=== PATIENT | female | born 1965 | race Caucasian/White ===

== ENCOUNTER 2016-02-29 18:25 | Emergency (ER) | payer BC, OTHER ==
[~2016-02-29] VITALS: Ht 165.1 cm; Wt 51.1 kg
[~2016-02-29 18:25] MED LIST: ATENOLOL PO; COENCAP9 PO; CYM60 PO; GLUCOSAMINE PO; LEVOTHYROXINE PO; PRAVASTATIN PO
[2016-02-29 18:28] VITALS: TEMP 36.4; Ht 165.1 cm; Wt 51.1 kg
[2016-02-29] MEDS ORDERED: LORAZEPAM 1 MG TAB SL STA ×2 (19:04→19:58)
[2016-02-29 19:21] LABS: URINE APPEARANCE CLEAR (CLEAR); URINE BILIRUBIN NEG (NEG); URINE COLOR YELLOW; URINE NITRITE NEG (NEG); URINE PH 6.5 (4.5-7.5); UROBILINOGEN NEG (NEG); ZZUR CULT IF INDIC CLEAN CATCH NO
[2016-02-29 19:23] LABS: PREG INTERNAL NEGATIVE QC NEG CLEAR BACKGROUND; PREG INTERNAL POSITIVE QC POS CONTROL LINE
[2016-02-29 19:31] LABS: MANUAL MICROSCOPIC REQUIRED? NO; REVIEW REQ? YES
[2016-02-29 19:32] LABS: URINE EPITHELIAL CELL AUTO 0-5 /lpf (0-5)
[2016-02-29 19:37] LABS: BASO % 0.1 %; BASO ABS # 0.01 K/uL (0-0.2); COMPLETE YES; EOS % 0.6 %; HEMATOCRIT 39.1 % (37-47); IG% 0.1 %; LYMPH % 29.4 %; LYMPH ABS # 2.27 K/uL (1.2-3.4); MEAN CELL VOLUME 90.5 fL (80-100); MEAN CORPUSCULAR HEMOGLOBIN 31.3 pg (25-34); MEAN CORPUSCULAR HGB CONC 34.5 g/dl (32-36); MEAN PLATELET VOLUME 11.4 fL (7.4-10.4); MONO % 9.5 %; NEUT % 60.3 %; PLATELET COUNT 166 K/uL (130-400); RED BLOOD COUNT 4.32 M/uL (4.2-5.4); WHITE BLOOD COUNT 7.72 K/uL (4.8-10.8)
[2016-02-29 19:44] LABS: BENZODIAZEPINE, URINE NEG (NEG); COCAINE,URINE NEG (NEG); PHENCYCLIDINE, URINE NEG (NEG)
[2016-02-29 19:52] LABS: BUN/CREATININE RATIO 21.1 (10-20); CALCIUM 8.6 mg/dl (8.5-10.1); CREATININE 0.98 mg/dl (0.60-1.20); POTASSIUM 3.8 mmol/L (3.5-5.1)
[2016-02-29 20:03] LABS: ALB/GLOB RATIO 1.1 (0.9-2); THYROID STIMULATING HORMONE 2.86 uIu/ml (0.300-4.500)
[2016-02-29 20:07] LABS: ACETAMINOPHEN < 2 ug/ml (10-30)
--- NOTE | 2016-02-29 20:20 | EMERGENCY ROOM VISIT NOTE ---
History Report prepared by Marquise: Stanislav Mccabe Under the Supervision of: Dr. Jose Hsu M.D. First contact with patient: 18:56 Chief Complaint: MENTAL HEALTH EVALUATION Stated Complaint: DEPRESSION History of Present Illness The patient is a 51 year old female who presents to the Emergency Room with complaints of persistent depression beginning over a month ago. She has a history of anxiety and depression. She takes medication for her anxiety and depression. The patient admits that she has had thoughts of harming herself. She denies any drug or alcohol use. She also states that she has been hearing voices that aren't there. The patient notes that she has been trying to quit smoking, and she tends to hear voices when she feels the urge to smoke. She denies any homicidal ideation. She notes that she hits herself sometimes, but has never tried to kill herself before. Nothing has improved the patient's symptoms. The patient's daughter states that the patient has been having a really tough last year. She states that the patient has been dealing with currently unidentified medical problem that has caused her to lose 50 pounds. She states that the patient has been going through a divorce as well. The patient's daughter notes that the patient is allergic to many psychiatric medications and has had a lot of trouble finding medications that work. She states that the patient is on Klonopin and Trazodone. Source of History: patient, family (daughter) Onset: over a month ago Quality: other (depression) Timing: other (persistent) Modifying Factors (Relieving): other (none) Note: The patient has been hearing voices. Review of Systems See HPI for pertinent positives & negatives. A total of 10 systems reviewed and were otherwise negative. Past Medical & Surgical Medical Problems: (1) Anxiety (2) Depression (3) post op Family History No pertinent family history stated. Social History Smoking Status: Current Every Day Smoker Marital Status: Current/Historical Medications Scheduled Cholecalciferol (Vitamin D3), 1 TAB PO QPM Clonazepam (Klonopin), 0.5 MG PO BID Gabapentin (Neurontin), 200 MG PO TID Levothyroxine Sodium (Levothyroxine Sodium), 1 TAB PO DAILY Pseudoephedrine (Sudafed), 30 MG PO DAILY Pyridoxine (Vitamin B6), 25 MG PO DAILY Trazodone Hcl (Trazodone), 50 MG PO QPM [Atenolol], 50 MG PO DAILY [Pravastatin], 40 MG PO HS Allergies Coded Allergies: CI Pigment Blue 63 (Unverified Allergy, Severe, facial swelling, 02/29/16) Duloxetine (Unverified Allergy, Severe, facial swelling, 02/29/16) Mirtazapine (Unverified Allergy, Severe, hives, 02/29/16) Sertraline (Unverified Allergy, Severe, hives, 02/29/16) Nitrofurantoin (Verified Allergy, Unknown, Hives, 02/29/16) Sulfa Drugs (Verified Allergy, Unknown, HIVES, 02/29/16) Physical Exam Vital Signs Date Time Temp Pulse Resp B/P Pulse Ox O2 Delivery O2 Flow Rate FiO2 02/29/16 20:54 80 20 134/77 99 Room Air 02/29/16 18:28 36.4 112 22 174/108 97 Room Air Physical Exam PSYCH: Admits suicidal ideation. Denies homicidal ideations. Admits to auditory hallucinations. GENERAL: Patient is severely anxious appearing, sobbing uncontrollably. HEENT: No acute trauma, normocephalic atraumatic, mucous membranes moist, no nasal congestion, no scleral icterus. NECK: No stridor, no adenopathy, no meningismus, trachea is midline. LUNGS: No dyspnea. Clear to auscultation and equal bilaterally. No wheeze, no rhonchi. HEART: Regular rate and rhythm. No murmurs, rubs, gallops appreciated. ABDOMEN: Soft, nontender, bowel sounds positive, no masses appreciated, no peritonitis. BACK: No midline tenderness, no CVA tenderness EXTREMITIES: Normal motion all extremities, no cyanosis, no edema. NEUROLOGIC: Alert and oriented, no acute motor or sensory deficits, no focal weakness, cranial nerves grossly intact. SKIN: No rash, no jaundice, no diaphoresis. Medical Decision & Procedures Laboratory Results 02/29/16 19:25 Red Blood Count 4.32, Mean Corpuscular Volume 90.5, Mean Corpuscular Hemoglobin 31.3, Mean Corpuscular Hemoglobin Concent 34.5, Mean Platelet Volume 11.4, Neutrophils (%) (Auto) 60.3, Lymphocytes (%) (Auto) 29.4, Monocytes (%) (Auto) 9.5, Eosinophils (%) (Auto) 0.6, Basophils (%) (Auto) 0.1, Neutrophils # (Auto) 4.65, Lymphocytes # (Auto) 2.27, Monocytes # (Auto) 0.73, Eosinophils # (Auto) 0.05, Basophils # (Auto) 0.01 02/29/16 19:25 Test 02/29/16 18:39 02/29/16 19:25 Urine Color YELLOW Urine Appearance CLEAR (CLEAR) Urine pH 6.5 (4.5-7.5) Urine Specific [place] 1.000 (1.000-1.030) Urine Protein NEG (NEG) Urine Glucose (UA) NEG (NEG) Urine Ketones NEG (NEG) Urine Occult Blood NEG (NEG) Urine Nitrite NEG (NEG) Urine Bilirubin NEG (NEG) Urine Urobilinogen NEG (NEG) Urine Leukocyte Esterase NEG (NEG) Urine WBC (Auto) 0 /hpf (0-5) Urine RBC (Auto) 0-4 /hpf (0-4) Urine Hyaline Casts (Auto) 0 /lpf (0-5) Urine Epithelial Cells (Auto) 0-5 /lpf (0-5) Urine Bacteria (Auto) NEG (NEG) Urine Test NEG (NEG) Urine Opiates Screen NEG (NEG) Urine Methadone, Qualitative NEG (NEG) Urine Barbiturates NEG (NEG) Urine Phencyclidine (PCP) Level NEG (NEG) Ur Amphetamine/Methamphetamine NEG (NEG) MDMA (Ecstasy) Screen NEG (NEG) Urine Benzodiazepines Screen NEG (NEG) Urine Cocaine Metabolite NEG (NEG) Urine Marijuana (THC) NEG (NEG) White Blood Count 7.72 K/uL (4.8-10.8) Red Blood Count 4.32 M/uL (4.2-5.4) Hemoglobin 13.5 g/dL (12.0-16.0) Hematocrit 39.1 % (37-47) Mean Corpuscular Volume 90.5 fL (80-100) Mean Corpuscular Hemoglobin 31.3 pg (25-34) Mean Corpuscular Hemoglobin Concent 34.5 g/dl (32-36) Platelet Count 166 K/uL (130-400) Mean Platelet Volume 11.4 fL (7.4-10.4) Neutrophils (%) (Auto) 60.3 % Lymphocytes (%) (Auto) 29.4 % Monocytes (%) (Auto) 9.5 % Eosinophils (%) (Auto) 0.6 % Basophils (%) (Auto) 0.1 % Neutrophils # (Auto) 4.65 K/uL (1.4-6.5) Lymphocytes # (Auto) 2.27 K/uL (1.2-3.4) Monocytes # (Auto) 0.73 K/uL (0.11-0.59) Eosinophils # (Auto) 0.05 K/uL (0-0.5) Basophils # (Auto) 0.01 K/uL (0-0.2) RDW Standard Deviation 41.1 fL (36.4-46.3) RDW Coefficient of Variation 12.5 % (11.5-14.5) Immature Granulocyte % (Auto) 0.1 % Immature Granulocyte # (Auto) 0.01 K/uL (0.00-0.02) Anion Gap 10.0 mmol/L (3-11) Est Creatinine Clear Calc Drug Dose 55.4 ml/min Estimated GFR () 78.0 Estimated GFR (Non- 67.3 BUN/Creatinine Ratio 21.1 (10-20) Calcium Level 8.6 mg/dl (8.5-10.1) Total Bilirubin 0.2 mg/dl (0.2-1) Aspartate Amino Transf (AST/SGOT) 27 U/L (15-37) Alanine Aminotransferase (ALT/SGPT) 41 U/L (12-78) Alkaline Phosphatase 73 U/L (45-117) Total Protein 6.6 gm/dl (6.4-8.2) Albumin 3.5 gm/dl (3.4-5.0) Globulin 3.1 gm/dl (2.5-4.0) Albumin/Globulin Ratio 1.1 (0.9-2) Thyroid Stimulating Hormone (TSH) 2.860 uIu/ml (0.300-4.500) Free Thyroxine 0.99 ng/dl (0.80-1.60) Salicylates Level 2.3 mg/dl (2.8-20) Acetaminophen Level < 2 ug/ml (10-30) Ethyl Alcohol mg/dL < 3.0 mg/dl (0-3) Laboratory results as reviewed by me. Medications Administered Medications (Trade) Dose Ordered Sig/Dhaval Route Start Time Stop Time Status Last Admin Dose Admin Lorazepam (Ativan Tab) 1 mg NOW STAT SL 02/29/16 19:04 02/29/16 19:05 DC 02/29/16 19:13 1 MG Lorazepam (Ativan Tab) 1 mg NOW STAT SL 02/29/16 19:58 02/29/16 19:59 DC 02/29/16 20:04 1 MG ED Course 1856: The patient was evaluated in room A5. A complete history and physical exam was performed. 1903: Ordered Ativan Tab 1 mg SL. 1954: I checked in on the patient. She was calm for a few minutes, but then began sobbing uncontrollably. 1957: Ordered Ativan Tab 1 mg SL. 1958: The patient has been medically cleared. She is awaiting her mental health evaluation. 21:45: Accepted NATALYA Mabry pending normal T4 and EKG. Medical Decision Differential: Mood Disorder, Overdose, Infectious, Electrolyte Abnormality, Cardiac, Hepatic, Endocrine, Toxicologic, Neurologic, amongst other pathologies entertained. 51 yr old female arrives severely upset and crying. She is severely depressed and is now admitting to suicidal ideation. Medication changes without improvement recently. Clearly she is in need of inpatient treatment at this time and she/family agree. She is stable, feeling better with ativan and labs look normal. NATALYA Mabry accepting but request T4 level and EKG first which were both unremarkable. BP much improved with calming down. Impression Primary Impression: Depression Additional Impressions: Suicidal ideation, Acute anxiety, Auditory hallucinations Scribe Attestation The scribe's documentation has been prepared under my direction and personally reviewed by me in its entirety. I confirm that the note above accurately reflects all work, treatment, procedures, and medical decision making performed by me. Departure Information Dispostion Still a Patient Referrals Janelle Nguyen M.D. (PCP) Patient Instructions A Signature Page, My [facility]
[2016-02-29] MEDS ORDERED: LEVO75TA5 PO (21:19)
[2016-02-29] MEDS ORDERED: CHOL1000 PO (21:21)
[2016-02-29] MEDS ORDERED: PYRI100T4 PO (21:24)
[2016-02-29] MEDS ORDERED: GABA-112 PO (21:25)
[2016-02-29] MEDS ORDERED: CLON0.5T3 PO (21:26)
[2016-02-29] MEDS ORDERED: TRAZ50TA35 PO (21:27)
[2016-02-29] MEDS ORDERED: PSEU30TA20 PO (21:30)
[2016-03-01 00:20] VITALS: BP 123/78; PULSE 90; O2SAT 98
== END 2016-03-01 00:29 ==
LOC: C.EDB 18:27 → C.EDA 03-01 00:29
DX: F32.9 Major depressive disorder, single episode, unspecified (principal); R45.851 Suicidal ideations; F41.9 Anxiety disorder, unspecified; R44.0 Auditory hallucinations; Z79.899 Other long term (current) drug therapy

== ENCOUNTER → 2016-06-09 | Outpatient (CLI) | payer BC ==
[~2016-06-09] MED LIST changes: +CHOL1000 PO; +CLON0.5T3 PO; -COENCAP9 PO; -CYM60 PO; +GABA-112 PO; -GLUCOSAMINE PO; +LEVO75TA5 PO; -LEVOTHYROXINE PO; +PSEU30TA20 PO; +PYRI100T4 PO; +TRAZ50TA35 PO
--- NOTE | 2016-06-10 15:02 | MAMMOGRAPHY REPORT ---
BILATERAL DIGITAL SCREENING MAMMOGRAM TOMOSYNTHESIS WITH CAD: 06/09/2016 CLINICAL HISTORY: Routine screening. TECHNIQUE: Breast tomosynthesis in addition to standard 2D mammography was performed. Current study was also evaluated with a Computer Aided Detection (CAD) system. COMPARISON: Comparison is made to exams dated: 06/10/2015 ultrasound, 06/10/2015 mammogram, 05/28/2015 mammogram, 10/30/2013 mammogram, 09/15/2012 mammogram - [facility], and 11/05/2008. BREAST COMPOSITION: The tissue of both breasts is extremely dense, which lowers the sensitivity of mammography. FINDINGS: The breasts are increasingly dense compared to prior available mammograms, likely due to w eight loss. No suspicious mass, architectural distortion or cluster of new, suspicious microcalcifi cations is seen. IMPRESSION: ACR BI-RADS CATEGORY 1: NEGATIVE There is no mammographic evidence of malignancy. A 1 year screening mammogram is recommended. The p atient will receive written notification of the results. Approximately 10% of breast cancers are not detected with mammography. A negative mammographic repor t should not delay biopsy if a clinically suggestive mass is present. Olinda Reis M.D. ay/:06/09/2016 16:54:14 [place] Worker: Rosalind HOWE(R)(M), [facility] letter sent: Normal 1/2 BI-RADS Code: ACR BI-RADS Category 1: Negative
== END | disposition home or self-care (01) ==
LOC: C.MAMM 16:31
PROVIDERS: ATTEND Family Medicine
DX: Z12.31 Encounter for screening mammogram for malignant neoplasm of breast (principal)

== ENCOUNTER → 2016-08-16 | Outpatient (CLI) | payer BC ==
--- NOTE | 2016-08-16 07:01 | DIAGNOSTIC IMAGING REPORT ---
CT pelvis PELVIS W/ORAL CONT ONLY (CT) CLINICAL HISTORY: RLQ PAIN pain TECHNIQUE: Transaxial acquisition of multi axial reformatted images COMPARISON STUDY: 12/04/2015 FINDINGS: Negative study. Unremarkable bowel pattern. No abnormal mass or collection. IMPRESSION: Negative study Electronically signed by: Patricio Elizalde M.D. 08/16/2016 7:00 AM Dictated Date/Time: 08/16/2016 6:58 AM
== END | disposition home or self-care (01) ==
LOC: C.CTS 05:30
PROVIDERS: ATTEND Family Medicine
DX: R10.9 Unspecified abdominal pain (principal)

== ENCOUNTER → 2017-04-12 | Outpatient (CLI) | payer OTHER ==
--- NOTE | 2017-04-12 16:13 | PULMONARY FUNCTION TEST ---
CLINICAL DATA: A 52-year-old female with a height of 65 inches and a weight of 120 pounds, referred by Dr. Underwood for shortness of breath. Spirometry pre-bronchodilator was performed. FINDINGS: Prebronchodilator spirometry demonstrates mild obstructive airways disease. FVC was 105% of predicted. FEV1 was 79% of predicted. [id number] was 32% of predicted. IMPRESSION: Mild obstructive airways disease.
== END | disposition home or self-care (01) ==
LOC: C.RC 12:38
PROVIDERS: ATTEND Family Medicine
DX: Z72.0 Tobacco use (principal); R06.02 Shortness of breath

== ENCOUNTER 2018-11-14 16:24 | Observation (INO) ==
[2018-11-14] MEDS ORDERED: SODIUM CHLORIDE 0.9% 1000ML 1,000 ML IV ONE (16:53)
[2018-11-14] MEDS ORDERED: FAMOTIDINE 20MG/5ML IV PUSH IV STA (16:53)
[2018-11-14] MEDS ORDERED: DiphenhydrAMINE HCL 50 MG/ML VIAL IV STA (16:53)
[2018-11-14] MEDS ORDERED: methylPREDNISolone 125 MG/2 ML VIAL IV STA (16:53)
[2018-11-14 17:25] LABS: Appearance Urine Cloudy (Clear); Bilirubin Urine Negative (Negative); Blood Urine Negative (Negative); Color Urine Yellow; Glucose Urine UA Negative (Negative); Ketones Urine Negative (Negative); Leukocyte Esterase Urine Negative (Negative); Nitrite Urine Negative (Negative); Protein Urine Negative (Negative); Specific Gravity Urine 1.013 (1.000-1.030); Urobilinogen Urine Negative (Negative)
[2018-11-14 17:26] LABS: Basophils # (auto) 0.01 K/uL (0-0.2); Basophils % (auto) 0.1 %; Eosinophils # (auto) 0.04 K/uL (0-0.5); Eosinophils % (auto) 0.3 %; Hematocrit (blood only) 38.1 % (37-47); Hemoglobin 13.2 g/dL (12.0-16.0); Immature Granulocytes # (auto) 0.02 K/uL (0.00-0.02); Immature Granulocytes % (auto) 0.2 %; Lymphocytes # (auto) 1.02 K/uL (1.2-3.4); Lymphocytes % (auto) 8.1 %; Mean Corpuscular Hemoglobin 31.5 pg (25-34); Mean Corpuscular Hgb Conc 34.6 g/dL (32-36); Mean Corpuscular Volume 90.9 fL (80-100); Mean Platelet Volume 10.1 fL (7.4-10.4); Monocytes # (auto) 0.36 K/uL (0.11-0.59); Monocytes % (auto) 2.9 %; Neutrophils # (auto) 11.16 K/uL (1.4-6.5); Neutrophils % (auto) 88.4 %; Platelet Count 189 K/uL (130-400); RDW Coefficient of Variation 13.2 % (11.5-14.5); RDW Standard Deviation 43.9 fL (36.4-46.3); Red Blood Count 4.19 M/uL (4.2-5.4); White Blood Count 12.61 K/uL (4.8-10.8)
[2018-11-14 17:37] LABS: Bacteria Urine Automated Negative (Negative); Cast Urine Automated 0 /lpf (0-5); Epithelial Cell Urine Auto 0-5 /lpf (0-5); RBC Urine Automated 0-4 /hpf (0-4)
[2018-11-14] MEDS ORDERED: cefTRIAXone SODIUM 2,000 MG/70 ML BAG IV STA (17:40)
[2018-11-14] MEDS ORDERED: AZITHROMYCIN 1,000 MG in DEXTROSE 5% 250 ML IV ONE (17:40)
[2018-11-14 17:52] LABS: Albumin Level 3.6 gm/dl (3.4-5.0); BUN Creatinine Ratio 10.5 (10-20); C Reactive Protein 1.68 mg/dl (0-0.29); Calcium 9.2 mg/dl (8.5-10.1); Creatinine Clr Calc Pharmacy 73.1 ml/min; Est GFR (African American) 96.8; Est GFR (Non-African American) 83.5; Potassium 3.7 mmol/L (3.5-5.1)
[2018-11-14 17:55] LABS: Albumin Globulin Ratio 1.1 (0.9-2); Bilirubin,Total 0.3 mg/dl (0.2-1); Globulin 3.3 gm/dl (2.5-4.0); Total Protein 6.9 gm/dl (6.4-8.2)
--- NOTE | 2018-11-14 18:08 | XRay Report ---
XR chest 1V portable CLINICAL HISTORY: eval for pna dyspnea COMPARISON STUDY: No previous studies for comparison. FINDINGS: The bones soft tissues and hemidiaphragms are normal. The cardiomediastinal silhouette is n ormal. The lungs are clear. The pulmonary vasculature is normal. IMPRESSION: Negative chest. The above report was generated using voice recognition software. It may contain grammatical, syntax or spelling errors. Electronically signed by: Patricio Elizalde M.D. 11/14/2018 6:06 PM
[2018-11-14 18:22] LABS: Lyme Ab IgG w/WB Rflx Negative (Negative); Lyme Ab IgM w/WB Rflx Negative (Negative)
[2018-11-14] MEDS ORDERED: MoRPHine SULFATE 4 MG/ML 1 ML CARP\\VIAL IV STA (18:40)
--- NOTE | 2018-11-14 21:08 | History & Physical Report ---
Date of Service November 14, 2018 Assessment & Plan (1) Rash: 53 yo F with PMHx HTN, Hypothyroidism, anxiety, depression admitted for diffuse rash and polyarthralgias with history of unprotected sex and exposure to Macrobid. Diffuse Urticarial Rash and Polyarticular arthritis - Differential includes allergic urticaria, polyarthritis due to STI, relapsing polychondritis. - Pt afebrile here, no longer tachycardic. - Pt has a history of allergy to Macrobid in the past with similar reaction, however much less severe. - Lyme IgG and IgM negative. - White count mildly elevated to 12.61 with a left shift. - GC/Chlamydia pending. - HIV 1/2, HSV 1+2, RPR pending. - Elevated CRP here to 1.68, ESR pending. - Benadryl 25mg IV Q6H, Methylpred 40mg IV Q8H. Hypertension - Normotensive on this admission. - Continue home amlodipine 5mg daily. Hypothyroidism - Continue home levothyroxine 88mcg daily. Anxiety and Depression - Continue home Fluoxetine 40mg daily, Trazodone 100mg PO QHS. Dispo: Med/Surg FEN: Regular Diet DVT Prophylaxis: SCDs, ambulate as tolerates Code Status: FULL CODE Present on Admission?: Yes (2) Polyarticular arthritis: Present on Admission?: Yes (3) Hypertension: Present on Admission?: Yes (4) Depression: Present on Admission?: Yes (5) Anxiety: Present on Admission?: Yes (6) Hypothyroidism: Present on Admission?: Yes History of Present Illness 53-year-old female with past medical history of essential hypertension, depression, hypothyroidism and chronic nonspecific joint disease presented to the hospital with new onset acute itchy papular rash widespread on back and upper part of the chest associated with swelling and tenderness in both hands and ears. Patient gives history of unprotected sex 2 weeks ago, so she was checked for chlamydia, gonorrhea, herpes, HIV which she gave verbal consent, syphilis, She gives history of intermittent swelling tenderness which plummeted suspicious for relapsing polychondritis, in any event itchy rash she was giving Benadryl, steroid Sedimentation rate and CRP were ordered Most likely patient will need to follow-up with insulation nozzleman an outpatient Will continue to follow-up results of sexually-transmitted diseases Chief Complaint: rash Primary Care Provider: Janelle Nguyen 53 yo F PMHx HTN, depression, anxiety, hypothyroidism presents for pruritic rash x4 days. Reports that she was recently on a 7-day course of Macrobid for a UTI started on 11/06/18 which she completed. Began noticing some itching in her groin area first on , but since then has begun spreading to other areas of her body like her neck, back, further spreading in her groin and onto her legs and arms in a more minor way. In ED today reported that her right tongue felt a bit swollen which was what scared her into coming to the ER. Complains of some associated diffuse joint pain, swelling, and redness of her hands. Also notes that her ears feel very hot. Also reports having unprotected sex ~2 weeks ago and did not notice any lesions on her partner; is unaware of his STD status. Reports no dysuria, hematuria, vaginal discharge or pruritus. In ED here was presumptively treated for gonococcal infection with azithromycin, given Benadryl and morphine for pain and itching, and one dose methylpred. Workup started for STIs and admitting team consulted. On further interview reports no new exposures of medications other than the Macrobid. No new clothing, no new products at home or at work such as cleansers. No new foods tried. No time spent in the rojas. Reports that she vaguely recollects a physician telling her "something about Lupus". No family history of rheumatologic disease. States that she had a similar reaction to the last time she was on Macrobid, but less severe. Has had some complaints of joint pains in the past but also less severe. On interview now patient denies SOB, tongue swelling, chest pain, abdominal pain, diarrhea, constipation. Allergies Allergy/AdvReac Type Severity Reaction Status Date / Time blue dye Allergy Severe Facial Verified 11/14/18 17:34 swelling duloxetine Allergy Severe Facial Verified 11/14/18 17:34 swelling mirtazapine Allergy Severe Hives Verified 11/14/18 17:34 sertraline Allergy Severe Hives Verified 11/14/18 17:34 nitrofurantoin Allergy Unknown Hives Verified 02/29/16 18:30 Sulfa (Sulfonamide Allergy Unknown Hives Verified 11/14/18 17:34 Antibiotics) Home Medications Home Medications Medication Instructions Recorded Confirmed Type acetaminophen [Tylenol Extra 500 mg PO DIRECTED PRN 11/14/18 11/14/18 History Strength] amlodipine 5 mg PO QAM 11/14/18 11/14/18 History diphenhydramine HCl [Benadryl 25 mg PO DIRECTED PRN 11/14/18 11/14/18 History Allergy] fluoxetine 40 mg PO DAILY 11/14/18 11/14/18 History gabapentin 200 mg PO TID 11/14/18 11/14/18 History levothyroxine 88 mcg PO QAM 11/14/18 11/14/18 History pravastatin 40 mg PO HS 11/14/18 11/14/18 History trazodone 100 mg PO HS 11/14/18 11/14/18 History Past Med/Surg History Medical History Hypertension Depression (Chronic) Anxiety (Chronic) Social History Preferred Language: Occitan Communication Ability: Effective 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 Beliefs That Will Affect Care: None Current Living Situation: Alone Other Information That Helps Us Care for You: No Feels Safe at Home: Yes Safety Concerns: Feels Safe At This Time Smoking Status: Current every day smoker Tobacco Type: cigarettes ; Cigarettes Per Day: 12 per day ; Do You Dip or Chew Tobacco: No ; Hx Alcohol Use: Yes Alcohol type: beer Hx Substance Use: No Review of Systems Constitutional: + fatigue and + malaise; no fever and no chills Eyes: no dry eyes and no itchy eyes Ear, Nose, Mouth, Throat: no dysphagia "hot" ears Respiratory: no cough, no dyspnea and no wheezing Cardiovascular: no chest pain, no palpitations and no edema Gastrointestinal: no abdominal pain, no nausea, no vomiting, no constipation and no diarrhea/loose stools Genitourinary: no dysuria, no urinary frequency, no urinary urgency and no hematuria Musculoskeletal: + joint pain (hands, wrists, elbows, toes, ankles) Integumentary: + rash and + urticaria Physical Exam Constitutional: WD/WN, vitals as above Eyes: PERRL, conjunctivae normal, anicteric sclerae ENMT: Ears: Cartilage of bilateral ears is erythematous and swollen Neck: trachea midline, no thyromegaly Respiratory: normal respiratory effort, lungs clear to auscultation Cardiovascular: RRR, no murmur, no edema Gastrointestinal (Abdomen): normal bowel sounds, soft, nontender, no hepatosplenomegaly Musculoskeletal: no cyanosis or clubbing, extremities motor strength 5/5 - Left 4th MCP swollen, erythematous, TTP. - TTP of DIP, MCP of bilateral hands. Tenderness with range of motion in the form of clenching fist. Skin: + rash - Multiple wheals with surrounding erythema present on neck, scalp, back, chest, hands, intertriginous and vulvar areas. No vaginal lesions. Lesions are not vesicular in character. No drainage from lesions. Lesions not TTP. - Bilateral hands appear grossly swollen. No LE swelling. Psychiatric: A+Ox3, euthymic affect Lymphatic: no cervical or axillary lymphadenopathy Results & Data Vital Signs (Past 12 Hours) Vital Signs Temp Pulse Pulse Resp BP BP Pulse Ox 11/14/18 18:32 83 19 129/80 99 11/14/18 17:51 80 20 134/70 98 11/14/18 16:28 36.6 C 108 H 18 119/56 L 98 Laboratory Results Laboratory Results - last 24 hr 11/14/18 11/14/18 11/14/18 17:03 17:03 17:03 WBC RBC Hgb Hct MCV MCH MCHC RDW Std Deviation RDW Coeff of Anette Plt Count MPV Immature Gran % (Auto) Neut % (Auto) Lymph % (Auto) Lake % (Auto) Eos % (Auto) Baso % (Auto) Immature Gran # (Auto) Neut # (Auto) Lymph # (Auto) Lake # (Auto) Eos # (Auto) Baso # (Auto) ESR 13 Sodium 139 Potassium 3.7 Chloride 106 Carbon Dioxide 25 Anion Gap 8.0 BUN 9 Creatinine 0.81 Est Cr Clr Drug Dosing 73.1 Est GFR ( Amer) 96.8 Est GFR (Non-Af Amer) 83.5 BUN/Creatinine Ratio 10.5 Glucose 98 Calcium 9.2 Total Bilirubin 0.3 AST 18 ALT 17 Alkaline Phosphatase 67 C-Reactive Protein 1.68 H Total Protein 6.9 Albumin 3.6 Globulin 3.3 Albumin/Globulin Ratio 1.1 Urine Color Urine Appearance Urine pH Ur Specific [place] Urine Protein Urine Glucose (UA) Urine Ketones Urine Blood Urine Nitrite Urine Bilirubin Urine Urobilinogen Ur Leukocyte Esterase Urine WBC (Auto) Urine RBC (Auto) U Hyaline Cast (Auto) U Epithel Cells (Auto) Urine Bacteria (Auto) POC Ur Test RPR Lyme Disease IgG Ab Negative Lyme Disease IgM Ab Negative C.trachomatis RNA Herpes Virus Source HSV I DNA PCR HSV II DNA PCR HIV 1&2 Ab/P24 Ag 4thGn N.gonorrhoeae RNA 11/14/18 11/14/18 11/14/18 17:03 17:10 17:10 WBC 12.61 H RBC 4.19 L Hgb 13.2 Hct 38.1 MCV 90.9 MCH 31.5 MCHC 34.6 RDW Std Deviation 43.9 RDW Coeff of Anette 13.2 Plt Count 189 MPV 10.1 Immature Gran % (Auto) 0.2 Neut % (Auto) 88.4 Lymph % (Auto) 8.1 Lake % (Auto) 2.9 Eos % (Auto) 0.3 Baso % (Auto) 0.1 Immature Gran # (Auto) 0.02 Neut # (Auto) 11.16 H Lymph # (Auto) 1.02 L [place] # (Auto) 0.36 Eos # (Auto) 0.04 Baso # (Auto) 0.01 ESR Sodium Potassium Chloride Carbon Dioxide Anion Gap BUN Creatinine Est Cr Clr Drug Dosing Est GFR ( Amer) Est GFR (Non-Af Amer) BUN/Creatinine Ratio Glucose Calcium Total Bilirubin AST ALT Alkaline Phosphatase C-Reactive Protein Total Protein Albumin Globulin Albumin/Globulin Ratio Urine Color Yellow Urine Appearance Cloudy A Urine pH 5.0 Ur Specific [place] 1.013 Urine Protein Negative Urine Glucose (UA) Negative Urine Ketones Negative Urine Blood Negative Urine Nitrite Negative Urine Bilirubin Negative Urine Urobilinogen Negative Ur Leukocyte Esterase Negative Urine WBC (Auto) 1-5 Urine RBC (Auto) 0-4 U Hyaline Cast (Auto) 0 U Epithel Cells (Auto) 0-5 Urine Bacteria (Auto) Negative POC Ur Test NEG RPR Lyme Disease IgG Ab Lyme Disease IgM Ab C.trachomatis RNA Herpes Virus Source HSV I DNA PCR HSV II DNA PCR HIV 1&2 Ab/P24 Ag 4thGn N.gonorrhoeae RNA 11/14/18 11/14/18 11/14/18 17:40 20:35 20:35 WBC RBC Hgb Hct MCV MCH MCHC RDW Std Deviation RDW Coeff of Anette Plt Count MPV Immature Gran % (Auto) Neut % (Auto) Lymph % (Auto) Lake % (Auto) Eos % (Auto) Baso % (Auto) Immature Gran # (Auto) Neut # (Auto) Lymph # (Auto) Lake # (Auto) Eos # (Auto) Baso # (Auto) ESR Sodium Potassium Chloride Carbon Dioxide Anion Gap BUN Creatinine Est Cr Clr Drug Dosing Est GFR ( Amer) Est GFR (Non-Af Amer) BUN/Creatinine Ratio Glucose Calcium Total Bilirubin AST ALT Alkaline Phosphatase C-Reactive Protein Total Protein Albumin Globulin Albumin/Globulin Ratio Urine Color Urine Appearance Urine pH Ur Specific [place] Urine Protein Urine Glucose (UA) Urine Ketones Urine Blood Urine Nitrite Urine Bilirubin Urine Urobilinogen Ur Leukocyte Esterase Urine WBC (Auto) Urine RBC (Auto) U Hyaline Cast (Auto) U Epithel Cells (Auto) Urine Bacteria (Auto) POC Ur Test RPR Pending Lyme Disease IgG Ab Lyme Disease IgM Ab C.trachomatis RNA Pending Herpes Virus Source Pending HSV I DNA PCR Pending HSV II DNA PCR Pending HIV 1&2 Ab/P24 Ag 4thGn Pending N.gonorrhoeae RNA Pending Code Status & VTE Plan Code Status FULL VTE Prophylaxis Plan VTE Prophylaxis will be ordered: Yes PG Care Time/CCT Total # of Minutes Spent Total Time Spent with Patient: Total time spent is greater than 50% in coordination of care (as documented) at patient's floor/unit and/or counseling patient: Resident Activity Tracking Resident Involvement: Resident Care Provided Care Provided: Adult Hospital Medicine (1) Depression Active/Remission status: in remission of unspecified degree Depression Type: major depressive disorder Major depression recurrence: unspecified whether recurrent Qualified Code(s): F32.5 - Major depressive disorder, single episode, in full remission (2) Hypothyroidism Hypothyroidism type: unspecified Qualified Code(s): E03.9 - Hypothyroidism, unspecified (3) Hypertension Hypertension type: essential hypertension Qualified Code(s): I10 - Essential (primary) hypertension
[2018-11-14] MEDS ORDERED: ACETAMINOPHEN 325 MG TAB PO PRN (21:42)
[2018-11-14] MEDS ORDERED: NON-FORMULARY MEDICATION (Diphenhydramine Hcl [Benadryl Allergy] 25 MG) PO PRN (21:42)
[2018-11-14] MEDS ORDERED: POLYETHYLENE (MIRALAX) 17 GM PACK PO PRN (21:42)
[2018-11-14] MEDS ORDERED: ACETAMINOPHEN 500 MG TAB PO PRN (21:42)
[2018-11-14] MEDS ORDERED: MAGNESIUM HYDROXIDE SUSP 30 ML UDC PO PRN (21:42)
[2018-11-14] MEDS ORDERED: TRAZODONE HCL 100 MG TAB PO SCH (21:42)
[2018-11-14] MEDS ORDERED: PRAVASTATIN SOD 40 MG TAB PO SCH (21:42)
[2018-11-14] MEDS ORDERED: ALUMINUM/MAGNESIUM SUSP 30 ML UDC PO PRN (21:42)
[2018-11-14] MEDS: GABAPENTIN 100 MG CAP PO SCH (22:05)
--- NOTE | 2018-11-14 22:20 | Emergency Department Note ---
Entered by Kelly Horowitz acting as a scribe for History of Present Illness General Chief complaint: Allergic Reaction Stated complaint: ALLERGIC REACTION, HIVES, THROAT NUMBNESS Source: patient Limitations: no limitations History of Present Illness Onset (ago): day(s) 1 Location: head Pain Consistency: + constant and + other (worsening) Maximum Pain Intensity: 7 Quality: + other (allergic reaction) Relieved By: + other (Tylenol ) Associated symptoms: + denies other symptoms (current urinary symptoms, difficulty breathing, and throat tightness) and + other (sore joints, lightheadedness, rash, hives) The patient is a 53 year old female who presents to the Emergency Room with complaints of an allergic reaction that began yesterday at 13:00, about 28 hours ago. She reports that she had a UTI and was prescribed Macrobid 10 days ago, stating that she finished her dose 2 days ago. The patient reports that she noticed pruritic hives yesterday on her neck. She notes that the hives have since worsened, stating that she noticed hives on her back today. The patient complains of right-sided tongue swelling and tingling in her lips that began at 13:00 today. She reports that she noticed a rash in her pubic area after shaving 8-9 days ago, stating that the rash has spread to areas where she didn't shave. She states this is the same rash she has on her back. The patient complains of feeling feverish. She complains of joint soreness in her wrists and ankles and lightheadedness. The patient denies any current urinary symptoms, difficulty breathing, and throat tightness. She notes that Tylenol has provided some relief. The patient notes that she took Benadryl [employer] HEL[employer]. She reports that she called her PCP and was referred here. The patient notes a history of hypertension. Home Medications Home Medications Medication Instructions Recorded Confirmed Type acetaminophen [Tylenol Extra 500 mg PO DIRECTED PRN 11/14/18 11/14/18 History Strength] amlodipine 5 mg PO QAM 11/14/18 11/14/18 History diphenhydramine HCl [Benadryl 25 mg PO DIRECTED PRN 11/14/18 11/14/18 History Allergy] fluoxetine 40 mg PO DAILY 11/14/18 11/14/18 History gabapentin 200 mg PO TID 11/14/18 11/14/18 History levothyroxine 88 mcg PO QAM 11/14/18 11/14/18 History pravastatin 40 mg PO HS 11/14/18 11/14/18 History trazodone 100 mg PO HS 11/14/18 11/14/18 History Allergies Allergy/AdvReac Type Severity Reaction Status Date / Time blue dye Allergy Severe Facial Verified 11/14/18 17:34 swelling duloxetine Allergy Severe Facial Verified 11/14/18 17:34 swelling mirtazapine Allergy Severe Hives Verified 11/14/18 17:34 sertraline Allergy Severe Hives Verified 11/14/18 17:34 nitrofurantoin Allergy Unknown Hives Verified 02/29/16 18:30 Sulfa (Sulfonamide Allergy Unknown Hives Verified 11/14/18 17:34 Antibiotics) Past Med/Surg History Medical History Hypertension Depression (Chronic) Anxiety (Chronic) Social History Preferred Language: Scottish Communication Ability: Effective Detail Sergeant Required: No Beliefs That Will Affect Care: None Current Living Situation: Alone Other Information That Helps Us Care for You: No Feels Safe at Home: Yes Safety Concerns: Feels Safe At This Time Smoking Status: Current every day smoker Tobacco Type: cigarettes ; Cigarettes Per Day: 12 per day ; Do You Dip or Chew Tobacco: No ; Hx Alcohol Use: Yes Alcohol type: beer Hx Substance Use: No Review of Systems See HPI for pertinent positives & negatives. and A total of 10 systems reviewed and were otherwise negative Physical Exam Vital Signs Vital Signs - 24 hr 11/14/18 16:28 11/14/18 17:51 11/14/18 18:32 Temperature 36.6 C Temperature Source Oral Sepsis Recent Fever Within 48 Hours No Sepsis New/Unexplained Change in Mental Status No Sepsis Action Taken by Nursing No Action Required Pulse Rate 108 H Pulse Rate [Finger] 80 83 Respiratory Rate 18 20 19 Blood Pressure 119/56 L Blood Pressure [Right Arm] 134/70 129/80 Blood Pressure Mean 77 Blood Pressure Mean [Right Arm] 91 96 Pulse Oximetry 98 98 99 Oxygen Delivery Method Room Air 11/14/18 20:00 Temperature Temperature Source Sepsis Recent Fever Within 48 Hours Sepsis New/Unexplained Change in Mental Status Sepsis Action Taken by Nursing Pulse Rate Pulse Rate [Finger] 70 Respiratory Rate 19 Blood Pressure Blood Pressure [Right Arm] 119/59 L Blood Pressure Mean Blood Pressure Mean [Right Arm] 79 Pulse Oximetry 98 Oxygen Delivery Method Constitutional: Vital signs reviewed. Eyes: Pupils are equal round reactive to light. Conjunctiva are noninjected. ENT: Pharynx is clear without erythema or exudate. Mucous membranes are moist. No swelling to the uvula or tongue. There is a small 1 cm nodule to the right lateral tongue. Neck supple without meningeal signs. Respiratory: Clear to auscultation bilaterally. Breath sounds are equal bilaterally. Cardiovascular: Regular rate and rhythm. No rubs or gallops. GI: Soft, nondistended and nontender. Bowel sounds are present. : Erythematous nodules throughout the outer external genitalia. No significant discharge or erythema. Musculoskeletal: No peripheral edema. No lower extremity tenderness. Diffuse nodular erythematous lesions over her back. Some coalescence to the right ribs. Minimal scattered lesions to the leg. Lesions surrounding the genitalia outside of the hairline. No petechiae or purpura. Some lesion have a target appearance. No vesicles or bullae. Swelling to the left fourth digit with tenderness. Slight swelling to the wrist and ankles. Integumentary: No cyanosis. Neurological: The patient is awake and alert. No focal deficits. Psychiatric: Normal affect. Course 1640: The patient was evaluated in room B11. A complete history and physical exam was performed. 1716: I checked on the patient, and she stated that she has never has herpes. 1723: The patient told the nurse that she had unprotected sex three weeks ago. She denies any pelvic pain or abdominal vaginal discharge but would like a pelvic exam and some testing. 1830: I reevaluated the patient and updated her on the results. Her blood pressure improved. She requested pain medication. 1835: I spoke with Dr. Sade Freeman, [facility] hospitalist, about the patients case. He will further evaluate the patient. Consultations Consultation #1: I spoke with Dr. Sade Freeman, [facility] hospitalist, about the patients case. He will further evaluate the patient. Time: 18:35 Administered Medications Gabapentin (Neurontin) 200 mg PO TID TEODORO Stop: 12/14/18 21:41 Last Admin: 11/14/18 22:05 Dose: 200 mg Documented by: [id number] Pravastatin Sodium (Pravachol) 40 mg PO HS TEODORO Stop: 12/14/18 21:41 Last Admin: 11/14/18 22:04 Dose: 40 mg Documented by: [id number] Trazodone HCl (Desyrel) 100 mg PO HS TEODORO Stop: 12/14/18 21:41 Last Admin: 11/14/18 22:04 Dose: 100 mg Documented by: [id number] Discontinued Medications Diphenhydramine HCl (Benadryl) 50 mg IV NOW STA Stop: 11/14/18 16:54 Last Admin: 11/14/18 17:18 Dose: 50 mg Documented by: [id number] Famotidine (Pepcid 20mg Iv Push) 20 mg IV ONE STA Stop: 11/14/18 16:54 Last Admin: 11/14/18 17:18 Dose: 20 mg Documented by: [id number] Sodium Chloride (Nss 1000ml) 1,000 mls @ 999 mls/hr IV .Q1H1M ONE Stop: 11/14/18 17:53 Last Infusion: 11/14/18 18:32 Dose: 0 mls/hr Documented by: [id number] Admin: 11/14/18 17:17 Dose: 999 mls/hr Documented by: [id number] Azithromycin 1,000 mg/ (Dextrose) 260 mls @ 125 mls/hr IV ONE ONE Stop: 11/14/18 19:44 Last Infusion: 11/14/18 21:03 Dose: 0 mls/hr Documented by: [id number] Admin: 11/14/18 18:32 Dose: 125 mls/hr Documented by: [id number] Ceftriaxone Sodium (Rocephin) 2,000 mg in 70 mls @ 140 mls/hr IV NOW STA Stop: 11/14/18 18:09 Last Infusion: 11/14/18 19:23 Dose: 0 mls/hr Documented by: [id number] Admin: 11/14/18 18:32 Dose: 140 mls/hr Documented by: [id number] Methylprednisolone (Solumedrol) 125 mg IV NOW STA Stop: 11/14/18 16:54 Last Admin: 11/14/18 17:18 Dose: 125 mg Documented by: [id number] Morphine Sulfate (Morphine Sulfate) 4 mg IV NOW STA Stop: 11/14/18 18:41 Last Admin: 11/14/18 18:45 Dose: 4 mg Documented by: [id number] Medical Decision Making Differential Diagnosis The differential diagnosis includes: Disseminated gonococcal infection, erythema multiforme, erythema nodosum, urticaria, allergic reaction, and Lyme disease Medical Records Attestation: I reviewed the patient's medical records. I did perform a limited focused review of portions of the patient's old chart on the electronic medical record. The patient has had no recent pertinent visits to this hospital. Home Medications Current Medication List: was personally reviewed by me Laboratory Data Attestation: I reviewed the patient's lab results. Result diagrams: 11/14/18 17:03 11/14/18 17:03 Lab Results 11/14/18 11/14/18 11/14/18 Range/Units 17:03 17:03 17:03 WBC (4.8-10.8) K/uL RBC (4.2-5.4) M/uL Hgb (12.0-16.0) g/dL Hct (37-47) % MCV (80-100) fL MCH (25-34) pg MCHC (32-36) g/dL RDW Std Deviation (36.4-46.3) fL RDW Coeff of Anette (11.5-14.5) % Plt Count (130-400) K/uL MPV (7.4-10.4) fL Immature Gran % (Auto) % Neut % (Auto) % Lymph % (Auto) % [place] % (Auto) % Eos % (Auto) % Baso % (Auto) % Immature Gran # (Auto) (0.00-0.02) K/uL Neut # (Auto) (1.4-6.5) K/uL Lymph # (Auto) (1.2-3.4) K/uL [place] # (Auto) (0.11-0.59) K/uL Eos # (Auto) (0-0.5) K/uL Baso # (Auto) (0-0.2) K/uL ESR 13 (0-21) mm/hr Sodium 139 (136-145) mmol/L Potassium 3.7 (3.5-5.1) mmol/L Chloride 106 (98-107) mmol/L Carbon Dioxide 25 (21-32) mmol/L Anion Gap 8.0 (3-11) BUN 9 (7-18) mg/dl Creatinine 0.81 (0.6-1.2) mg/dl Est Cr Clr Drug Dosing 73.1 ml/min Est GFR ( Amer) 96.8 Est GFR (Non-Af Amer) 83.5 BUN/Creatinine Ratio 10.5 (10-20) Glucose 98 (70-99) mg/dl Calcium 9.2 (8.5-10.1) mg/dl Total Bilirubin 0.3 (0.2-1) mg/dl AST 18 (15-37) U/L ALT 17 (12-78) U/L Alkaline Phosphatase 67 (45-117) U/L C-Reactive Protein 1.68 H (0-0.29) mg/dl Total Protein 6.9 (6.4-8.2) gm/dl Albumin 3.6 (3.4-5.0) gm/dl Globulin 3.3 (2.5-4.0) gm/dl Albumin/Globulin Ratio 1.1 (0.9-2) Urine Color Urine Appearance (Clear) Urine pH (4.5-7.5) Ur Specific [place] (1.000-1.030) Urine Protein (Negative) Urine Glucose (UA) (Negative) Urine Ketones (Negative) Urine Blood (Negative) Urine Nitrite (Negative) Urine Bilirubin (Negative) Urine Urobilinogen (Negative) Ur Leukocyte Esterase (Negative) Urine WBC (Auto) (0-5) /hpf Urine RBC (Auto) (0-4) /hpf U Hyaline Cast (Auto) (0-5) /lpf U Epithel Cells (Auto) (0-5) /lpf Urine Bacteria (Auto) (Negative) POC Ur Test (NEG) Lyme Disease IgG Ab Negative (Negative) Lyme Disease IgM Ab Negative (Negative) HIV 1&2 Ab/P24 Ag 4thGn (Neg) 11/14/18 11/14/18 11/14/18 Range/Units 17:03 17:10 17:10 WBC 12.61 H (4.8-10.8) K/uL RBC 4.19 L (4.2-5.4) M/uL Hgb 13.2 (12.0-16.0) g/dL Hct 38.1 (37-47) % MCV 90.9 (80-100) fL MCH 31.5 (25-34) pg MCHC 34.6 (32-36) g/dL RDW Std Deviation 43.9 (36.4-46.3) fL RDW Coeff of Anette 13.2 (11.5-14.5) % Plt Count 189 (130-400) K/uL MPV 10.1 (7.4-10.4) fL Immature Gran % (Auto) 0.2 % Neut % (Auto) 88.4 % Lymph % (Auto) 8.1 % [place] % (Auto) 2.9 % Eos % (Auto) 0.3 % Baso % (Auto) 0.1 % Immature Gran # (Auto) 0.02 (0.00-0.02) K/uL Neut # (Auto) 11.16 H (1.4-6.5) K/uL Lymph # (Auto) 1.02 L (1.2-3.4) K/uL [place] # (Auto) 0.36 (0.11-0.59) K/uL Eos # (Auto) 0.04 (0-0.5) K/uL Baso # (Auto) 0.01 (0-0.2) K/uL ESR (0-21) mm/hr Sodium (136-145) mmol/L Potassium (3.5-5.1) mmol/L Chloride (98-107) mmol/L Carbon Dioxide (21-32) mmol/L Anion Gap (3-11) BUN (7-18) mg/dl Creatinine (0.6-1.2) mg/dl Est Cr Clr Drug Dosing ml/min Est GFR ( Amer) Est GFR (Non-Af Amer) BUN/Creatinine Ratio (10-20) Glucose (70-99) mg/dl Calcium (8.5-10.1) mg/dl Total Bilirubin (0.2-1) mg/dl AST (15-37) U/L ALT (12-78) U/L Alkaline Phosphatase (45-117) U/L C-Reactive Protein (0-0.29) mg/dl Total Protein (6.4-8.2) gm/dl Albumin (3.4-5.0) gm/dl Globulin (2.5-4.0) gm/dl Albumin/Globulin Ratio (0.9-2) Urine Color Yellow Urine Appearance Cloudy A (Clear) Urine pH 5.0 (4.5-7.5) Ur Specific [place] 1.013 (1.000-1.030) Urine Protein Negative (Negative) Urine Glucose (UA) Negative (Negative) Urine Ketones Negative (Negative) Urine Blood Negative (Negative) Urine Nitrite Negative (Negative) Urine Bilirubin Negative (Negative) Urine Urobilinogen Negative (Negative) Ur Leukocyte Esterase Negative (Negative) Urine WBC (Auto) 1-5 (0-5) /hpf Urine RBC (Auto) 0-4 (0-4) /hpf U Hyaline Cast (Auto) 0 (0-5) /lpf U Epithel Cells (Auto) 0-5 (0-5) /lpf Urine Bacteria (Auto) Negative (Negative) POC Ur Test NEG (NEG) Lyme Disease IgG Ab (Negative) Lyme Disease IgM Ab (Negative) HIV 1&2 Ab/P24 Ag 4thGn (Neg) 11/14/18 Range/Units 20:35 WBC (4.8-10.8) K/uL RBC (4.2-5.4) M/uL Hgb (12.0-16.0) g/dL Hct (37-47) % MCV (80-100) fL MCH (25-34) pg MCHC (32-36) g/dL RDW Std Deviation (36.4-46.3) fL RDW Coeff of Anette (11.5-14.5) % Plt Count (130-400) K/uL MPV (7.4-10.4) fL Immature Gran % (Auto) % Neut % (Auto) % Lymph % (Auto) % [place] % (Auto) % Eos % (Auto) % Baso % (Auto) % Immature Gran # (Auto) (0.00-0.02) K/uL Neut # (Auto) (1.4-6.5) K/uL Lymph # (Auto) (1.2-3.4) K/uL [place] # (Auto) (0.11-0.59) K/uL Eos # (Auto) (0-0.5) K/uL Baso # (Auto) (0-0.2) K/uL ESR (0-21) mm/hr Sodium (136-145) mmol/L Potassium (3.5-5.1) mmol/L Chloride (98-107) mmol/L Carbon Dioxide (21-32) mmol/L Anion Gap (3-11) BUN (7-18) mg/dl Creatinine (0.6-1.2) mg/dl Est Cr Clr Drug Dosing ml/min Est GFR ( Amer) Est GFR (Non-Af Amer) BUN/Creatinine Ratio (10-20) Glucose (70-99) mg/dl Calcium (8.5-10.1) mg/dl Total Bilirubin (0.2-1) mg/dl AST (15-37) U/L ALT (12-78) U/L Alkaline Phosphatase (45-117) U/L C-Reactive Protein (0-0.29) mg/dl Total Protein (6.4-8.2) gm/dl Albumin (3.4-5.0) gm/dl Globulin (2.5-4.0) gm/dl Albumin/Globulin Ratio (0.9-2) Urine Color Urine Appearance (Clear) Urine pH (4.5-7.5) Ur Specific [place] (1.000-1.030) Urine Protein (Negative) Urine Glucose (UA) (Negative) Urine Ketones (Negative) Urine Blood (Negative) Urine Nitrite (Negative) Urine Bilirubin (Negative) Urine Urobilinogen (Negative) Ur Leukocyte Esterase (Negative) Urine WBC (Auto) (0-5) /hpf Urine RBC (Auto) (0-4) /hpf U Hyaline Cast (Auto) (0-5) /lpf U Epithel Cells (Auto) (0-5) /lpf Urine Bacteria (Auto) (Negative) POC Ur Test (NEG) Lyme Disease IgG Ab (Negative) Lyme Disease IgM Ab (Negative) HIV 1&2 Ab/P24 Ag 4thGn Neg (Neg) Imaging Data Radiologist's Impression: Radiology results as stated below per my review and the radiologist's interpretation: XR chest 1V portable CLINICAL HISTORY: eval for pna dyspnea COMPARISON STUDY: No previous studies for comparison. FINDINGS: The bones soft tissues and hemidiaphragms are normal. The cardiomediastinal silhouette is normal. The lungs are clear. The pulmonary vasculature is normal. IMPRESSION: Negative chest. The above report was generated using voice recognition software. It may contain grammatical, syntax or spelling errors. Electronically signed by: Patricio Elizalde M.D. 11/14/2018 6:06 PM Blood Pressure Blood Pressure Findings: Low blood pressure Blood Pressure Disposition: further management by hospitalist MATT Narrative I did evaluate the patient as noted above. The patient is presenting with a rash which is itchy and painful as well as polyarthralgia. She has been treated for possible allergic reaction with Benadryl and was sent here by her PCP. She states that she has swelling to her right tongue but she does appear to have a nodule there is not generalized swelling. IV access was established. I did initially treat her with IV Benadryl and Solu-Medrol. 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 There is no evidence of acute infiltrate. I did order a urine analysis. This is unremarkable. I did order and review the patient's blood work as noted in the electronic medical record. Her white blood cell count and CRP are slightly elevated. ESR is within normal limits. Her rash seems to be most consistent with erythema multiforme. I did obtain further history from the patient and she stated that she had unprotected sex with somebody 3 weeks ago. She has no idea if the person had any history of STIs. I did perform a pelvic examination and sent GC and chlamydia cultures as well as a genital swab and testing for herpes and trichomonas. I was concerned about the possibility of disseminated gonococcus although erythema multiforme s eems more likely. She does state that years ago she was told that she had lupus but had no follow-up for this. I did treat her with ceftriaxone 2 g IV. She is also given azithromycin 1 g orally. She was also given IV morphine and Zofran for pain. Blood cultures were obtained prior to the antibiotics. I did recommend hospitalization for further care and evaluation. I did discuss the case with the hospitalist and case finisher. Impression & Plan Polyarticular arthritis, Rash, Erythema multiforme Discharge Plan Visit Data *Final* Discharge Date/Time: 11/14/18 21:35 Chief Complaint: Allergic Reaction Stated Complaint: ALLERGIC REACTION, HIVES, THROAT NUMBNESS ED Provider: Shawn Weinsetin Discharge Problem: Polyarticular arthritis, Rash, Erythema multiforme Patient Disposition: Being Evaluated by Hospitalist Discharge Instructions Interventions: ED Discharge Assessment Last Done: 11/14/18 21:35 The scribe's documentation has been prepared under my direction and personally reviewed by me in its entirety. I confirm that the note above accurately reflects all work, treatment, procedures, and medical decision making performed by me.
[2018-11-14] MEDS: DiphenhydrAMINE HCL 50 MG/ML VIAL IV SCH (23:38)
[2018-11-15] MEDS: methylPREDNISolone 40 MG in SYRINGE 0 ML IV SCH ×2 (01:35→10:06)
[2018-11-15] MEDS: DiphenhydrAMINE HCL 50 MG/ML VIAL IV SCH ×2 (05:28→10:43)
[2018-11-15] MEDS ORDERED: LEVOTHYROXINE SODIUM 88 MCG TABLET PO SCH (06:30)
[2018-11-15 07:21] LABS: Basophils # (auto) 0.01 K/uL (0-0.2); Basophils % (auto) 0.1 %; Eosinophils # (auto) 0.01 K/uL (0-0.5); Eosinophils % (auto) 0.1 %; Hematocrit (blood only) 36.8 % (37-47); Hemoglobin 12.4 g/dL (12.0-16.0); Immature Granulocytes # (auto) 0.04 K/uL (0.00-0.02); Immature Granulocytes % (auto) 0.2 %; Lymphocytes # (auto) 0.51 K/uL (1.2-3.4); Lymphocytes % (auto) 2.8 %; Mean Corpuscular Hemoglobin 30.7 pg (25-34); Mean Corpuscular Hgb Conc 33.7 g/dL (32-36); Mean Corpuscular Volume 91.1 fL (80-100); Mean Platelet Volume 10.4 fL (7.4-10.4); Monocytes # (auto) 0.41 K/uL (0.11-0.59); Monocytes % (auto) 2.3 %; Neutrophils # (auto) 17.16 K/uL (1.4-6.5); Neutrophils % (auto) 94.5 %; Platelet Count 177 K/uL (130-400); RDW Coefficient of Variation 13.2 % (11.5-14.5); RDW Standard Deviation 44.3 fL (36.4-46.3); Red Blood Count 4.04 M/uL (4.2-5.4); White Blood Count 18.14 K/uL (4.8-10.8)
[2018-11-15] MEDS: GABAPENTIN 100 MG CAP PO SCH ×2 (08:53→14:11)
[2018-11-15] MEDS ORDERED: AMLODIPINE BESYLATE 5 MG TAB PO SCH (09:00)
[2018-11-15] MEDS ORDERED: FLUOXETINE HCL 20 MG CAP PO SCH (09:00)
[2018-11-15] MEDS ORDERED: LORATADINE 10 MG TAB PO ONE (10:54)
--- NOTE | 2018-11-15 11:31 | Discharge Summary ---
Date of Service November 15, 2018 Admission HPI Per Admitting Provider 53 yo F PMHx HTN, depression, anxiety, hypothyroidism presents for pruritic rash x4 days. Reports that she was recently on a 7-day course of Macrobid for a UTI started on 11/06/18 which she completed. Began noticing some itching in her groin area first on , but since then has begun spreading to other areas of her body like her neck, back, further spreading in her groin and onto her legs and arms in a more minor way. In ED today reported that her right tongue felt a bit swollen which was what scared her into coming to the ER. Complains of some associated diffuse joint pain, swelling, and redness of her hands. Also notes that her ears feel very hot. Also reports having unprotected sex ~2 weeks ago and did not notice any lesions on her partner; is unaware of his STD status. Reports no dysuria, hematuria, vaginal discharge or pruritus. In ED here was presumptively treated for gonococcal infection with azithromycin, given Benadryl and morphine for pain and itching, and one dose methylpred. Workup started for STIs and admitting team consulted. On further interview reports no new exposures of medications other than the Macrobid. No new clothing, no new products at home or at work such as cleansers. No new foods tried. No time spent in the rojas. Reports that she vaguely recollects a physician telling her "something about Lupus". No family history of rheumatologic disease. States that she had a similar reaction to the last time she was on Macrobid, but less severe. Has had some complaints of joint pains in the past but also less severe. On interview now patient denies SOB, tongue swelling, chest pain, abdominal pain, diarrhea, constipation. Principal Diagnosis hives Discharge Exam Vitals noted and reviewed, as above GENERAL: no acute distress HEAD: normocephalic atraumatic ENT: sclerae normal, trachea midline RESP: normal work of breathing CV: regular rate and rhythm ABDOMEN: nondistended SKIN: diffuse raised wheals on trunk and neck and upper extremities. PSYCH: appropriate mood and affect Discharge Data Allergies Allergy/AdvReac Type Severity Reaction Status Date / Time blue dye Allergy Severe Facial Verified 11/14/18 17:34 swelling duloxetine Allergy Severe Facial Verified 11/14/18 17:34 swelling mirtazapine Allergy Severe Hives Verified 11/14/18 17:34 sertraline Allergy Severe Hives Verified 11/14/18 17:34 nitrofurantoin Allergy Unknown Hives Verified 02/29/16 18:30 Sulfa (Sulfonamide Allergy Unknown Hives Verified 11/14/18 17:34 Antibiotics) Consultations 11/14/18 18:40 ED Decision to Admit Stat Hospital Course (1) Hives: 53 yo F here with diffuse rash. Pt was administered IV steroids, antihistamines and monitored overnight. Remained afebrile, normotensive. Diffuse hives improved with steroids and antihistamines. Labs were unremarkable - CBC, BMP, Lyme, RPR and HIV. CRP mildly elev. STI panel pending but did recieve empiric tx for STI with Azithromycin and Ceftriaxone IV. Discussed possible etiology as medication allergy, as pt does have documented previous h/o hives on nitrofurantoin and did receive this prior to presentation. Would recommend abstaining from this medicine in the future. UA here is normal, UTI needs no further treatment at this time. Sent home with medrol dose pack and return precautions. Allergic reaction never with oropharyngeal symptoms thankfully. Chronic medical problems (arthritis, thyroid disease, HTN, depression) recommend continue home medications. Studies pending include: chlamydia, gonorrhea, HSV. Ada Shelton MD Total Time Total Time Spent Total Time Spent (In Minutes): Greater than 30 Discharge Plan Discharge Items Patient Disposition: Home - Self-Care Reason For Visit: URTICARIA Discharge Diagnosis: urticaria, adverse reaction to medication (nitrofurantoin) Condition on Discharge: Good Activity: Resume your previous activity Bathing: No limitations Non-emergency contact: Primary Care Provider Call non-emergency contact if: you have any medication questions and your symptoms worsen Follow-up/Referrals: Janelle Nguyen [Primary Care Provider] - 11/20/18 10:50 am (Please, follow up at Dr. Nguyen's office on TuesdayNovember 20 at 10:50 am. *If you need to change this appointment, call the office at [phone].) Diet: Regular Addtl Attending Provider Instructions: You were admitted due to diffuse rash - we monitored you overnight and stopped your Macrobid. You were given medicine to help decrease the swelling and itching -- you can continue to take benadryl as needed for ongoing itchiness and rash. This is most likely due to taking a medicine that you are allergic to, specifically "Macrobid - Nitrofurantoin". DO NOT take this medicine, your reaction will get worse each time as your body becomes more sensitized to it. It may take a few days for the rash to calm down. We are sending you home with a medrol dose pack (scipt to your pharmacy) to help decrease that itching, please take as prescribed. You have some blood work still pending, and these will be followed up by your primary care provider. Your UTI is cleared, so we will not be giving you any further medication at this point. If your symptoms return though, please see your PCP. Be well A [facility] Pending Studies at Discharge: Yes Studies:: STI panel Stand-Alone Forms: [facility], Work/School Release (Inpt) Medications and DC Order Prescriptions: New methylprednisolone [Medrol (Ramy)] 4 mg tablets,dose pack 4 mg PO DAILY Qty: 21 RF: 0 Continued pravastatin 40 mg tablet 40 mg PO HS RF: 0 amlodipine 5 mg tablet 5 mg PO QAM RF: 0 levothyroxine 88 mcg tablet 88 mcg PO QAM RF: 0 trazodone 100 mg tablet 100 mg PO HS RF: 0 gabapentin 100 mg capsule 200 mg PO TID RF: 0 fluoxetine 20 mg capsule 40 mg PO DAILY RF: 0 acetaminophen [Tylenol Extra Strength] 500 mg Tablet 500 mg PO DIRECTED PRN (Reason: Fever Or Pain) RF: 0 diphenhydramine HCl [Benadryl Allergy] 25 mg Tablet 25 mg PO DIRECTED PRN (Reason: Allergy Symptoms) RF: 0 Discharge Orders: Discharge Order (Routine); Ordered 11/15/18 Ordered By: Jodie Shelton Admission Data Admit Date/Time: 11/14/18 21:09 Attending Provider: Tru Hassan Admit Provider: Sade Beltran Primary Care Provider: Janelle Nguyen Other Providers: Sade Beltran ; Jessica Meade Other Interventions: Discharge Summary Assessment (RN) Last Done: 11/15/18 13:21 DC Date/Time DO NOT enter until pt leaves facility: 11/15/18 14:55 Supervising Physician Co-Signing Physician Notes I personally examined the patient and verified all ceballos points of history and exam, discussed case, and agree with decision making with Dr Meade. Ongoing itching. She pulls up her phone with a Google search for Jackson- Stevan's syndrome and asks if this is what she has. She also loosely expresses concern as to whether or not it could be related to her unprotected sex. At the same time, she does endorse a prior allergy to Macrobid. Vitals noted, in general she is itchy but no other physical distress. HEENT normal cephalic atraumatic mucous membranes moist. Breathing unlabored no acces reema muscle use good effort. No stridor. Her voice is normal. Skin shows diffuse wheals consistent with hives, and she notes there are new and different ones from even whenever Dr. Meade saw her in the morning. Hives/urticariaseems most likely to be an allergic reaction to the Macrobid. We discussed that allergic reactions often do amplify whenever the offending substances repeated. Discussed that hopefully it will start to go away over the next day but sometimes can take up to a week. Discussed if going on past that is more likely to truly be pure urticaria which can be difficult to determine root cause of. Discussed that things would be extremely unlikely to be related to unprotected sex. She is already had Zithromax and Rocephin in the ER. HIV is negative. Other labs are pending. She will follow-up with her PCP in this regard otherwise. In regards to her joint pain, she notes that she has a prior diagnosis of lupus, I discussed that this most likely is the culprit for her joint pain, follow-up with PCP. Resident Activity Tracking Resident Involvement: Resident Care Provided Care Provided: Adult Hospital Medicine
[2018-11-17 14:11] LABS: Chlamydia Trach RNA NOT DETECTED (NOT DETECTED); GC (Neis gonorrhoeae) RNA NOT DETECTED (NOT DETECTED); HSV Type 1 DNA Not Detected (Not Detected); HSV Type 1&2 DNA Source Swab; HSV Type 2 DNA Not Detected (Not Detected)
== END 2018-11-15 14:55 | disposition home or self-care (01) ==
LOC: 2W 16:24 → ED 16:24 → SUATTDRO 21:09 → 2W 21:35
DX: Z88.8 Allergy status to other drugs, medicaments and biological substances; F32.9 Major depressive disorder, single episode, unspecified; Z88.2 Allergy status to sulfonamides; Z79.899 Other long term (current) drug therapy; L50.9 Urticaria, unspecified; F41.9 Anxiety disorder, unspecified; T37.8X5A Adverse effect of other specified systemic anti-infectives and antiparasitics, initial encounter; E03.9 Hypothyroidism, unspecified; F17.210 Nicotine dependence, cigarettes, uncomplicated; I10 Essential (primary) hypertension

== ENCOUNTER 2021-08-02 20:40 | Inpatient (IN) ==
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
[2021-08-02 21:47] LABS: Basophils # (auto) 0.02 K/uL (0-0.2); Basophils % (auto) 0.3 %; Eosinophils # (auto) 0.06 K/uL (0-0.5); Eosinophils % (auto) 0.8 %; Hematocrit (blood only) 39.7 % (37-47); Hemoglobin 13.6 g/dL (12.0-16.0); Immature Granulocytes # (auto) 0.01 K/uL (0.00-0.02); Immature Granulocytes % (auto) 0.1 %; Lymphocytes # (auto) 2.35 K/uL (1.2-3.4); Lymphocytes % (auto) 32.9 %; Mean Corpuscular Hemoglobin 30.4 pg (25-34); Mean Corpuscular Hgb Conc 34.3 g/dL (32-36); Mean Corpuscular Volume 88.8 fL (80-100); Mean Platelet Volume 9.9 fL (7.4-10.4); Monocytes # (auto) 0.42 K/uL (0.11-0.59); Monocytes % (auto) 5.9 %; Neutrophils # (auto) 4.28 K/uL (1.4-6.5); Platelet Count 286 K/uL (130-400); RDW Coefficient of Variation 12.8 % (11.5-14.5); RDW Standard Deviation 41.1 fL (36.4-46.3); Red Blood Count 4.47 M/uL (4.2-5.4); White Blood Count 7.14 K/uL (4.8-10.8)
[2021-08-02 21:59] LABS: Appearance Urine Clear (Clear); Bilirubin Urine Negative (Negative); Blood Urine Negative (Negative); Color Urine Yellow; Glucose Urine UA Negative (Negative); Ketones Urine Negative (Negative); Leukocyte Esterase Urine Negative (Negative); Nitrite Urine Negative (Negative); Protein Urine Negative (Negative); Urobilinogen Urine Negative (Negative)
[2021-08-02 22:13] LABS: Alanine Aminotransferase 11 U/L (7-52); Albumin Globulin Ratio 1.6 (0.9-2); Albumin Level 4.2 gm/dl (3.4-5.0); Alkaline Phosphatase 53 U/L (34-104); Anion Gap 7 (3-11); Aspartate Aminotransferase 18 U/L (13-39); BUN Creatinine Ratio 17.1 (10-20); Bilirubin,Total 0.3 mg/dl (0.2-1.0); Blood Urea Nitrogen 14 mg/dl (6-23); Calcium 9.6 mg/dl (8.5-10.1); Carbon Dioxide 25 mmol/L (21-32); Chloride 105 mmol/L (98-107); Est GFR (African American) 93.4 ml/min; Est GFR (Non-African American) 80.6 ml/min; Globulin 2.6 gm/dl (2.5-4.0); Glucose 115 mg/dl (70-99(Fasting)); Sodium 137 mmol/L (136-145); Total Protein 6.8 gm/dl (6.0-8.3)
[2021-08-02 22:43] LABS: Acetaminophen < 3 ug/ml (10-30); Salicylate < 3.0 mg/dl (3.0-30)
[2021-08-02 22:44] LABS: Amphetamines+Metham, Urine Neg (Neg); Barbiturates, Urine Neg (Neg); Benzodiazepine, Urine Neg (Neg); Cocaine, Urine Neg (Neg); MDMA (Ecstacy), Urine Neg (Neg); Methadone, Urine Neg (Neg); Opiate, Urine Neg (Neg); Phencyclidine, Urine Neg (Neg)
[2021-08-02 22:54] LABS: Thyroid Stimulating Hormone 35.909 uIu/ml (0.300-4.500)
[2021-08-02 22:57] LABS: T4 Free Thyroxine 0.5 ng/dl (0.61-1.60)
[2021-08-03] MEDS ORDERED: LORazepam 1 MG TAB PO STA (01:04)
[2021-08-03] MEDS ORDERED: SODIUM CHLORIDE 0.65% NA SOLN 45 ML (OCEAN) PRN (02:46)
[2021-08-03] MEDS ORDERED: MAGNESIUM HYDROXIDE SUSP 30 ML UDC PO PRN (02:46)
[2021-08-03] MEDS ORDERED: BISMUTH SUBSALICYLATE LIQD 236 ML PO PRN (02:46)
[2021-08-03] MEDS ORDERED: ALUMINUM/MAGNESIUM SUSP 30 ML UDC PO PRN (02:46)
[2021-08-03] MEDS: ACETAMINOPHEN 325 MG TAB PO PRN (04:12)
--- NOTE | 2021-08-03 06:06 | Emergency Department Note ---
Impression & Plan Agitation, Hypothyroidism, Depression with suicidal ideation, Medical non- compliance ED Provider Note I received this patient in signout of the change of shift from Dr. Hsu pending 3 S. evaluation. The patient has been accepted for valuation and treatment. Patient expressed an understanding of the plan and agreed. Please refer to his note for further details of history, physical and visit. Past Med/Surg History Medical History (Updated 08/05/21 @ 16:44 by Heather Freeman MD) Anxiety Depression HLD (hyperlipidemia) Hypertension Methamphetamine use Family History Other No pertinent family history in first degree relatives Social History Smoking Status: Current every day smoker Tobacco Type: Cigarettes Cigarettes Per Day: 12 per day; Hx Alcohol Use: Yes Alcohol type: beer Hx Substance Use: No Preferred Language: [place]ralt[place] Communication Ability: Effective Pattern Scratcher Required: No Beliefs That Will Affect Care: None Current Living Situation: Alone Feels Safe at Home: Yes Assistive Devices: None and Glasses Allergies Allergies Allergy/AdvReac Type Severity Reaction Status Date / Time blue dye Allergy Severe Facial Verified 08/02/21 21:07 swelling duloxetine Allergy Severe Facial Verified 08/02/21 21:07 swelling mirtazapine Allergy Severe Hives Verified 08/02/21 21:07 sertraline Allergy Severe Hives Verified 08/02/21 21:07 nitrofurantoin Allergy Unknown Hives Verified 08/02/21 21:07 Sulfa (Sulfonamide Allergy Unknown Hives Verified 08/02/21 21:07 Antibiotics) Home Meds Home Medications Medication Instructions Recorded Confirmed acetaminophen 500 mg tablet 500 mg PO DIRECTED PRN 11/14/18 08/02/21 (Tylenol Extra Strength) pravastatin 40 mg tablet 40 mg PO HS 11/14/18 08/02/21 trazodone 100 mg tablet 150 mg PO HS 11/14/18 08/02/21 Previous Rx's Medication Instructions Recorded levothyroxine 112 mcg tablet 112 mcg PO DAILY #90 tab 04/08/21 nicotine 7 mg/24 hr daily 7 mg TRANSDERMAL QAM 7 Days ea 08/08/21 transdermal patch polyethylene glycol 3350 17 gram 17 g PO DAILY PRN 30 Days #30 ea 08/08/21 oral powder packet (Miralax) risperidone 1 mg tablet 1 mg PO HS 30 Days #60 tab 08/08/21 Results & Data (ED) Vital Signs Vital Signs - 24 hr 08/02/21 20:45 08/02/21 22:40 08/03/21 00:50 Temperature 36.7 C Temperature Source Temporal Artery Scan Pulse Rate 107 H Pulse Rate [Finger] 79 74 Respiratory Rate 20 18 17 Respiratory Effort / Characteristics Non-Labored Spontaneous Non-Labored Spontaneous Respiratory Depth Normal Normal Respiratory Pattern Regular Blood Pressure 152/107 H Blood Pressure [Right Arm] 149/99 H 137/101 H Blood Pressure Mean 122 Blood Pressure Mean [Right Arm] 115 113 Blood Pressure Position Sitting Blood Pressure Position [Right Arm] Semi-fowlers Lying Pulse Oximetry 98 97 97 Oxygen Delivery Method Room Air Room Air Room Air Sepsis New/Unexplained Change in Mental Status Yes Sepsis Action Taken by Nursing No Action Required Laboratory Data Result diagrams: 08/02/21 21:24 08/02/21 21:24 Lab Results 08/02/21 08/02/21 08/02/21 Range/Units 21:24 21:24 21:24 WBC 7.14 (4.8-10.8) K/uL RBC 4.47 (4.2-5.4) M/uL Hgb 13.6 (12.0-16.0) g/dL Hct 39.7 (37-47) % MCV 88.8 (80-100) fL MCH 30.4 (25-34) pg MCHC 34.3 (32-36) g/dL RDW Std Deviation 41.1 (36.4-46.3) fL RDW Coeff of Anette 12.8 (11.5-14.5) % Plt Count 286 (130-400) K/uL MPV 9.9 (7.4-10.4) fL Immature Gran % (Auto) 0.1 % Neut % (Auto) 60.0 % Lymph % (Auto) 32.9 % Dixon % (Auto) 5.9 % Eos % (Auto) 0.8 % Baso % (Auto) 0.3 % Neut # (Auto) 4.28 (1.4-6.5) K/uL Lymph # (Auto) 2.35 (1.2-3.4) K/uL Dixon # (Auto) 0.42 (0.11-0.59) K/uL Eos # (Auto) 0.06 (0-0.5) K/uL Baso # (Auto) 0.02 (0-0.2) K/uL Immature Gran # (Auto) 0.01 (0.00-0.02) K/uL Sodium 137 (136-145) mmol/L Potassium 4.0 (3.5-5.1) mmol/L Chloride 105 (98-107) mmol/L Carbon Dioxide 25 (21-32) mmol/L Anion Gap 7 (3-11) BUN 14 (6-23) mg/dl Creatinine 0.82 (0.6-1.2) mg/dl Est Cr Clr Drug Dosing Not Reportable Est GFR ( Amer) 93.4 ml/min Est GFR (Non-Af Amer) 80.6 ml/min BUN/Creatinine Ratio 17.1 (10-20) Glucose 115 H (70-99(Fasting)) mg/dl Calcium 9.6 (8.5-10.1) mg/dl Total Bilirubin 0.3 (0.2-1.0) mg/dl AST 18 (13-39) U/L ALT 11 (7-52) U/L Alkaline Phosphatase 53 (34-104) U/L Total Protein 6.8 (6.0-8.3) gm/dl Albumin 4.2 (3.4-5.0) gm/dl Globulin 2.6 (2.5-4.0) gm/dl Albumin/Globulin Ratio 1.6 (0.9-2) TSH 35.909 H (0.300-4.500) uIu/ml Free T4 0.50 L (0.61-1.60) ng/dl Urine Color Urine Appearance (Clear) Urine pH (4.5-7.5) Ur Specific Ringold (1.000-1.030) Urine Protein (Negative) Urine Glucose (UA) (Negative) Urine Ketones (Negative) Urine Blood (Negative) Urine Nitrite (Negative) Urine Bilirubin (Negative) Urine Urobilinogen (Negative) Ur Leukocyte Esterase (Negative) Salicylates (3.0-30) mg/dl Urine Opiates Screen (Neg) Ur Methadone, Qual (Neg) Acetaminophen (10-30) ug/ml Urine Barbiturates (Neg) Ur Phencyclidine (PCP) (Neg) U Amphetamin/Meth Scrn (Neg) MDMA (Ecstasy) Screen (Neg) U Benzodiazepines Scrn (Neg) Ur Cocaine Metabolite (Neg) U Marijuana (THC) Screen (Neg) Ethyl Alcohol mg/dL (<10.0) mg/dl SARS-CoV-2, RNA, NAAT (NEGATIVE) 08/02/21 08/02/21 08/02/21 Range/Units 21:24 21:24 21:24 WBC (4.8-10.8) K/uL RBC (4.2-5.4) M/uL Hgb (12.0-16.0) g/dL Hct (37-47) % MCV (80-100) fL MCH (25-34) pg MCHC (32-36) g/dL RDW Std Deviation (36.4-46.3) fL RDW Coeff of Anette (11.5-14.5) % Plt Count (130-400) K/uL MPV (7.4-10.4) fL Immature Gran % (Auto) % Neut % (Auto) % Lymph % (Auto) % Dixon % (Auto) % Eos % (Auto) % Baso % (Auto) % Neut # (Auto) (1.4-6.5) K/uL Lymph # (Auto) (1.2-3.4) K/uL Dixon # (Auto) (0.11-0.59) K/uL Eos # (Auto) (0-0.5) K/uL Baso # (Auto) (0-0.2) K/uL Immature Gran # (Auto) (0.00-0.02) K/uL Sodium (136-145) mmol/L Potassium (3.5-5.1) mmol/L Chloride (98-107) mmol/L Carbon Dioxide (21-32) mmol/L Anion Gap (3-11) BUN (6-23) mg/dl Creatinine (0.6-1.2) mg/dl Est Cr Clr Drug Dosing Est GFR ( Amer) ml/min Est GFR (Non-Af Amer) ml/min BUN/Creatinine Ratio (10-20) Glucose (70-99(Fasting)) mg/dl Calcium (8.5-10.1) mg/dl Total Bilirubin (0.2-1.0) mg/dl AST (13-39) U/L ALT (7-52) U/L Alkaline Phosphatase (34-104) U/L Total Protein (6.0-8.3) gm/dl Albumin (3.4-5.0) gm/dl Globulin (2.5-4.0) gm/dl Albumin/Globulin Ratio (0.9-2) TSH (0.300-4.500) uIu/ml Free T4 (0.61-1.60) ng/dl Urine Color Yellow Urine Appearance Clear (Clear) Urine pH 7.0 (4.5-7.5) Ur Specific Ringold 1.010 (1.000-1.030) Urine Protein Negative (Negative) Urine Glucose (UA) Negative (Negative) Urine Ketones Negative (Negative) Urine Blood Negative (Negative) Urine Nitrite Negative (Negative) Urine Bilirubin Negative (Negative) Urine Urobilinogen Negative (Negative) Ur Leukocyte Esterase Negative (Negative) Salicylates < 3.0 L (3.0-30) mg/dl Urine Opiates Screen (Neg) Ur Methadone, Qual (Neg) Acetaminophen < 3 L (10-30) ug/ml Urine Barbiturates (Neg) Ur Phencyclidine (PCP) (Neg) U Amphetamin/Meth Scrn (Neg) MDMA (Ecstasy) Screen (Neg) U Benzodiazepines Scrn (Neg) Ur Cocaine Metabolite (Neg) U Marijuana (THC) Screen (Neg) Ethyl Alcohol mg/dL < 10.0 (<10.0) mg/dl SARS-CoV-2, RNA, NAAT (NEGATIVE) 08/02/21 08/02/21 Range/Units 21:24 23:30 WBC (4.8-10.8) K/uL RBC (4.2-5.4) M/uL Hgb (12.0-16.0) g/dL Hct (37-47) % MCV (80-100) fL MCH (25-34) pg MCHC (32-36) g/dL RDW Std Deviation (36.4-46.3) fL RDW Coeff of Anette (11.5-14.5) % Plt Count (130-400) K/uL MPV (7.4-10.4) fL Immature Gran % (Auto) % Neut % (Auto) % Lymph % (Auto) % Dixon % (Auto) % Eos % (Auto) % Baso % (Auto) % Neut # (Auto) (1.4-6.5) K/uL Lymph # (Auto) (1.2-3.4) K/uL Dixon # (Auto) (0.11-0.59) K/uL Eos # (Auto) (0-0.5) K/uL Baso # (Auto) (0-0.2) K/uL Immature Gran # (Auto) (0.00-0.02) K/uL Sodium (136-145) mmol/L Potassium (3.5-5.1) mmol/L Chloride (98-107) mmol/L Carbon Dioxide (21-32) mmol/L Anion Gap (3-11) BUN (6-23) mg/dl Creatinine (0.6-1.2) mg/dl Est Cr Clr Drug Dosing Est GFR ( Amer) ml/min Est GFR (Non-Af Amer) ml/min BUN/Creatinine Ratio (10-20) Glucose (70-99(Fasting)) mg/dl Calcium (8.5-10.1) mg/dl Total Bilirubin (0.2-1.0) mg/dl AST (13-39) U/L ALT (7-52) U/L Alkaline Phosphatase (34-104) U/L Total Protein (6.0-8.3) gm/dl Albumin (3.4-5.0) gm/dl Globulin (2.5-4.0) gm/dl Albumin/Globulin Ratio (0.9-2) TSH (0.300-4.500) uIu/ml Free T4 (0.61-1.60) ng/dl Urine Color Urine Appearance (Clear) Urine pH (4.5-7.5) Ur Specific Ringold (1.000-1.030) Urine Protein (Negative) Urine Glucose (UA) (Negative) Urine Ketones (Negative) Urine Blood (Negative) Urine Nitrite (Negative) Urine Bilirubin (Negative) Urine Urobilinogen (Negative) Ur Leukocyte Esterase (Negative) Salicylates (3.0-30) mg/dl Urine Opiates Screen Neg (Neg) Ur Methadone, Qual Neg (Neg) Acetaminophen (10-30) ug/ml Urine Barbiturates Neg (Neg) Ur Phencyclidine (PCP) Neg (Neg) U Amphetamin/Meth Scrn Neg (Neg) MDMA (Ecstasy) Screen Neg (Neg) U Benzodiazepines Scrn Neg (Neg) Ur Cocaine Metabolite Neg (Neg) U Marijuana (THC) Screen Neg (Neg) Ethyl Alcohol mg/dL (<10.0) mg/dl SARS-CoV-2, RNA, NAAT NEGATIVE (NEGATIVE) Administered Medications Discontinued Medications Acetaminophen (Acetaminophen 325 Mg Tab) 650 mg PO Q4H PRN PRN Reason: Headache or Minor Fever Stop: 09/02/21 02:45 Last Admin: 08/08/21 09:06 Dose: 650 mg Documented by: [id number] Admin: 08/03/21 04:12 Dose: 650 mg Documented by: [id number] Fluoxetine HCl (Fluox[facility] Hcl 20 Mg Cap) [facility] [place] Stop: 09/05/21 08:59 Last Admin: 08/08/21 08:33 Dose: 20 mg Documented by: [id number] Admin: 08/07/21 08:37 Dose: 20 mg Documented by: [id number] Admin: 08/06/21 08:42 Dose: 20 mg Documented by: [id number] Levothyroxine Sodium (Levothyroxine Sodium 112 Mcg Tablet) [facility] Stop: 09/03/21 07:59 Last Admin: 08/08/21 08:33 Dose: 112 mcg Documented by: [id number] Admin: 08/07/21 08:37 Dose: 112 mcg Documented by: [id number] Admin: 08/06/21 08:34 Dose: 112 mcg Documented by: [id number] Admin: 08/05/21 08:56 Dose: 112 mcg Documented by: [id number] Admin: 08/04/21 09:44 Dose: 112 mcg Documented by: [id number] Lorazepam (Lorazepam 1 Mg Tab) 1 mg PO NOW STA Stop: 08/03/21 01:05 Last Admin: 08/03/21 01:10 Dose: 1 mg Documented by: [id number] Magnesium Hydroxide (Magnesium Hydroxide Susp 30 Ml Udc) 30 ml PO DAILY PRN PRN Reason: Constipation Stop: 09/02/21 02:45 Last Admin: 08/06/21 08:50 Dose: 30 ml Documented by: [id number] Miscellaneous (Remove Nicoderm Patch) 1 ea N/A DAILY@[id number] [facility] Stop: 09/03/21 08:58 Last Admin: 08/08/21 08:36 Dose: Not Given Documented by: [id number] Admin: 08/07/21 08:37 Dose: 1 ea Documented by: [id number] Admin: 08/06/21 08:47 Dose: Not Given Documented by: [id number] Admin: 08/05/21 08:56 Dose: 1 ea Documented by: [id number] Admin: 08/04/21 09:45 Dose: 1 ea Documented by: [id number] Nicotine (Nicotine 14 Mg/24 Hr Patch) 14 mg TD QAM [facility] Stop: 09/02/21 12:59 Last Admin: 08/08/21 08:35 Dose: 14 mg Documented by: [id number] Admin: 08/07/21 08:37 Dose: 14 mg Documented by: [id number] Admin: 08/06/21 08:45 Dose: 14 mg Documented by: [id number] Admin: 08/05/21 08:56 Dose: 14 mg Documented by: [id number] Admin: 08/04/21 09:43 Dose: 14 mg Documented by: [id number] Admin: 08/03/21 13:20 Dose: 14 mg Documented by: [id number] Olanzapine (Olanzapine 5 Mg Tablet) 5 mg PO BID PRN PRN Reason: Agitation Stop: 09/02/21 09:14 Last Admin: 08/04/21 13:43 Dose: 5 mg Documented by: [id number] Admin: 08/03/21 16:47 Dose: 5 mg Documented by: [id number] Polyethylene Glycol (Polyethylene (Miralax) 17 Gm Pack) 17 gm PO DAILY PRN PRN Reason: Constipation Stop: 09/05/21 13:34 Last Admin: 08/06/21 13:57 Dose: 17 gm Documented by: [id number] Polyethylene Glycol (Polyethylene (Miralax) 17 Gm Pack) 17 gm PO DAILY [facility] Stop: 09/06/21 16:59 Last Admin: 08/08/21 08:32 Dose: 17 gm Documented by: [id number] Admin: 08/07/21 18:04 Dose: 17 gm Documented by: [id number] Pravastatin Sodium (Pravastatin Sod 40 Mg Tab) 40 mg PO HS [facility] Stop: 09/03/21 21:59 Last Admin: 08/07/21 20:54 Dose: 40 mg Documented by: [id number] Admin: 08/06/21 20:37 Dose: 40 mg Documented by: [id number] Admin: 08/05/21 20:35 Dose: 40 mg Documented by: [id number] Admin: 08/04/21 20:46 Dose: 40 mg Documented by: [id number] Risperidone (Risperidone 0.5 Mg Tablet) 0.5 mg PO BID [facility] Stop: 09/02/21 20:59 Last Admin: 08/04/21 09:45 Dose: 0.5 mg Documented by: [id number] Admin: 08/03/21 20:57 Dose: 0.5 mg Documented by: [id number] Risperidone (Risperidone 0.5 Mg Tablet) 0.5 mg PO BID PRN PRN Reason: Anxiety/Agitation Stop: 09/02/21 20:59 Last Admin: 08/07/21 22:34 Dose: 0.5 mg Documented by: [id number] Admin: 08/07/21 10:15 Dose: 0.5 mg Documented by: [id number] Admin: 08/06/21 13:14 Dose: 0.5 mg Documented by: [id number] Admin: 08/05/21 14:58 Dose: 0.5 mg Documented by: [id number] Risperidone (Risperidone 0.5 Mg Tablet) 0.5 mg PO QAM [facility] Stop: 09/04/21 08:59 Last Admin: 08/08/21 08:34 Dose: 0.5 mg Documented by: [id number] Admin: 08/07/21 08:37 Dose: 0.5 mg Documented by: [id number] Admin: 08/06/21 08:48 Dose: 0.5 mg Documented by: [id number] Admin: 08/05/21 08:56 Dose: 0.5 mg Documented by: [id number] Risperidone (Risperidone 1 Mg Tablet) 1 mg PO HS [facility] Stop: 09/03/21 21:59 Last Admin: 08/07/21 20:54 Dose: 1 mg Documented by: [id number] Admin: 08/06/21 20:37 Dose: 1 mg Documented by: [id number] Admin: 08/05/21 20:35 Dose: 1 mg Documented by: [id number] Admin: 08/04/21 20:46 Dose: 1 mg Documented by: [id number] Risperidone (Risperidone 0.5 Mg Tablet) 0.5 mg PO DAILYBL [facility] Stop: 09/06/21 11:59 Last Admin: 08/08/21 11:59 Dose: 0.5 mg Documented by: [id number] Admin: 08/07/21 12:33 Dose: 0.5 mg Documented by: [id number] Sennosides (Senna 8.6 Mg Tab) 8.6 mg PO BID [facility] Stop: 09/05/21 20:59 Last Admin: 08/07/21 08:37 Dose: 8.6 mg Documented by: [id number] Admin: 08/06/21 20:37 Dose: 8.6 mg Documented by: [id number] Sennosides (Senna 8.6 Mg Tab) 17.2 mg PO BID [facility] Stop: 09/06/21 20:59 Last Admin: 08/08/21 08:33 Dose: 17.2 mg Documented by: [id number] Admin: 08/07/21 20:54 Dose: 17.2 mg Documented by: [id number] Zinc Acetate/Diphenhydramine (Diphenhydramine 2%/Zinc 0.1% Cream 28gm Tube) 1 appln EXT DAILY [facility] Stop: 09/03/21 17:59 Last Admin: 08/08/21 08:36 Dose: 1 appln Documented by: [id number] Admin: 08/07/21 08:37 Dose: 1 appln Documented by: [id number] Admin: 08/06/21 08:42 Dose: 1 appln Documented by: [id number] Admin: 08/05/21 08:56 Dose: 1 appln Documented by: [id number] Admin: 08/04/21 18:13 Dose: 1 appln Documented by: [id number] Discharge Plan Visit Data Chief Complaint: Mental Health Evaluation Stated Complaint: IRRITABLE, HASNT BEEN TAKING MEDS ED Provider: Rosina Butler Discharge Problem: Agitation, Hypothyroidism, Depression with suicidal ideation, Medical non- compliance Patient Disposition: Admitted As Inpatient Discharge Instructions Interventions: ED Discharge Assessment Last Done: 08/03/21 03:25 Discharge Problem: Hypothyroidism Qualifiers: Hypothyroidism type: unspecified Qualified Code(s): E03.9 - Hypothyroidism, unspecified
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
[2021-08-03] MEDS: NICOTINE 14 MG/24 HR PATCH TD SCH (13:20)
[2021-08-03] MEDS: OLANZapine 5 MG TABLET PO PRN (16:47)
[2021-08-03] MEDS: risperiDONE 0.5 MG TABLET PO SCH (20:57)
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
[2021-08-04] MEDS: NICOTINE 14 MG/24 HR PATCH TD SCH (09:43)
[2021-08-04] MEDS: LEVOTHYROXINE SODIUM 112 MCG TABLET PO SCH (09:44)
[2021-08-04] MEDS: risperiDONE 0.5 MG TABLET PO SCH (09:45)
[2021-08-04] MEDS: OLANZapine 5 MG TABLET PO PRN (13:43)
[2021-08-04] MEDS: risperiDONE 1 MG TABLET PO SCH (20:46)
[2021-08-04] MEDS: PRAVASTATIN SOD 40 MG TAB PO SCH (20:46)
[2021-08-05] MEDS: NICOTINE 14 MG/24 HR PATCH TD SCH (08:56)
[2021-08-05] MEDS: risperiDONE 0.5 MG TABLET PO SCH (08:56)
[2021-08-05] MEDS: LEVOTHYROXINE SODIUM 112 MCG TABLET PO SCH (08:56)
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
[2021-08-05] MEDS: risperiDONE 0.5 MG TABLET PO PRN (14:58)
[2021-08-05] MEDS: PRAVASTATIN SOD 40 MG TAB PO SCH (20:35)
[2021-08-05] MEDS: risperiDONE 1 MG TABLET PO SCH (20:35)
[2021-08-06] MEDS: LEVOTHYROXINE SODIUM 112 MCG TABLET PO SCH (08:34)
[2021-08-06] MEDS: FLUoxetine HCL 20 MG CAP PO SCH (08:42)
[2021-08-06] MEDS: NICOTINE 14 MG/24 HR PATCH TD SCH (08:45)
[2021-08-06] MEDS: risperiDONE 0.5 MG TABLET PO SCH (08:48)
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
[2021-08-06] MEDS: risperiDONE 0.5 MG TABLET PO PRN (13:14)
[2021-08-06] MEDS ORDERED: POLYETHYLENE (MIRALAX) 17 GM PACK PO PRN (13:35)
[2021-08-06] MEDS: PRAVASTATIN SOD 40 MG TAB PO SCH (20:37)
[2021-08-06] MEDS: SENNA 8.6 MG TAB PO SCH (20:37)
[2021-08-06] MEDS: risperiDONE 1 MG TABLET PO SCH (20:37)
[2021-08-07] MEDS: LEVOTHYROXINE SODIUM 112 MCG TABLET PO SCH (08:37)
[2021-08-07] MEDS: risperiDONE 0.5 MG TABLET PO SCH ×2 (08:37→12:33)
[2021-08-07] MEDS: SENNA 8.6 MG TAB PO SCH ×2 (08:37→20:54)
[2021-08-07] MEDS: NICOTINE 14 MG/24 HR PATCH TD SCH (08:37)
[2021-08-07] MEDS: FLUoxetine HCL 20 MG CAP PO SCH (08:37)
[2021-08-07] MEDS: risperiDONE 0.5 MG TABLET PO PRN ×2 (10:15→22:34)
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
[2021-08-07] MEDS: POLYETHYLENE (MIRALAX) 17 GM PACK PO SCH (18:04)
[2021-08-07] MEDS: risperiDONE 1 MG TABLET PO SCH (20:54)
[2021-08-07] MEDS: PRAVASTATIN SOD 40 MG TAB PO SCH (20:54)
[2021-08-08] MEDS: POLYETHYLENE (MIRALAX) 17 GM PACK PO SCH (08:32)
[2021-08-08] MEDS: LEVOTHYROXINE SODIUM 112 MCG TABLET PO SCH (08:33)
[2021-08-08] MEDS: SENNA 8.6 MG TAB PO SCH (08:33)
[2021-08-08] MEDS: FLUoxetine HCL 20 MG CAP PO SCH (08:33)
[2021-08-08] MEDS: risperiDONE 0.5 MG TABLET PO SCH ×2 (08:34→11:59)
[2021-08-08] MEDS: NICOTINE 14 MG/24 HR PATCH TD SCH (08:35)
[2021-08-08] MEDS: ACETAMINOPHEN 325 MG TAB PO PRN (09:06)
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
== END 2021-08-08 14:00 | disposition home or self-care (01) | DRG 897 ==
LOC: ED 20:40 → SUATTDRO 08-03 02:49 → 3S 08-03 02:49

== ENCOUNTER 2021-09-30 12:31 | Inpatient (IN) ==
--- NOTE | 2021-09-30 12:54 | Emergency Department Note ---
Impression & Plan Anxiety, Depression with suicidal ideation, Tobacco use ED Provider Note NAME: CEDRIC MYERS AGE: 56 SEX: F : 1965 ARRIVES VIA: Walk-In INFORMANT: Patient, ED PROVIDER(S): Parth Thomas MD Chief Complaint: Anxiety, SI HPI: Patient presents due to concern for increasing anxiety. The patient was seen by Dr. Milner earlier today and referred here for further evaluation treatment. The patient does not feel like she is getting better. They have been trying to wean her Klonopin and she did take half dose of this earlier today which mildly improved her symptoms. The patient does complain of SI with generalized thoughts of self-harm but does not have specific plan. The patient does have a prior history of self-harm back in June where she tried to cut into her arm with a razor blade. Patient states that she has felt so unwell that she is resorted to taking meth 1 time. Patient denies any tobacco alcohol or drug use. The patient states that she has no HI but has had auditory hallucinations does not recognize the voices but states that the voices will tell her to go to sleep and not wake up. Patient has had inpatient treatment in the past and thinks that she may benefit from inpatient treatment again. The patient is not employed and denies any access to guns or weapons. ROS: See HPI for pertinent positives and negatives. A total of 10 systems were reviewed and otherwise negative. Past medical history: See below Surgical history: See below Social history: See below Physical Exam: GENERAL: Non-toxic. Glasses, anxious in appearance EYE EXAM: Normal conjunctiva. PERRL, no anisocoria and EOM's grossly intact w/o pain. NECK: Supple, no nuchal rigidity, no adenopathy, non-tender. No signs of meningismus. FROM of the neck with good chin to chest and neck extension. No stridor. LUNGS: Clear to auscultation. Normal chest wall mechanics. HEART: NSR, no MRG. ABDOMEN: Abdomen soft, non-tender, normo-active bowel sounds, no masses, no rebound or guarding. BACK: No CVA TTP. SKIN: No rashes and no bruising. UPPER EXTREMITIES: Upper extremities are grossly normal. LOWER EXTREMITIES: Grossly normal, no edema. NEURO EXAM: A&O x3, cranial nerves II-XII grossly intact, normal speech, moves all 4 extremities. Psych: Positive SI, negative HI, anxious, positive auditory hallucinations, negative visual hallucinations Differential diagnoses: Mood disorder, infection, hypoglycemia, electrolyte abnormalities, cardiac sources, intracerebral event, toxicologic, trauma, neurologic, as well as other pathologies. Course: Patient was seen and evaluated the bedside. Full history physical exam was performed. MDM: Patient was seen due to concern for mental wellness issues as the patient is anxious with thoughts of self-harm and does have associated auditory hallucinations. Blood work was obtained was the medically cleared seen and evaluated by the casework specialist and inpatient referral was made. Patient was signed out to Dr. Eldridge pending reevaluation and disposition. 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: No Beliefs That Will Affect Care: None Current Living Situation: Alone Feels Safe at Home: Yes Assistive Devices: None and Glasses Allergies Allergies Allergy/AdvReac Type Severity Reaction Status Date / Time blue dye Allergy Severe Facial Verified 08/02/21 21:07 swelling duloxetine Allergy Severe Facial Verified 08/02/21 21:07 swelling mirtazapine Allergy Severe Hives Verified 08/02/21 21:07 sertraline Allergy Severe Hives Verified 08/02/21 21:07 nitrofurantoin Allergy Unknown Hives Verified 08/02/21 21:07 Sulfa (Sulfonamide Allergy Unknown Hives Verified 08/02/21 21:07 Antibiotics) Home Meds Home Medications Medication Instructions Recorded Confirmed pravastatin 40 mg tablet 40 mg PO DAILY 11/14/18 09/30/21 clonazepam 0.5 mg tablet 0.5 mg PO BID 09/30/21 10/01/21 fluoxetine 20 mg capsule 40 mg PO DAILY 09/30/21 09/30/21 risperidone 0.5 mg tablet 0.5 mg PO BID PRN Anxiety 10/01/21 10/01/21 risperidone 0.5 mg tablet 0.5 mg PO QAM 10/01/21 10/01/21 risperidone 1 mg tablet 1 mg PO HS 10/01/21 10/01/21 trazodone 150 mg tablet 75 mg PO HS 10/01/21 10/01/21 Previous Rx's Medication Instructions Recorded levothyroxine 112 mcg tablet 112 mcg PO DAILY #90 tabs 04/08/21 Results & Data (ED) Vital Signs Vital Signs - 24 hr 09/30/21 12:39 09/30/21 15:35 Temperature 37 C Temperature Source Temporal Artery Scan Pulse Rate 113 H Pulse Rate [Right Finger] 88 Pulse Rhythm [Right Finger] Regular Pulse Strength [Right Finger] Normal Respiratory Rate 16 18 Respiratory Effort / Characteristics Non-Labored Non-Labored Respiratory Depth Normal Normal Respiratory Pattern Regular Blood Pressure 126/76 Blood Pressure [Right Arm] 145/92 H Blood Pressure Mean 92 Blood Pressure Mean [Right Arm] 109 Blood Pressure Position [Right Arm] Sitting Pulse Oximetry 98 99 Oxygen Delivery Method Room Air Room Air Sepsis Recent Fever Within 48 Hours No Sepsis New/Unexplained Change in Mental Status No Sepsis Action Taken by Nursing No Action Required Home Medications Current Medication List: was personally reviewed by me Laboratory Data Attestation: I reviewed the patient's lab results. Result diagrams: 09/30/21 12:55 09/30/21 12:55 Lab Results 09/30/21 09/30/21 09/30/21 Range/Units 12:55 12:55 12:55 WBC 8.14 (4.8-10.8) K/ul RBC 4.41 (3.93-5.22) M/uL Hgb 13.4 (12.0-16.0) g/dl Hct 40.5 (34.1-44.9) % MCV 91.8 (80.0-100.0) fL MCH 30.4 (25.0-34.0) pg MCHC 33.1 (32.0-36.0) g/dL RDW Std Deviation 43.1 (36.4-46.3) fL RDW Coeff of Anette 12.7 (11.5-14.5) % Plt Count 208 (130-400) K/uL MPV 10.0 (9.4-12.3) fL Immature Gran % (Auto) 0.4 % Neut % (Auto) 65.3 % Lymph % (Auto) 25.8 % [place] % (Auto) 7.9 % Eos % (Auto) 0.2 % Baso % (Auto) 0.4 % Neut # (Auto) 5.32 (1.4-6.5) K/uL Lymph # (Auto) 2.10 (1.2-3.4) K/uL [place] # (Auto) 0.64 (0.24-0.82) K/uL Eos # (Auto) 0.02 (0-0.50) K/uL Baso # (Auto) 0.03 (0-0.2) K/uL Immature Gran # (Auto) 0.03 H (0.00-0.02) K/uL Sodium 135 L (136-145) mmol/L Potassium 4.3 (3.5-5.1) mmol/L Chloride 101 (98-107) mmol/L Carbon Dioxide 26 (21-32) mmol/L Anion Gap 8 (3-11) BUN 7 (6-23) mg/dl Creatinine 0.73 (0.6-1.2) mg/dl Est Cr Clr Drug Dosing 73.7 ml/min Est GFR ( Amer) 107.5 ml/min Est GFR (Non-Af Amer) 92.7 ml/min BUN/Creatinine Ratio 9.6 L (10-20) Glucose 101 H (70-99(Fasting)) mg/dl Calcium 10.0 (8.5-10.1) mg/dl Total Bilirubin 0.4 (0.2-1.0) mg/dl AST 15 (13-39) U/L ALT 8 (7-52) U/L Alkaline Phosphatase 54 (34-104) U/L Total Protein 7.2 (6.0-8.3) gm/dl Albumin 4.6 (3.4-5.0) gm/dl Globulin 2.6 (2.5-4.0) gm/dl Albumin/Globulin Ratio 1.8 (0.9-2) TSH 2.491 (0.300-4.500) uIu/ml Urine Color Urine Appearance (Clear) Urine pH (4.5-7.5) Ur Specific Bode (1.000-1.030) Urine Protein (Negative) Urine Glucose (UA) (Negative) Urine Ketones (Negative) Urine Blood (Negative) Urine Nitrite (Negative) Urine Bilirubin (Negative) Urine Urobilinogen (Negative) Ur Leukocyte Esterase (Negative) Salicylates (3.0-30) mg/dl Urine Opiates Screen (Neg) Ur Methadone, Qual (Neg) Acetaminophen (10-30) ug/ml Urine Barbiturates (Neg) Ur Phencyclidine (PCP) (Neg) U Amphetamin/Meth Scrn (Neg) MDMA (Ecstasy) Screen (Neg) U Benzodiazepines Scrn (Neg) Ur Cocaine Metabolite (Neg) U Marijuana (THC) Screen (Neg) Ethyl Alcohol mg/dL (<10.0) mg/dl SARS-CoV-2, RNA, NAAT (NEGATIVE) 09/30/21 09/30/21 09/30/21 Range/Units 12:55 12:55 12:55 WBC (4.8-10.8) K/ul RBC (3.93-5.22) M/uL Hgb (12.0-16.0) g/dl Hct (34.1-44.9) % MCV (80.0-100.0) fL MCH (25.0-34.0) pg MCHC (32.0-36.0) g/dL RDW Std Deviation (36.4-46.3) fL RDW Coeff of Anette (11.5-14.5) % Plt Count (130-400) K/uL MPV (9.4-12.3) fL Immature Gran % (Auto) % Neut % (Auto) % Lymph % (Auto) % [place] % (Auto) % Eos % (Auto) % Baso % (Auto) % Neut # (Auto) (1.4-6.5) K/uL Lymph # (Auto) (1.2-3.4) K/uL [place] # (Auto) (0.24-0.82) K/uL Eos # (Auto) (0-0.50) K/uL Baso # (Auto) (0-0.2) K/uL Immature Gran # (Auto) (0.00-0.02) K/uL Sodium (136-145) mmol/L Potassium (3.5-5.1) mmol/L Chloride (98-107) mmol/L Carbon Dioxide (21-32) mmol/L Anion Gap (3-11) BUN (6-23) mg/dl Creatinine (0.6-1.2) mg/dl Est Cr Clr Drug Dosing ml/min Est GFR ( Amer) ml/min Est GFR (Non-Af Amer) ml/min BUN/Creatinine Ratio (10-20) Glucose (70-99(Fasting)) mg/dl Calcium (8.5-10.1) mg/dl Total Bilirubin (0.2-1.0) mg/dl AST (13-39) U/L ALT (7-52) U/L Alkaline Phosphatase (34-104) U/L Total Protein (6.0-8.3) gm/dl Albumin (3.4-5.0) gm/dl Globulin (2.5-4.0) gm/dl Albumin/Globulin Ratio (0.9-2) TSH (0.300-4.500) uIu/ml Urine Color Yellow Urine Appearance Clear (Clear) Urine pH 6.5 (4.5-7.5) Ur Specific Bode 1.005 (1.000-1.030) Urine Protein Negative (Negative) Urine Glucose (UA) Negative (Negative) Urine Ketones Negative (Negative) Urine Blood Negative (Negative) Urine Nitrite Negative (Negative) Urine Bilirubin Negative (Negative) Urine Urobilinogen Negative (Negative) Ur Leukocyte Esterase Negative (Negative) Salicylates < 3.0 L (3.0-30) mg/dl Urine Opiates Screen (Neg) Ur Methadone, Qual (Neg) Acetaminophen < 3 L (10-30) ug/ml Urine Barbiturates (Neg) Ur Phencyclidine (PCP) (Neg) U Amphetamin/Meth Scrn (Neg) MDMA (Ecstasy) Screen (Neg) U Benzodiazepines Scrn (Neg) Ur Cocaine Metabolite (Neg) U Marijuana (THC) Screen (Neg) Ethyl Alcohol mg/dL < 10.0 (<10.0) mg/dl SARS-CoV-2, RNA, NAAT (NEGATIVE) 09/30/21 09/30/21 Range/Units 12:55 13:29 WBC (4.8-10.8) K/ul RBC (3.93-5.22) M/uL Hgb (12.0-16.0) g/dl Hct (34.1-44.9) % MCV (80.0-100.0) fL MCH (25.0-34.0) pg MCHC (32.0-36.0) g/dL RDW Std Deviation (36.4-46.3) fL RDW Coeff of Anette (11.5-14.5) % Plt Count (130-400) K/uL MPV (9.4-12.3) fL Immature Gran % (Auto) % Neut % (Auto) % Lymph % (Auto) % [place] % (Auto) % Eos % (Auto) % Baso % (Auto) % Neut # (Auto) (1.4-6.5) K/uL Lymph # (Auto) (1.2-3.4) K/uL [place] # (Auto) (0.24-0.82) K/uL Eos # (Auto) (0-0.50) K/uL Baso # (Auto) (0-0.2) K/uL Immature Gran # (Auto) (0.00-0.02) K/uL Sodium (136-145) mmol/L Potassium (3.5-5.1) mmol/L Chloride (98-107) mmol/L Carbon Dioxide (21-32) mmol/L Anion Gap (3-11) BUN (6-23) mg/dl Creatinine (0.6-1.2) mg/dl Est Cr Clr Drug Dosing ml/min Est GFR ( Amer) ml/min Est GFR (Non-Af Amer) ml/min BUN/Creatinine Ratio (10-20) Glucose (70-99(Fasting)) mg/dl Calcium (8.5-10.1) mg/dl Total Bilirubin (0.2-1.0) mg/dl AST (13-39) U/L ALT (7-52) U/L Alkaline Phosphatase (34-104) U/L Total Protein (6.0-8.3) gm/dl Albumin (3.4-5.0) gm/dl Globulin (2.5-4.0) gm/dl Albumin/Globulin Ratio (0.9-2) TSH (0.300-4.500) uIu/ml Urine Color Urine Appearance (Clear) Urine pH (4.5-7.5) Ur Specific Bode (1.000-1.030) Urine Protein (Negative) Urine Glucose (UA) (Negative) Urine Ketones (Negative) Urine Blood (Negative) Urine Nitrite (Negative) Urine Bilirubin (Negative) Urine Urobilinogen (Negative) Ur Leukocyte Esterase (Negative) Salicylates (3.0-30) mg/dl Urine Opiates Screen Neg (Neg) Ur Methadone, Qual Neg (Neg) Acetaminophen (10-30) ug/ml Urine Barbiturates Neg (Neg) Ur Phencyclidine (PCP) Neg (Neg) U Amphetamin/Meth Scrn Neg (Neg) MDMA (Ecstasy) Screen Neg (Neg) U Benzodiazepines Scrn Neg (Neg) Ur Cocaine Metabolite Neg (Neg) U Marijuana (THC) Screen Neg (Neg) Ethyl Alcohol mg/dL (<10.0) mg/dl SARS-CoV-2, RNA, NAAT NEGATIVE (NEGATIVE) Administered Medications Benztropine Mesylate (Benztropine Mesylate 1 Mg Tab) 1 mg PO Q6 PRN PRN Reason: dystonia/thick tongue Stop: 10/30/21 21:01 Last Admin: 09/30/21 21:33 Dose: 1 mg Documented By: ACOSTA Clonazepam (Clonazepam 0.25 Mg Tab) 0.25 mg PO BID PRN PRN Reason: Anxiety Stop: 10/30/21 21:01 Last Admin: 10/01/21 09:26 Dose: 0.25 mg Documented By: SHAUN Fluoxetine HCl (Fluoxetine Hcl 20 Mg Cap) 40 mg PO QAM [facility] Stop: 10/31/21 08:59 Last Admin: 10/01/21 08:43 Dose: 40 mg Documented By: SHAUN Levothyroxine Sodium (Levothyroxine Sodium 112 Mcg Tablet) 112 mcg PO DAILYBB [facility] Stop: 10/31/21 06:29 Last Admin: 10/01/21 08:43 Dose: 112 mcg Documented By: SHAUN Miscellaneous (Remove Nicoderm Patch) 1 each N/A DAILY@0859 [facility] Stop: 10/31/21 08:58 Last Admin: 10/01/21 08:46 Dose: 1 each Documented By: SHAUN Nicotine (Nicotine 14 Mg/24 Hr Patch) 14 mg TD QAM [facility] Stop: 10/31/21 08:59 Last Admin: 10/01/21 08:42 Dose: 14 mg Documented By: VLN Discontinued Medications Lorazepam (Lorazepam 1 Mg Tab) 1 mg PO NOW STA Stop: 09/30/21 13:20 Last Admin: 09/30/21 13:27 Dose: 1 mg Documented By: CELIA Nicotine (Nicotine 14 Mg/24 Hr Patch) 14 mg TD QAM [facility] Stop: 10/30/21 14:59 Last Admin: 09/30/21 15:25 Dose: 14 mg Documented By: ML Risperidone (Risperidone 1 Mg Tablet) 1 mg PO ONCE PRN PRN Reason: Anxiety Stop: 10/30/21 17:29 Last Admin: 09/30/21 18:14 Dose: 1 mg Documented By: ML Trazodone HCl (Trazodone Hcl 100 Mg Tab) 150 mg PO HS [facility] Stop: 10/30/21 20:59 Last Admin: 09/30/21 22:50 Dose: 150 mg Documented By: BNT Discharge Plan Visit Data Chief Complaint: Mental Health Evaluation Stated Complaint: REF BY , ANXIETY ED Provider: Parth Thomas Discharge Problem: Anxiety, Depression with suicidal ideation, Tobacco use Patient Disposition: Admitted As Inpatient Condition: Good Discharge Instructions Interventions: ED Discharge Assessment Last Done: 09/30/21 22:49
[2021-09-30] MEDS ORDERED: LORazepam 1 MG TAB PO STA (13:19)
[2021-09-30 13:30] LABS: Appearance Urine Clear (Clear); Bilirubin Urine Negative (Negative); Blood Urine Negative (Negative); Color Urine Yellow; Glucose Urine UA Negative (Negative); Ketones Urine Negative (Negative); Leukocyte Esterase Urine Negative (Negative); Nitrite Urine Negative (Negative); Protein Urine Negative (Negative); Specific Gravity Urine 1.005 (1.000-1.030); Urobilinogen Urine Negative (Negative); pH Urine 6.5 (4.5-7.5)
[2021-09-30 13:38] LABS: Basophils # (auto) 0.03 K/uL (0-0.2); Basophils % (auto) 0.4 %; Eosinophils # (auto) 0.02 K/uL (0-0.50); Eosinophils % (auto) 0.2 %; Hematocrit (blood only) 40.5 % (34.1-44.9); Hemoglobin 13.4 g/dl (12.0-16.0); Immature Granulocytes # (auto) 0.03 K/uL (0.00-0.02); Immature Granulocytes % (auto) 0.4 %; Lymphocytes % (auto) 25.8 %; Mean Corpuscular Hemoglobin 30.4 pg (25.0-34.0); Mean Corpuscular Hgb Conc 33.1 g/dL (32.0-36.0); Mean Corpuscular Volume 91.8 fL (80.0-100.0); Monocytes # (auto) 0.64 K/uL (0.24-0.82); Monocytes % (auto) 7.9 %; Neutrophils # (auto) 5.32 K/uL (1.4-6.5); Neutrophils % (auto) 65.3 %; Platelet Count 208 K/uL (130-400); RDW Coefficient of Variation 12.7 % (11.5-14.5); RDW Standard Deviation 43.1 fL (36.4-46.3); Red Blood Count 4.41 M/uL (3.93-5.22); White Blood Count 8.14 K/ul (4.8-10.8)
[2021-09-30 13:53] LABS: Acetaminophen < 3 ug/ml (10-30); Salicylate < 3.0 mg/dl (3.0-30)
[2021-09-30 13:54] LABS: Albumin Globulin Ratio 1.8 (0.9-2); Albumin Level 4.6 gm/dl (3.4-5.0); BUN Creatinine Ratio 9.6 (10-20); Bilirubin,Total 0.4 mg/dl (0.2-1.0); Creatinine Clr Calc Pharmacy 73.7 ml/min; Est GFR (African American) 107.5 ml/min; Est GFR (Non-African American) 92.7 ml/min; Globulin 2.6 gm/dl (2.5-4.0); Potassium 4.3 mmol/L (3.5-5.1); Total Protein 7.2 gm/dl (6.0-8.3)
[2021-09-30 14:05] LABS: Amphetamines+Metham, Urine Neg (Neg); Barbiturates, Urine Neg (Neg); Benzodiazepine, Urine Neg (Neg); Cocaine, Urine Neg (Neg); MDMA (Ecstacy), Urine Neg (Neg); Methadone, Urine Neg (Neg); Opiate, Urine Neg (Neg); Phencyclidine, Urine Neg (Neg)
[2021-09-30] MEDS ORDERED: NICOTINE 14 MG/24 HR PATCH TD SCH (15:00)
[2021-09-30] MEDS ORDERED: clonazePAM 0.25 MG TAB PO PRN (17:30)
[2021-09-30] MEDS ORDERED: risperiDONE 1 MG TABLET PO PRN ×2 (17:30→21:02)
[2021-09-30] MEDS ORDERED: MAGNESIUM HYDROXIDE SUSP 30 ML UDC PO PRN (20:59)
[2021-09-30] MEDS ORDERED: SODIUM CHLORIDE 0.65% NA SOLN 45 ML (OCEAN) PRN (20:59)
[2021-09-30] MEDS ORDERED: hydrOXYzine HCl 25 MG TAB PO PRN (20:59)
[2021-09-30] MEDS ORDERED: NICOTINE POLACRILEX 2 MG GUM MT PRN (20:59)
[2021-09-30] MEDS ORDERED: ACETAMINOPHEN 325 MG TAB PO PRN (20:59)
[2021-09-30] MEDS ORDERED: BISMUTH SUBSALICYLATE LIQD 236 ML PO PRN (20:59)
[2021-09-30] MEDS ORDERED: ALUMINUM/MAGNESIUM SUSP 30 ML UDC PO PRN (20:59)
[2021-09-30] MEDS ORDERED: traZODone HCL 100 MG TAB PO SCH (21:00)
[2021-09-30] MEDS ORDERED: risperiDONE 1 MG TABLET PO SCH (21:00)
[2021-09-30] MEDS: BENZTROPINE MESYLATE 1 MG TAB PO PRN (21:33)
--- NOTE | 2021-10-01 01:31 | Emergency Department Note ---
ED Visit Note This patient was signed out to me at shift change by Dr. Thomas at which point she was being evaluated by 3 S. they did evaluate her and are going to admit her for further inpatient treatment and evaluation voluntarily. .
[2021-10-01] MEDS: NICOTINE 14 MG/24 HR PATCH TD SCH (08:42)
[2021-10-01] MEDS: LEVOTHYROXINE SODIUM 112 MCG TABLET PO SCH (08:43)
[2021-10-01] MEDS: FLUoxetine HCL 20 MG CAP PO SCH (08:43)
[2021-10-01] MEDS ORDERED: PRAVASTATIN SOD 40 MG TAB PO SCH (09:00)
[2021-10-01] MEDS ORDERED: risperiDONE 1 MG TABLET PO SCH ×2 (09:00)
[2021-10-01] MEDS ORDERED: FLUoxetine HCL 20 MG CAP PO SCH (09:00)
[2021-10-01] MEDS ORDERED: LEVOTHYROXINE SODIUM 112 MCG TABLET PO SCH (09:00)
[2021-10-01] MEDS: clonazePAM 0.25 MG TAB PO PRN ×2 (09:26→15:10)
[2021-10-01] MEDS ORDERED: traZODone HCL 100 MG TAB PO PRN (11:53)
[2021-10-01] MEDS: BENZTROPINE MESYLATE 1 MG TAB PO PRN (12:04)
[2021-10-01] MEDS: NEOMYCIN/POLYMYX/BACITR OINT 15 GM TUBE EXT PRN (12:47)
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
[2021-10-01] MEDS: PRAVASTATIN SOD 40 MG TAB PO SCH (17:32)
[2021-10-01] MEDS ORDERED: traZODone HCL 50 MG TAB PO SCH (21:00)
[2021-10-01] MEDS ORDERED: risperiDONE 2 MG TABLET PO SCH (21:00)
[2021-10-01] MEDS ORDERED: QUEtiapine FUMARATE 100 MG TABLET PO SCH (22:00)
[2021-10-02] MEDS: LEVOTHYROXINE SODIUM 112 MCG TABLET PO SCH (08:12)
[2021-10-02] MEDS: FLUoxetine HCL 20 MG CAP PO SCH (08:12)
[2021-10-02] MEDS: NICOTINE 14 MG/24 HR PATCH TD SCH (08:12)
[2021-10-02] MEDS: NEOMYCIN/POLYMYX/BACITR OINT 15 GM TUBE EXT PRN (08:16)
[2021-10-02] MEDS: clonazePAM 0.25 MG TAB PO SCH ×2 (10:47→17:20)
--- NOTE | 2021-10-02 13:35 | Psychiatric Progress Note ---
Date of Service October 02, 2021 Impression / Recommendations Impression 56 yo female with hx of anxiety and depression, recent hospitalization for what was felt to be meth related psychosis more likely part of a manic episode presents with ongoing mixed symptoms and side effects to not taking her medicaitons as prescribed with dystonia and possible activation from extra Prozac. Patient was counseled re: this. 10/02/21: less EPS, very depressed/tearful/SI (1) Bipolar disorder: Plan 10/02/21: Titrate hx Seroquel 150 mg. Change Klonopin from prn to standing. Rash appears stress induced rather than generalized drug rash but will follow. Hydrocortisone cream. 10/01/21: The patient was admitted to the [facility] ([facility] mental health unit) on q15 min checks (behavioral with suicide precautions) for safety. The patient will participate in group, recreational, and milieu therapies and will be offered additional individual and family sessions as clinically appropriate. Risks/benefits/alternatives were reviewed re: antipsychotics for mood and/or psychosis. Discussion included but was not limited to metabolic side effects, risks of TD and suicidal thoughts. There were no abnormal motor movements at baseline. Fasting glucose and lipid panel on file. The patient agrees to a trial of Seroquel 100 mg this hs in place of Risperdal and 25 mg q 6 prn. Patient is having side effects to Risperdal so will not cross taper, dyskinesia unlikely as replacing with Seroquel. Inventory Assets Strengths: family support, future focus re: employment Needs: improve structure of day, outpatient therapy Suicide Risk Level Suicide Risk Level: High-Moderate (q15 min suicide checks) Risk Factors Assessment Do You Have Access To A Gun?: No Mental Health Diagnoses: Yes Previous Attempt: Yes Previous Psychiatric Hospitalization: Yes Protective Factors Assessment Employed: Yes ([employer], Start 10/12/21) Supportive Family: Yes Interval History Identifying Information CEDRIC MYERS is a 56-year-old F who currently lives in [facility] with her mother and step-father, has a history of inpatient [facility] July 2021, and was admitted on 09/30/21 20:59 on a 201 voluntary commitment for inability to function. Chief Complaint "last night I wished there wasn't glass in that window". Review of Systems Sleep Information Total Hours of Sleep: 8 Meal Information Percent Meal Consumed - Breakfast: 100 Percent Meal Consumed - Lunch: 75 Percent Meal Consumed - Dinner: 50 Subjective Subjective Patient was seen & assessed and interval progress reviewed with treatment team. Patient reports feeling like she shouldn't have come to the hospital in the context of wanting to smoke. Told staff she looked out the window and fantasized about jumping. She's convinced herself she wasn't hired for the job she is to start when she is. States she is able to speak better and appears less restless, sleep was OK just focussed on "what am I going to take to get through the day?" reviewed meds and duration of action. Klonopin helpful last pm and will administer following our session as she is humming to calm herself and is extremely tearful. Appears to have papules forming on sternum and back of neck from scratching. Physical Exam Psychiatric Orientation: alert and oriented x 3 Apperance: appropriately dressed and appropriately groomed Eye Contact: good eye contact Motor Behavior: no abnormal motor movements Speech: normal rate/rhythm/volume of speech Affect: + depressed affect Mood: + depressed mood Thought Process: goal directed thought process Thought Content: reality based without delusions Suicidal Thoughts: denies suicidal plan (on unit) and denies suicidal intent; + reports suicidal thoughts (jump from window (can't act here)) Homicidal Thoughts: denies homicidal thoughts Hallucinations: no auditory hallucinations and no visual hallucinations Cognition: attention grossly intact and language grossly intact Estimated Intelligence: consistent with education level Insight: + limited insight Judgement: + limited judgement Vital Signs (Past 24 Hours) Last Vital Signs Temp 37.0 C 10/02/21 06:00 Pulse 86 10/02/21 06:54 Resp 18 10/02/21 06:00 BP 122/83 10/02/21 06:54 Pulse Ox 96 10/02/21 06:00 O2 Del Method 10/02/21 06:00 Results & Data ([facility]) Current Inpatient Medications Current Inpatient Medications: Current Inpatient Medications Acetaminophen (Acetaminophen 325 Mg Tab) 650 mg PO Q4H PRN PRN Reason: Headache or Minor Fever Stop: 10/30/21 20:58 Al Hydrox/Mg Hydrox/Simethicone (Aluminum/Magnesium Susp 30 Ml Udc) 30 ml PO Q4H PRN PRN Reason: GI Upset Stop: 10/30/21 20:58 Benztropine Mesylate (Benztropine Mesylate 1 Mg Tab) 1 mg PO Q6 PRN PRN Reason: dystonia/thick tongue Stop: 10/30/21 21:01 Last Admin: 10/01/21 12:04 Dose: 1 mg Bismuth Subsalicylate (Bismuth Subsalicylate Liqd 236 Ml) 15 ml PO PRN PRN PRN Reason: Loose Stool Stop: 10/30/21 20:58 Clonazepam (Clonazepam 0.25 Mg Tab) 0.25 mg PO BIDM [facility] Stop: 11/01/21 10:24 Last Admin: 10/02/21 10:47 Dose: 0.25 mg Fluoxetine HCl (Fluoxetine Hcl 20 Mg Cap) 40 mg PO QAM [facility] Stop: 10/31/21 08:59 Last Admin: 10/02/21 08:12 Dose: 40 mg Hydroxyzine HCl (Hydroxyzine Hcl 25 Mg Tab) 50 mg PO HSZ PRN PRN Reason: Insomnia Stop: 10/30/21 20:58 Hydroxyzine HCl (Hydroxyzine Hcl 25 Mg Tab) 25 mg PO Q4H PRN PRN Reason: Anxiety Stop: 10/30/21 20:58 Levothyroxine Sodium (Levothyroxine Sodium 112 Mcg Tablet) 112 mcg PO DAILYBB [facility] Stop: 10/31/21 06:29 Last Admin: 10/02/21 08:12 Dose: 112 mcg Magnesium Hydroxide (Magnesium Hydroxide Susp 30 Ml Udc) 30 ml PO DAILY PRN PRN Reason: Constipation Stop: 10/30/21 20:58 Miscellaneous (Remove Nicoderm Patch) 1 each N/A DAILY@0859 [facility] Stop: 10/31/21 08:58 Last Admin: 10/02/21 08:13 Dose: 1 each Neomycin/Polymyxin/Bacitracin (Neomycin/Polymyx/Bacitr Oint 15 Gm Tube) 1 appln EXT BID PRN PRN Reason: Skin Irritation Stop: 10/31/21 08:31 Last Admin: 10/02/21 08:16 Dose: 1 appln Nicotine (Nicotine 14 Mg/24 Hr Patch) 14 mg TD QAM [facility] Stop: 10/31/21 08:59 Last Admin: 10/02/21 08:12 Dose: 14 mg Nicotine Polacrilex (Nicotine Polacrilex 2 Mg Gum) 1 piece MT PRN PRN PRN Reason: Nicotine Withdrawal Stop: 10/30/21 20:58 Pravastatin Sodium (Pravastatin Sod 40 Mg Tab) 40 mg PO DAILY@1700 [facility] Stop: 10/31/21 16:59 Last Admin: 10/01/21 17:32 Dose: 40 mg Quetiapine Fumarate (Quetiapine Fumarate 25 Mg Tablet) 25 mg PO Q6 PRN PRN Reason: Anxiety/Agitation Stop: 10/31/21 11:51 Quetiapine Fumarate (Quetiapine Fumarate 25 Mg Tablet) 150 mg PO HS [facility] Stop: 11/01/21 21:59 Risperidone (Risperidone 1 Mg Tablet) 1 mg PO QAM [facility] Stop: 10/31/21 08:59 Sodium Chloride (Sodium Chloride 0.65% Na Soln 45 Ml ([place])) 1 - 2 sprays NA PRN PRN PRN Reason: Nasal Dryness/Congestion Stop: 10/30/21 20:58 Trazodone HCl (Trazodone Hcl 100 Mg Tab) 100 mg PO HS PRN PRN Reason: Insomnia Stop: 10/31/21 21:59
[2021-10-02] MEDS: PRAVASTATIN SOD 40 MG TAB PO SCH (17:20)
[2021-10-02] MEDS ORDERED: QUEtiapine FUMARATE 25 MG TABLET PO SCH (22:00)
--- NOTE | 2021-10-03 05:14 | Psychiatric Progress Note ---
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 Patient was counseled re: this. 10/03/21: minimal change (1) Bipolar disorder: Plan 10/03/21: Titrate Seroquel 200 mg. Increase Klonopin to 0.5 mg BIDM. 10/02/21: Titrate hx Seroquel 150 mg. Change Klonopin from prn to standing. Rash appears stress induced rather than generalized drug rash but will follow. Hydrocortisone cream. 10/01/21: [facility] on q15 min checks (behavioral with suicide precautions) for safety. The patient will participate in group, recreational, and milieu therapies and will be offered additional individual and family sessions as clinically appropriate. Risks/benefits/alternatives were reviewed re: antipsychotics for mood and/or psychosis. Discussion included but was not limited to metabolic side effects, risks of TD and suicidal thoughts. There were no abnormal motor movements at baseline. Fasting glucose and lipid panel on file. The patient agrees to a trial of Seroquel 100 mg this hs in place of Risperdal and 25 mg q 6 prn. Patient is having side effects to Risperdal so will not cross taper, dyskinesia unlikely as replacing with Seroquel. Inventory Assets Strengths: family support, future focus re: employment Needs: improve structure of day, outpatient therapy Suicide Risk Level Suicide Risk Level: High-Moderate (q15 min suicide checks) Risk Factors Assessment Do You Have Access To A Gun?: No Mental Health Diagnoses: Yes Previous Attempt: Yes Previous Psychiatric Hospitalization: Yes Protective Factors Assessment Employed: Yes ([employer], Start 10/12/21) Supportive Family: Yes Interval History Identifying Information CEDRIC MYERS is a 56-year-old F who currently lives in [facility] with her mother and step-father, has a history of inpatient [facility] July 2021, and was admitted on 09/30/21 20:59 on a 201 voluntary commitment for inability to function. Chief Complaint "I still don't now how i can deal with it all". Review of Systems Sleep Information Total Hours of Sleep: 8 Meal Information Percent Meal Consumed - Breakfast: 100 Percent Meal Consumed - Lunch: 100 Percent Meal Consumed - Dinner: 100 Subjective Subjective Patient was seen & assessed and interval progress reviewed with nursing and social work. Remains overwhelmed but sleep is improving, rated mood as 3 and irr itable/stressed. Slept with nicotine patch on though staff directed to remove. makes a humming noise when nervous, says she does it at home so very unlikely it's a withdrawal issue from Risperdal. Rash still present but unchanged. Physical Exam Psychiatric Orientation: alert and oriented x 3 Apperance: appropriately dressed and appropriately groomed Eye Contact: good eye contact Motor Behavior: no abnormal motor movements Speech: normal rate/rhythm/volume of speech Affect: + depressed affect Mood: + depressed mood Thought Process: goal directed thought process Thought Content: reality based without delusions Suicidal Thoughts: denies suicidal plan (on unit) and denies suicidal intent; + reports suicidal thoughts Homicidal Thoughts: denies homicidal thoughts Hallucinations: no auditory hallucinations and no visual hallucinations Cognition: attention grossly intact and language grossly intact Estimated Intelligence: consistent with education level Insight: + limited insight Judgement: + limited judgement Vital Signs (Past 24 Hours) Last Vital Signs Temp 36.1 C L 10/02/21 20:00 Pulse 86 10/02/21 06:54 Resp 18 10/02/21 06:00 BP 122/83 10/02/21 06:54 Pulse Ox 96 10/02/21 06:00 O2 Del Method 10/02/21 06:00 Results & Data ([facility]) Current Inpatient Medications Current Inpatient Medications: Current Inpatient Medications Acetaminophen (Acetaminophen 325 Mg Tab) 650 mg PO Q4H PRN PRN Reason: Headache or Minor Fever Stop: 10/30/21 20:58 Al Hydrox/Mg Hydrox/Simethicone (Aluminum/Magnesium Susp 30 Ml Udc) 30 ml PO Q 4H PRN PRN Reason: GI Upset Stop: 10/30/21 20:58 Benztropine Mesylate (Benztropine Mesylate 1 Mg Tab) 1 mg PO Q6 PRN PRN Reason: dystonia/thick tongue Stop: 10/30/21 21:01 Last Admin: 10/01/21 12:04 Dose: 1 mg Bismuth Subsalicylate (Bismuth Subsalicylate Liqd 236 Ml) 15 ml PO PRN PRN PRN Reason: Loose Stool Stop: 10/30/21 20:58 Clonazepam (Clonazepam 0.25 Mg Tab) 0.25 mg PO BIDM [facility] Stop: 11/01/21 10:24 Last Admin: 10/02/21 17:20 Dose: 0.25 mg Fluoxetine HCl (Fluoxetine Hcl 20 Mg Cap) 40 mg PO QAM [facility] Stop: 10/31/21 08:59 Last Admin: 10/02/21 08:12 Dose: 40 mg Hydrocortisone (Hydrocortisone 1% Crm 30 Gm Tube) 1 appln EXT BID PRN PRN Reason: affected areas Stop: 11/01/21 13:40 Hydroxyzine HCl (Hydroxyzine Hcl 25 Mg Tab) 50 mg PO HSZ PRN PRN Reason: Insomnia Stop: 10/30/21 20:58 Hydroxyzine HCl (Hydroxyzine Hcl 25 Mg Tab) 25 mg PO Q4H PRN PRN Reason: Anxiety Stop: 10/30/21 20:58 Levothyroxine Sodium (Levothyroxine Sodium 112 Mcg Tablet) 112 mcg PO DAILYBB [facility] Stop: 10/31/21 06:29 Last Admin: 10/02/21 08:12 Dose: 112 mcg Magnesium Hydroxide (Magnesium Hydroxide Susp 30 Ml Udc) 30 ml PO DAILY PRN PRN Reason: Constipation Stop: 10/30/21 20:58 Miscellaneous (Remove Nicoderm Patch) 1 each N/A DAILY@0859 [facility] Stop: 10/31/21 08:58 Last Admin: 10/02/21 08:13 Dose: 1 each Neomycin/Polymyxin/Bacitracin (Neomycin/Polymyx/Bacitr Oint 15 Gm Tube) 1 appln EXT BID PRN PRN Reason: Skin Irritation Stop: 10/31/21 08:31 Last Admin: 10/02/21 08:16 Dose: 1 appln Nicotine (Nicotine 14 Mg/24 Hr Patch) [facility] Stop: 10/31/21 08:59 Last Admin: 10/02/21 08:12 Dose: 14 mg Nicotine Polacrilex (Nicotine Polacrilex 2 Mg Gum) 1 piece MT PRN PRN PRN Reason: Nicotine Withdrawal Stop: 10/30/21 20:58 Pravastatin Sodium (Pravastatin Sod 40 Mg Tab) 40 mg PO DAILY@1700 [facility] Stop: 10/31/21 16:59 Last Admin: 10/02/21 17:20 Dose: 40 mg Quetiapine Fumarate (Quetiapine Fumarate 25 Mg Tablet) 25 mg PO Q6 PRN PRN Reason: Anxiety/Agitation Stop: 10/31/21 11:51 Quetiapine Fumarate (Quetiapine Fumarate 25 Mg Tablet) 150 mg PO HS [facility] Stop: 11/01/21 21:59 Last Admin: 10/02/21 20:43 Dose: 150 mg Risperidone (Risperidone 1 Mg Tablet) 1 mg PO QAM [facility] Stop: 10/31/21 08:59 Sodium Chloride (Sodium Chloride 0.65% Na Soln 45 Ml ([place])) 1 - 2 sprays NA PRN PRN PRN Reason: Nasal Dryness/Congestion Stop: 10/30/21 20:58 Trazodone HCl (Trazodone Hcl 100 Mg Tab) 100 mg PO HS PRN PRN Reason: Insomnia Stop: 10/31/21 21:59 Mental Health & Subst Abuse Tx Psychiatrist Name of Psychiatrist: John [facility] Psychiatrist's Date of Appointment with Psychiatrist: 10/09/21 Time of Appointment with Psychiatrist: 8am Psychiatric Appointment Comment: [address] [place], [place] Post Discharge Appointments Primary Care Physician Name Of Family Doctor: [facility] Date of Appointment with PCP: 10/12/21 Time of Appointment with PCP: 10:50am Provider Appointment Comment: [address] [facility], [place] [address]
[2021-10-03] MEDS: FLUoxetine HCL 20 MG CAP PO SCH (08:20)
[2021-10-03] MEDS: LEVOTHYROXINE SODIUM 112 MCG TABLET PO SCH (08:20)
[2021-10-03] MEDS: NICOTINE 14 MG/24 HR PATCH TD SCH (08:21)
[2021-10-03] MEDS: clonazePAM 0.25 MG TAB PO SCH (08:23)
[2021-10-03] MEDS ORDERED: clonazePAM 0.25 MG TAB PO STA (09:44)
[2021-10-03] MEDS: QUEtiapine FUMARATE 25 MG TABLET PO PRN (10:52)
[2021-10-03] MEDS: hydrOXYzine HCl 25 MG TAB PO PRN (16:25)
[2021-10-03] MEDS: PRAVASTATIN SOD 40 MG TAB PO SCH (17:42)
[2021-10-03] MEDS: clonazePAM 0.5 MG TAB PO SCH (17:42)
[2021-10-03] MEDS: QUEtiapine FUMARATE 200 MG TAB PO SCH (20:27)
[2021-10-04] MEDS: FLUoxetine HCL 20 MG CAP PO SCH (08:34)
[2021-10-04] MEDS: clonazePAM 0.5 MG TAB PO SCH ×2 (08:34→17:30)
[2021-10-04] MEDS: NICOTINE 14 MG/24 HR PATCH TD SCH (08:34)
[2021-10-04] MEDS: LEVOTHYROXINE SODIUM 112 MCG TABLET PO SCH (08:34)
--- NOTE | 2021-10-04 09:10 | Psychiatric Progress Note ---
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 MNPR due to extreme anxiety and inability to tolerate a roommate due to constant tearfulness with any conversations. 10/04/21: Reviewed interim progress per Dr. Guzman's notes. Diagnostically differential remains broad agree that this could be late onset BPAD given menopausal age versus MDD with severe anxious distress versus medication side effect of extreme akathisia. Tolerating increased dose of Seroquel though some concern this could be contributing to increased akathisia, though quite unlikely. Reviewed starting propranolol which she is agreeable to to see if this helps with anxiety and possible akathisia reviewed side effects including but not limited to low BP and syncope. Given odd humming/chest noise had nursing re-check O2 saturation which was normal. If noise persists may consider chest X- ray given history of tobacco use. (1) Bipolar disorder: Plan 10/04/21: Added propranolol 10mg BID for akathisia. Continue with fluoxetine, Klonopin, seroquel. Additional ativan dose ordered given her level of acute distress. 10/03/21: Titrate Seroquel 200 mg. Increase Klonopin to 0.5 mg BIDM. 10/02/21: Titrate hx Seroquel 150 mg. Change Klonopin from prn to standing. Rash appears stress induced rather than generalized drug rash but will follow. Hydrocortisone cream. 10/01/21: The patient was admitted to the [facility] ([facility] mental health unit) on q15 min checks (behavioral with suicide precautions) for safety. The patient will participate in group, recreational, and milieu therapies and will be offered additional individual and family sessions as clinically appropriate. Risks/benefits/alternatives were reviewed re: antipsychotics for mood and/or psychosis. Discussion included but was not limited to metabolic side effects, risks of TD and suicidal thoughts. There were no abnormal motor movements at b aseline. Fasting glucose and lipid panel on file. The patient agrees to a trial of Seroquel 100 mg this hs in place of Risperdal and 25 mg q 6 prn. Patient is having side effects to Risperdal so will not cross taper, dyskinesia unlikely as replacing with Seroquel. Inventory Assets Strengths: family support, future focus re: employment Needs: improve structure of day, outpatient therapy Suicide Risk Level Suicide Risk Level: High-Moderate (q15 min suicide checks) Risk Factors Assessment Do You Have Access To A Gun?: No Mental Health Diagnoses: Yes Previous Attempt: Yes Previous Psychiatric Hospitalization: Yes Protective Factors Assessment Employed: Yes ([employer], Start 10/12/21) Supportive Family: Yes Interval History Identifying Information CEDRIC MYERS is a 56-year-old F who currently lives in [facility] with her mother and step-father, has a history of inpatient [facility] July 2021, and was admitted on 09/30/21 20:59 on a 201 voluntary commitment for inability to function. Chief Complaint "I just do not know what to do". Review of Systems Sleep Information Total Hours of Sleep: 7.25 Meal Information Percent Meal Consumed - Breakfast: 100 Percent Meal Consumed - Lunch: 50 Percent Meal Consumed - Dinner: 80 Subjective Subjective Patient was seen & assessed and interval progress reviewed with treatment team nursing and social work. Very anxious and overwhelmed including inability to tolerate group therapy yesterday and today struggling to even fill out her menu. She remains unable to tolerate even brief conversations without becoming tearful and unable to converse. She did tolerate the seroquel yesterday and found it h elpful for sleep. She is pacing in her room while I meet with her pulling at her hair appears extremely uncomfortable stating that she feels like she needs to "crawl out of her skin". She becomes tearful as we discuss rocking on the floor unable to tolerate any type of extended conversation. He at times makes an odd humming versus wheezing noise. She denies any shortness of breath or chest pain or any other new physical symptoms. States that she makes the noise "when I am stressed". Discussed the possibility of akathisia and starting propranolol to see if this helps which she would like to do. She is otherwise unable to tolerate further discussion. Physical Exam Psychiatric Orientation: alert and oriented x 3 Apperance: appropriately dressed and appropriately groomed Eye Contact: + poor eye contact Motor Behavior: + psychomotor agitation (Pacing, restless, pulling at her hair) and + akathisia Speech: normal rate/rhythm/volume of speech Affect: + depressed affect, + anxious affect, + tearful affect, + labile affect and + irritable affect Mood: + depressed mood, + anxious mood and + irritable mood Thought Process: + perseveration Thought Content: reality based without delusions and + hopelessness Suicidal Thoughts: denies suicidal plan (on unit) and denies suicidal intent; + reports suicidal thoughts Homicidal Thoughts: denies homicidal thoughts Hallucinations: no auditory hallucinations and no visual hallucinations Cognition: attention grossly intact and language grossly intact Estimated Intelligence: consistent with education level Insight: + limited insight Judgement: + limited judgement Vital Signs (Past 24 Hours) Last Vital Signs Temp 36.9 C 10/04/21 06:56 Pulse 80 10/04/21 06:57 Resp 14 10/04/21 06:56 BP 118/78 10/04/21 06:57 Pulse Ox 98 10/03/21 06:00 O2 Del Method 10/03/21 06:00 Results & Data ([facility]) Current Inpatient Medications Current Inpatient Medications: Current Inpatient Medications Acetaminophen (Acetaminophen 325 Mg Tab) 650 mg PO Q4H PRN PRN Reason: Headache or Minor Fever Stop: 10/30/21 20:58 Al Hydrox/Mg Hydrox/Simethicone (Aluminum/Magnesium Susp 30 Ml Udc) 30 ml PO Q4H PRN PRN Reason: GI Upset Stop: 10/30/21 20:58 Benztropine Mesylate (Benztropine Mesylate 1 Mg Tab) 1 mg PO Q6 PRN PRN Reason: dystonia/thick tongue Stop: 10/30/21 21:01 Last Admin: 10/01/21 12:04 Dose: 1 mg Bismuth Subsalicylate (Bismuth Subsalicylate Liqd 236 Ml) 15 ml PO PRN PRN PRN Reason: Loose Stool Stop: 10/30/21 20:58 Clonazepam (Clonazepam 0.5 Mg Tab) 0.5 mg PO BIDM [facility] Stop: 11/02/21 17:44 Last Admin: 10/04/21 08:34 Dose: 0.5 mg Fluoxetine HCl (Fluoxetine Hcl 20 Mg Cap) 40 mg PO QAM [facility] Stop: 10/31/21 08:59 Last Admin: 10/04/21 08:34 Dose: 40 mg Hydrocortisone (Hydrocortisone 1% Crm 30 Gm Tube) 1 appln EXT BID PRN PRN Reason: affected areas Stop: 11/01/21 13:40 Hydroxyzine HCl (Hydroxyzine Hcl 25 Mg Tab) 50 mg PO HSZ PRN PRN Reason: Insomnia Stop: 10/30/21 20:58 Hydroxyzine HCl (Hydroxyzine Hcl 25 Mg Tab) 25 mg PO Q4H PRN PRN Reason: Anxiety Stop: 10/30/21 20:58 Last Admin: 10/03/21 16:25 Dose: 25 mg Levothyroxine Sodium (Levothyroxine Sodium 112 Mcg Tablet) 112 mcg PO DAILYBB [facility] Stop: 10/31/21 06:29 Last Admin: 10/04/21 08:34 Dose: 112 mcg Magnesium Hydroxide (Magnesium Hydroxide Susp 30 Ml Udc) 30 ml PO DAILY PRN PRN Reason: Constipation Stop: 10/30/21 20:58 Miscellaneous (Remove Nicoderm Patch) 1 each N/A DAILY@0859 [facility] Stop: 10/31/21 08:58 Last Admin: 10/04/21 08:34 Dose: 1 each Neomycin/Polymyxin/Bacitracin (Neomycin/Polymyx/Bacitr Oint 15 Gm Tube) 1 appln EXT BID PRN PRN Reason: Skin Irritation Stop: 10/31/21 08:31 Last Admin: 10/02/21 08:16 Dose: 1 appln Nicotine (Nicotine 14 Mg/24 Hr Patch) 14 mg TD [facility] Stop: 10/31/21 08:59 Last Admin: 10/04/21 08:34 Dose: 14 mg Nicotine Polacrilex (Nicotine Polacrilex 2 Mg Gum) 1 piece MT PRN PRN PRN Reason: Nicotine Withdrawal Stop: 10/30/21 20:58 Last Admin: 10/03/21 15:35 Dose: 1 piece Pravastatin Sodium (Pravastatin Sod 40 Mg Tab) 40 mg PO DAILY@1700 [facility] Stop: 10/31/21 16:59 Last Admin: 10/03/21 17:42 Dose: 40 mg Quetiapine Fumarate (Quetiapine Fumarate 25 Mg Tablet) 25 mg PO Q6 PRN PRN Reason: Anxiety/Agitation Stop: 10/31/21 11:51 Last Admin: 10/03/21 10:52 Dose: 25 mg Quetiapine Fumarate (Quetiapine Fumarate 200 Mg Tab) 200 mg PO HS [facility] Stop: 11/02/21 21:59 Last Admin: 10/03/21 20:27 Dose: 200 mg Risperidone (Risperidone 1 Mg Tablet) 1 mg PO QAM [facility] Stop: 10/31/21 08:59 Sodium Chloride (Sodium Chloride 0.65% Na Soln 45 Ml ([place])) 1 - 2 sprays NA PRN PRN PRN Reason: Nasal Dryness/Congestion Stop: 10/30/21 20:58 Trazodone HCl (Trazodone Hcl 100 Mg Tab) 100 mg PO HS PRN PRN Reason: Insomnia Stop: 10/31/21 21:59 Mental Health & Subst Abuse Tx Psychiatrist Name of Psychiatrist: [facility] Psychiatrist's Date of Appointment with Psychiatrist: 10/09/21 Time of Appointment with Psychiatrist: 8am Psychiatric Appointment Comment: [address] [place], [place] Post Discharge Appointments Primary Care Physician Name Of Family Doctor: [facility] Date of Appointment with PCP: 10/12/21 Time of Appointment with PCP: 10:50am Provider Appointment Comment: [address] [facility], [place] [address]
[2021-10-04] MEDS: NICOTINE 21 MG/24 HR TDSY TD SCH (10:00)
[2021-10-04] MEDS: QUEtiapine FUMARATE 25 MG TABLET PO PRN (14:25)
[2021-10-04] MEDS ORDERED: LORazepam 0.5 MG TAB PO PRN (14:59)
[2021-10-04] MEDS: PROPRANOLOL HCL 10 MG TAB PO SCH ×2 (15:15→20:48)
[2021-10-04] MEDS: PRAVASTATIN SOD 40 MG TAB PO SCH (17:30)
[2021-10-04] MEDS: QUEtiapine FUMARATE 200 MG TAB PO SCH (20:48)
[2021-10-04] MEDS ORDERED: PROPRANOLOL HCL 10 MG TAB PO SCH (21:00)
[2021-10-05] MEDS: FLUoxetine HCL 20 MG CAP PO SCH (08:40)
[2021-10-05] MEDS: LEVOTHYROXINE SODIUM 112 MCG TABLET PO SCH (08:40)
[2021-10-05] MEDS: NICOTINE 21 MG/24 HR TDSY TD SCH (08:40)
[2021-10-05] MEDS: clonazePAM 0.5 MG TAB PO SCH ×2 (08:40→17:15)
[2021-10-05] MEDS: PROPRANOLOL HCL 10 MG TAB PO SCH ×2 (08:41→15:41)
[2021-10-05] MEDS: HYDROCORTISONE 1% CRM 30 GM TUBE EXT PRN (10:19)
[2021-10-05] MEDS: NEOMYCIN/POLYMYX/BACITR OINT 15 GM TUBE EXT PRN (10:20)
[2021-10-05] MEDS: hydrOXYzine HCl 25 MG TAB PO PRN (13:00)
--- NOTE | 2021-10-05 16:41 | Psychiatric Progress Note ---
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 MNPR due to extreme anxiety and inability to tolerate a roommate due to constant tearfulness with any conversations. 10/05/21: Remains very anxious with recurrent panic attacks, SI and severe depression, significant psychomotor agitation seems most consistent with akathisia but acute kristian vs BPAD mixed state remains on the differential as well. Given that the Seroquel seems to be making things worse we will start to taper this and will increase propranolol as she tolerated this well and found it very helpful. May consider reintroduction of gabapentin versus alternative mood stabilizer depending on how she looks with lower dose of Seroquel. Continuing to encourage alternative strategies to cope with anxiety including exercise and mindfulness/relaxation as well as distraction but she struggles to engage with any of these coping skills given the very severe level of anxiety/restlessness. I think she experience yesterday improved when her anxiety did and was noted by nursing to come back as her anxiety increases which rules out a structural or breathing issue so she has not felt to need a chest x-ray at this time particularly as she continues to deny any other respiratory or throat issues. Reviewed scheduling trazodone for sleep and due to case study showing benefit in akathisia which she consents to. Reviewed side effects including but not limited to sedation, increased appetite. (1) Bipolar disorder: Plan 10/05/21: Increase propranolol to 20mg BID, taper fluoxetine to 20mg qd due to concern for activation. Discontinue seroquel as seems to be worsening akathisia and schedule trazodone for sleep. 10/04/21: Added propranolol 10mg BID for akathisia. Continue with fluoxetine, Klonopin, seroquel. Additional ativan dose ordered given her level of acute distress. 10/03/21: Titrate Seroquel 200 mg. Increase Klonopin to 0.5 mg BIDM. 10/02/21: Titrate hx Seroquel 150 mg. Change Klonopin from prn to standing. Rash appears stress induced rather than generalized drug rash but will follow. Hydrocortisone cream. 10/01/21: The patient was admitted to the [facility] ([facility] inpatient mental health unit) on q15 min checks (behavioral with suicide precautions) for safety. The patient will participate in group, recreational, and milieu therapies and will be offered additional individual and family sessions as clinically appropriate. Risks/benefits/alternatives were reviewed re: antipsychotics for mood and/or psychosis. Discussion included but was not limited to metabolic side effects, risks of TD and suicidal thoughts. There were no abnormal motor movements at baseline. Fasting glucose and lipid panel on file. The patient agrees to a trial of Seroquel 100 mg this hs in place of Risperdal and 25 mg q 6 prn. Patient is having side effects to Risperdal so will not cross taper, dyskinesia unlikely as replacing with Seroquel. Inventory Assets Strengths: family support, future focus re: employment Needs: improve structure of day, outpatient therapy Suicide Risk Level Suicide Risk Level: High-Moderate (q15 min suicide checks) Suicide Risk Level Comments: continues to have depression with SI and severe anxiety with panic attacks but able to safety contract and agrees to go to staff if feeling unsafe or if SI intensifies. Risk Factors Assessment Do You Have Access To A Gun?: No Mental Health Diagnoses: Yes Previous Attempt: Yes Previous Psychiatric Hospitalization: Yes Protective Factors Assessment Employed: Yes ([employer], Start 10/12/21) Supportive Family: Yes Interval History Identifying Information CEDRIC MYERS is a 56-year-old F who currently lives in [facility] with her mother and step-father, has a history of inpatient [facility] July 2021, and was admitted on 09/30/21 20:59 on a 201 voluntary commitment for inability to function. Chief Complaint "I can't live like this". Review of Systems Sleep Information Total Hours of Sleep: 7 Meal Information Percent Meal Consumed - Breakfast: 50 Percent Meal Consumed - Lunch: 100 Percent Meal Consumed - Dinner: 50 Subjective Subjective Patient was seen & assessed and interval progress reviewed with treatment team nursing and social work. She showed slight improvement yesterday evening after as needed propranolol dose including being able to tolerate sitting at the edge of a group. Unfortunately today she is again extremely anxious with frequent panic attacks, tearfulness and unable to tolerate any type of extended conversation. When meeting with her she repeatedly requests more options for as needed medication as "I just cannot take this". States that today is "not good". She endorses ongoing suicidal ideation which she attributes to her severe anxiety stating "I just want to ". She is agreeable to medication adjustments to further target her symptoms. We continue to try to assess if she feels like the Seroquel is helping versus contributing to any type of akathisia. She notes that she feels like she did best when she was on a combination of gabapentin Klonopin and fluoxetine in the past. Currently she feels that after the morning dose of Seroquel she feels worse and would rather transition to an alternative medication. Physical Exam Psychiatric Orientation: alert and oriented x 3 Apperance: appropriately dressed and appropriately groomed Eye Contact: + fair eye contact Motor Behavior: + psychomotor agitation (Pacing, restless, pulling at her hair) and + akathisia Speech: normal rate/rhythm/volume of speech Affect: + depressed affect, + anxious affect, + tearful affect, + labile affect and + irritable affect Mood: + depressed mood, + anxious mood and + irritable mood Thought Process: + perseveration Thought Content: reality based without delusions and + hopelessness Suicidal Thoughts: denies suicidal plan (on unit) and denies suicidal intent; + reports suicidal thoughts Homicidal Thoughts: denies homicidal thoughts Hallucinations: no auditory hallucinations and no visual hallucinations Cognition: attention grossly intact and language grossly intact Estimated Intelligence: consistent with education level Insight: + limited insight Judgement: + limited judgement Vital Signs (Past 24 Hours) Last Vital Signs Temp 36.9 C 10/05/21 06:45 Pulse 101 H 10/05/21 15:42 Resp 20 10/05/21 06:45 BP 144/93 H 10/05/21 15:42 Pulse Ox 97 10/05/21 06:45 O2 Del Method 10/05/21 06:45 Results & Data ([facility]) Current Inpatient Medications Current Inpatient Medications: Current Inpatient Medications Acetaminophen (Acetaminophen 325 Mg Tab) 650 mg PO Q4H PRN PRN Reason: Headache or Minor Fever Stop: 10/30/21 20:58 Al Hydrox/Mg Hydrox/Simethicone (Aluminum/Magnesium Susp 30 Ml Udc) 30 ml PO Q4H PRN PRN Reason: GI Upset Stop: 10/30/21 20:58 Benztropine Mesylate (Benztropine Mesylate 1 Mg Tab) 1 mg PO Q6 PRN PRN Reason: dystonia/thick tongue Stop: 10/30/21 21:01 Last Admin: 10/01/21 12:04 Dose: 1 mg Bismuth Subsalicylate (Bismuth Subsalicylate Liqd 236 Ml) 15 ml PO PRN PRN PRN Reason: Loose Stool Stop: 10/30/21 20:58 Clonazepam (Clonazepam 0.5 Mg Tab) 0.5 mg PO BIDM [facility] Stop: 11/02/21 17:44 Last Admin: 10/05/21 08:40 Dose: 0.5 mg Fluoxetine HCl (Fluoxetine Hcl 20 Mg Cap) 40 mg PO QAM [facility] Stop: 10/31/21 08:59 Last Admin: 10/05/21 08:40 Dose: 40 mg Hydrocortisone (Hydrocortisone 1% Crm 30 Gm Tube) 1 appln EXT BID PRN PRN Reason: affected areas Stop: 11/01/21 13:40 Last Admin: 10/05/21 10:19 Dose: 1 appln Hydroxyzine HCl (Hydroxyzine Hcl 25 Mg Tab) 50 mg PO HSZ PRN PRN Reason: Insomnia Stop: 10/30/21 20:58 Hydroxyzine HCl (Hydroxyzine Hcl 25 Mg Tab) 25 mg PO Q4H PRN PRN Reason: Anxiety Stop: 10/30/21 20:58 Last Admin: 10/05/21 13:00 Dose: 25 mg Levothyroxine Sodium (Levothyroxine Sodium 112 Mcg Tablet) [facility] Stop: 10/31/21 06:29 Last Admin: 10/05/21 08:40 Dose: 112 mcg Lorazepam (Lorazepam 0.5 Mg Tab) 0.5 mg PO DAILY PRN PRN Reason: Anxiety Stop: 11/03/21 14:58 Last Admin: 10/05/21 11:00 Dose: 0.5 mg Magnesium Hydroxide (Magnesium Hydroxide Susp 30 Ml Udc) 30 ml PO DAILY PRN PRN Reason: Constipation Stop: 10/30/21 20:58 Miscellaneous (Remove Nicoderm Patch) 1 each N/A DAILY@0859 [facility] Stop: 10/31/21 08:58 Last Admin: 10/05/21 08:46 Dose: 1 each Miscellaneous (Remove Nicoderm Patch) 1 each N/A DAILY@0859 [facility] Stop: 11/04/21 08:58 Last Admin: 10/05/21 08:46 Dose: 1 each Neomycin/Polymyxin/Bacitracin (Neomycin/Polymyx/Bacitr Oint 15 Gm Tube) 1 appln EXT BID PRN PRN Reason: Skin Irritation Stop: 10/31/21 08:31 Last Admin: 10/05/21 10:20 Dose: 1 appln Nicotine (Nicotine 21 Mg/24 Hr Tdsy) 21 mg TD QAM [facility] Stop: 11/03/21 09:14 Last Admin: 10/05/21 08:40 Dose: 21 mg Nicotine Polacrilex (Nicotine Polacrilex 2 Mg Gum) 1 piece MT PRN PRN PRN Reason: Nicotine Withdrawal Stop: 10/30/21 20:58 Last Admin: 10/03/21 15:35 Dose: 1 piece Pravastatin Sodium (Pravastatin Sod 40 Mg Tab) 40 mg PO DAILY@1700 [facility] Stop: 10/31/21 16:59 Last Admin: 10/04/21 17:30 Dose: 40 mg Propranolol HCl (Propranolol Hcl 10 Mg Tab) 10 mg PO BID [facility] Stop: 11/03/21 14:59 Last Admin: 10/05/21 15:41 Dose: 10 mg Quetiapine Fumarate (Quetiapine Fumarate 25 Mg Tablet) 25 mg PO Q6 PRN PRN Reason: Anxiety/Agitation Stop: 10/31/21 11:51 Last Admin: 10/04/21 14:25 Dose: 25 mg Quetiapine Fumarate (Quetiapine Fumarate 200 Mg Tab) 200 mg PO HS [facility] Stop: 11/02/21 21:59 Last Admin: 10/04/21 20:48 Dose: 200 mg Risperidone (Risperidone 1 Mg Tablet) 1 mg PO QAM [facility] Stop: 10/31/21 08:59 Sodium Chloride (Sodium Chloride 0.65% Na Soln 45 Ml ([place])) 1 - 2 sprays NA PRN PRN PRN Reason: Nasal Dryness/Congestion Stop: 10/30/21 20:58 Trazodone HCl (Trazodone Hcl 100 Mg Tab) 100 mg PO HS PRN PRN Reason: Insomnia Stop: 10/31/21 21:59 Mental Health & Subst Abuse Tx Psychiatrist Name of Psychiatrist: [facility] Psychiatrist's Date of Appointment with Psychiatrist: 10/09/21 Time of Appointment with Psychiatrist: 8am Psychiatric Appointment Comment: [address] [place], [place] Post Discharge Appointments Primary Care Physician Name Of Family Doctor: [facility] Date of Appointment with PCP: 10/12/21 Time of Appointment with PCP: 10:50am Provider Appointment Comment: [address], [place] [address]
[2021-10-05] MEDS: PRAVASTATIN SOD 40 MG TAB PO SCH (17:14)
[2021-10-05] MEDS: traZODone HCL 100 MG TAB PO SCH (20:16)
[2021-10-05] MEDS: PROPRANOLOL HCL 20 MG TAB PO SCH (20:16)
[2021-10-06] MEDS: hydrOXYzine HCl 25 MG TAB PO PRN ×2 (04:17→13:21)
[2021-10-06] MEDS: LEVOTHYROXINE SODIUM 112 MCG TABLET PO SCH (08:42)
[2021-10-06] MEDS: NICOTINE 21 MG/24 HR TDSY TD SCH (08:42)
[2021-10-06] MEDS: clonazePAM 0.5 MG TAB PO SCH ×2 (08:43→15:50)
[2021-10-06] MEDS: PROPRANOLOL HCL 20 MG TAB PO SCH ×2 (08:43→21:17)
[2021-10-06] MEDS: FLUoxetine HCL 20 MG CAP PO SCH (08:43)
[2021-10-06] MEDS: NEOMYCIN/POLYMYX/BACITR OINT 15 GM TUBE EXT PRN (09:57)
[2021-10-06] MEDS: LORazepam 0.5 MG TAB PO PRN (09:57)
[2021-10-06] MEDS: HYDROCORTISONE 1% CRM 30 GM TUBE EXT PRN (09:58)
[2021-10-06] MEDS: PRAVASTATIN SOD 40 MG TAB PO SCH (16:35)
--- NOTE | 2021-10-06 17:31 | Psychiatric Progress Note ---
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 MNPR due to extreme anxiety and inability to tolerate a roommate due to constant tearfulness with any conversations. 10/06/21: Remains very anxious with recurrent panic attacks, SI and severe depression, significant psychomotor agitation seems most consistent with akathisia versus acute kristian with prominent irritability and mood lability vs BPAD mixed state. We had an extensive discussion about potential differential including possibility of late onset bipolar disorder particularly given her abrupt and impulsive decisions prior to previous hospitalization in July and ongoing symptoms after discharge. We also discussed possibility of akathisia though this would be less likely with Seroquel and she has not noticed any difference today since stopping that medication. We reviewed other options including continue to wait to see if akathisia type symptoms improve with being off the Seroquel versus other options for mood stabilization for bipolar disorder including lithium which she would like to start and consented to.Discussed risks, benefits and alternatives. Patient would like to start and consented to lithium for late onset bipolar disorder. Reviewed side effects including but not limited to risks of dehydration, renal, thyroid, cardiac side effects, drug interactions (NSAIDs, ACEIs, angiotensin receptor antagonists, risks). Baseline labs including TSH, Cr, electrolytes, LFTs, CBC with platelets and UA were preformed on admission on 09/30/2021 and these were reviewed and WNL. (1) Bipolar disorder: Plan 10/06/21: Start [place] carbonate 300mg qhs 10/05/21: Increase propranolol to 20mg BID, taper fluoxetine to 20mg qd due to concern for activation. Discontinue seroquel as seems to be worsening akathisia and schedule trazodone for sleep. 10/04/21: Added propranolol 10mg BID for akathisia. Continue with fluoxetine, Klonopin, seroquel. Additional ativan dose ordered given her level of acute distress. 10/03/21: Titrate Seroquel 200 mg. Increase Klonopin to 0.5 mg BIDM. 10/02/21: Titrate hx Seroquel 150 mg. Change Klonopin from prn to standing. Rash appears stress induced rather than generalized drug rash but will follow. Hydrocortisone cream. 10/01/21: The patient was admitted to the [facility] ([facility]) on q15 min checks (behavioral with suicide precautions) for safety. The patient will participate in group, recreational, and milieu therapies and will be offered additional individual and family sessions as clinically appropriate. Risks/benefits/alternatives were reviewed re: antipsychotics for mood and/or psychosis. Discussion included but was not limited to metabolic side effects, risks of TD and suicidal thoughts. There were no abnormal motor movements at baseline. Fasting glucose and lipid panel on file. The patient agrees to a trial of Seroquel 100 mg this hs in place of Risperdal and 25 mg q 6 prn. Patient is having side effects to Risperdal so will not cross taper, dyskinesia unlikely as replacing with Seroquel. Inventory Assets Strengths: family support, future focus re: employment Needs: improve structure of day, outpatient therapy Suicide Risk Level Suicide Risk Level: High-Moderate (q15 min suicide checks) Suicide Risk Level Comments: continues to have depression with SI and severe anxiety with panic attacks but able to safety contract and agrees to go to staff if feeling unsafe or if SI intensifies. Risk Factors Assessment Do You Have Access To A Gun?: No Mental Health Diagnoses: Yes Previous Attempt: Yes Previous Psychiatric Hospitalization: Yes Protective Factors Assessment Employed: Yes ([employer], Start 10/12/21) Supportive Family: Yes Interval History Identifying Information CEDRIC MYERS is a 56-year-old F who currently lives in [facility] with her mother and step-father, has a history of inpatient [facility] July 2021, and was admitted on 09/30/21 20:59 on a 201 voluntary commitment for inability to function. Chief Complaint "I am not good". Review of Systems Sleep Information Total Hours of Sleep: 5.75 Sleep Comments: became anxious around 0400. Received 25mg Vistaril which was somewhat effective Meal Information Percent Meal Consumed - Breakfast: 50 Percent Meal Consumed - Lunch: 40 Percent Meal Consumed - Dinner: 50 Subjective Subjective Patient was seen & assessed and interval progress reviewed with treatment team nursing and social work. She continues to struggle with significant anxiety and restlessness including rocking in bed last evening crying overnight unconsolable throughout much of the day. She was able to shower this morning but then broke down in tears and was unable to tolerate even signing a release of information for social work to look into getting her a therapist. She reports her mood is "not good". And gets easily overwhelmed by any discussion of her differential diagnosis and potential treatments. However she is able to tolerate a longer discussion today regarding this. She is unsure if she feels any different since we stopped the Seroquel yesterday reporting that she feels things are not the same as yesterday. She still has a sense of "crawling out of my skin". She remains very overwhelmed about being in the hospital as her new job is supposed to start on October 12 but also agrees that she is unable to function at all and would not be able to function at home. She continues to have suicidal ideation due to feeling so overwhelmed. She does find propranolol helpful as well as Klonopin but feels the effects of medications wear off very quickly and becomes extremely tearful during our discussion requesting "anything else". Physical Exam Psychiatric Orientation: alert and oriented x 3 Apperance: appropriately dressed and appropriately groomed Eye Contact: + poor eye contact Motor Behavior: + psychomotor agitation (Pacing, restless, pulling at her hair) and + akathisia Speech: normal rate/rhythm/volume of speech Affect: + depressed affect, + anxious affect, + tearful affect, + labile affect and + irritable affect Mood: + depressed mood, + anxious mood and + irritable mood Thought Process: goal directed thought process and + perseveration Thought Content: reality based without delusions and + hopelessness Suicidal Thoughts: denies suicidal plan (on unit) and denies suicidal intent; + reports suicidal thoughts Homicidal Thoughts: denies homicidal thoughts Hallucinations: no auditory hallucinations and no visual hallucinations Cognition: attention grossly intact and language grossly intact Estimated Intelligence: consistent with education level Insight: + limited insight Judgement: + limited judgement Vital Signs (Past 24 Hours) Last Vital Signs Temp 36.9 C 10/06/21 06:00 Pulse 76 10/06/21 07:03 Resp 18 10/06/21 06:00 BP 116/78 10/06/21 07:03 Pulse Ox 97 10/06/21 06:00 O2 Del Method 10/06/21 06:00 Results & Data ([facility]) Current Inpatient Medications Current Inpatient Medications: Current Inpatient Medications Acetaminophen (Acetaminophen 325 Mg Tab) 650 mg PO Q4H PRN PRN Reason: Headache or Minor Fever Stop: 10/30/21 20:58 Al Hydrox/Mg Hydrox/Simethicone (Aluminum/Magnesium Susp 30 Ml Udc) 30 ml PO Q4H PRN PRN Reason: GI Upset Stop: 10/30/21 20:58 Benztropine Mesylate (Benztropine Mesylate 1 Mg Tab) 1 mg PO Q6 PRN PRN Reason: dystonia/thick tongue Stop: 10/30/21 21:01 Last Admin: 10/01/21 12:04 Dose: 1 mg Bismuth Subsalicylate (Bismuth Subsalicylate Liqd 236 Ml) 15 ml PO PRN PRN PRN Reason: Loose Stool Stop: 10/30/21 20:58 Clonazepam (Clonazepam 0.5 Mg Tab) 0.5 mg PO BIDM [facility] Stop: 11/02/21 17:44 Last Admin: 10/06/21 15:50 Dose: 0.5 mg Fluoxetine HCl (Fluoxetine Hcl 20 Mg Cap) 20 mg PO QAM [facility] Stop: 11/05/21 08:59 Last Admin: 10/06/21 08:43 Dose: 20 mg Hydrocortisone (Hydrocortisone 1% Crm 30 Gm Tube) 1 appln EXT BID PRN PRN Reason: affected areas Stop: 11/01/21 13:40 Last Admin: 10/06/21 09:58 Dose: 1 appln Hydroxyzine HCl (Hydroxyzine Hcl 25 Mg Tab) 50 mg PO HSZ PRN PRN Reason: Insomnia Stop: 10/30/21 20:58 Hydroxyzine HCl (Hydroxyzine Hcl 25 Mg Tab) 25 mg PO Q4H PRN PRN Reason: Anxiety Stop: 10/30/21 20:58 Last Admin: 10/06/21 13:21 Dose: 25 mg Levothyroxine Sodium (Levothyroxine Sodium 112 Mcg Tablet) 112 mcg PO DAILYBB [facility] Stop: 10/31/21 06:29 Last Admin: 10/06/21 08:42 Dose: 112 mcg Lorazepam (Lorazepam 0.5 Mg Tab) 0.5 mg PO DAILY PRN PRN Reason: Anxiety/Agitation Stop: 11/03/21 14:58 Last Admin: 10/06/21 09:57 Dose: 0.5 mg Magnesium Hydroxide (Magnesium Hydroxide Susp 30 Ml Udc) 30 ml PO DAILY PRN PRN Reason: Constipation Stop: 10/30/21 20:58 Miscellaneous (Remove Nicoderm Patch) 1 each N/A DAILY@0859 [facility] Stop: 11/04/21 08:58 Last Admin: 10/06/21 08:46 Dose: 1 each Neomycin/Polymyxin/Bacitracin (Neomycin/Polymyx/Bacitr Oint 15 Gm Tube) 1 appln EXT BID PRN PRN Reason: Skin Irritation Stop: 10/31/21 08:31 Last Admin: 10/06/21 09:57 Dose: 1 appln Nicotine (Nicotine 21 Mg/24 Hr Tdsy) 21 mg TD QAM [facility] Stop: 11/03/21 09:14 Last Admin: 10/06/21 08:42 Dose: 21 mg Nicotine Polacrilex (Nicotine Polacrilex 2 Mg Gum) 1 piece MT PRN PRN PRN Reason: Nicotine Withdrawal Stop: 10/30/21 20:58 Last Admin: 10/03/21 15:35 Dose: 1 piece Pravastatin Sodium (Pravastatin Sod 40 Mg Tab) 40 mg PO DAILY@1700 [facility] Stop: 10/31/21 16:59 Last Admin: 10/06/21 16:35 Dose: 40 mg Propranolol HCl (Propranolol Hcl 20 Mg Tab) 20 mg PO BID [facility] Stop: 11/04/21 20:59 Last Admin: 10/06/21 08:43 Dose: 20 mg Sodium Chloride (Sodium Chloride 0.65% Na Soln 45 Ml ([place])) 1 - 2 sprays NA PRN PRN PRN Reason: Nasal Dryness/Congestion Stop: 10/30/21 20:58 Trazodone HCl (Trazodone Hcl 100 Mg Tab) 100 mg PO HS [facility] Stop: 11/04/21 21:59 Last Admin: 10/05/21 20:16 Dose: 100 mg Mental Health & Subst Abuse Tx Psychiatrist Name of Psychiatrist: [facility] Psychiatrist's Date of Appointment with Psychiatrist: 10/09/21 Time of Appointment with Psychiatrist: 8am Psychiatric Appointment Comment: [address] [place], [place] Post Discharge Appointments Primary Care Physician Name Of Family Doctor: [facility] Date of Appointment with PCP: 10/12/21 Time of Appointment with PCP: 10:50am Provider Appointment Comment: [address], [place] [address]
[2021-10-06] MEDS: traZODone HCL 100 MG TAB PO SCH (21:16)
[2021-10-06] MEDS ORDERED: LITHIUM CARBONATE 300 MG TAB PO SCH (22:00)
[2021-10-07] MEDS: LEVOTHYROXINE SODIUM 112 MCG TABLET PO SCH (08:24)
[2021-10-07] MEDS: clonazePAM 0.5 MG TAB PO SCH ×2 (08:24→17:58)
[2021-10-07] MEDS: PROPRANOLOL HCL 20 MG TAB PO SCH ×2 (08:25→22:20)
[2021-10-07] MEDS: FLUoxetine HCL 20 MG CAP PO SCH (08:25)
[2021-10-07] MEDS: NICOTINE 21 MG/24 HR TDSY TD SCH (08:30)
[2021-10-07] MEDS: LORazepam 0.5 MG TAB PO PRN (09:38)
[2021-10-07] MEDS: hydrOXYzine HCl 25 MG TAB PO PRN ×2 (12:29→16:31)
[2021-10-07] MEDS: PRAVASTATIN SOD 40 MG TAB PO SCH (16:29)
--- NOTE | 2021-10-07 16:52 | Psychiatric Progress Note ---
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 MNPR due to extreme anxiety and inability to tolerate a roommate due to constant tearfulness with any conversations. 10/07/21: Remains very anxious with recurrent panic attacks, SI and severe depression, significant psychomotor agitation seems most consistent with aka thisia versus acute kristian with prominent irritability and mood lability vs BPAD mixed state. Akathisia seems to be slightly improved today. Tolerated initiation dose of [place] and EKG done given her age and reviewed with normal QTc and sinus rhythm. She agrees to titration of [place]. (1) Bipolar disorder: Plan 10/07/21: Titrate [place] to 300mg BID. EKG done and normal. 10/06/21: Start [place] carbonate 300mg qhs 10/05/21: Increase propranolol to 20mg BID, taper fluoxetine to 20mg qd due to concern for activation. Discontinue seroquel as seems to be worsening akathisia and schedule trazodone for sleep. 10/04/21: Added propranolol 10mg BID for akathisia. Continue with fluoxetine, Klonopin, seroquel. Additional ativan dose ordered given her level of acute distress. 10/03/21: Titrate Seroquel 200 mg. Increase Klonopin to 0.5 mg BIDM. 10/02/21: Titrate hx Seroquel 150 mg. Change Klonopin from prn to standing. Rash appears stress induced rather than generalized drug rash but will follow. Hydrocortisone cream. 10/01/21: The patient was admitted to the [facility] (community hospital inpatient mental health unit) on q15 min checks (behavioral with suicide precautions) for safety. The patient will participate in group, recreational, and milieu therapies and will be offered additional individual and family sessions as clinically appropriate. Risks/benefits/alternatives were reviewed re: antipsychotics for mood and/or psychosis. Discussion included but was not limited to metabolic side effects, risks of TD and suicidal thoughts. There were no abnormal motor movements at baseline. Fasting glucose and lipid panel on file. The patient agrees to a trial of Seroquel 100 mg this hs in place of Risperdal and 25 mg q 6 prn. Patient is having side effects to Risperdal so will not cross taper, dyskinesia unlikely as replacing with Seroquel. Inventory Assets Strengths: family support, future focus re: employment Needs: improve structure of day, outpatient therapy Suicide Risk Level Suicide Risk Level: High-Moderate (q15 min suicide checks) Suicide Risk Level Comments: continues to have depression with SI and severe anxiety with panic attacks but able to safety contract and agrees to go to staff if feeling unsafe or if SI intensifies. Risk Factors Assessment Do You Have Access To A Gun?: No Mental Health Diagnoses: Yes Previous Attempt: Yes Previous Psychiatric Hospitalization: Yes Protective Factors Assessment Employed: Yes ([employer], Start 10/12/21) Supportive Family: Yes Interval History Identifying Information CEDRIC MYERS is a 56-year-old F who currently lives in [facility] with her mother and step-father, has a history of inpatient [facility] July 2021, and was admitted on 09/30/21 20:59 on a 201 voluntary commitment for inability to function. Chief Complaint "All I've been doing is sleeping". Review of Systems Sleep Information Total Hours of Sleep: 7 Sleep Comments: became anxious around 0400. Received 25mg Vistaril which was somewhat effective Meal Information Percent Meal Consumed - Breakfast: 85 Percent Meal Consumed - Lunch: 0 Percent Meal Consumed - Dinner: 80 Nutrition Comment: pt sleeping - meal saved in fridge Subjective Subjective Patient was seen & assessed and interval progress reviewed with treatment team nursing and social work. Remains easily irritable and tearful with limited ability to engage with anyone without tearfulness. Feels her mood is "ok" today and that the sensation of needing to crawl of her skin is "a little better" today. She spent the majority of the day in bed, was finally able to tolerate a brief conversation with social work to sign some releases of information. Allowed EKG. Reviewed these results with her. She remains very anxious about work and missing the start but also agrees she is in no position to work or leave the hospital. Made a goal of trying to go to a few groups tomorrow. Physical Exam Psychiatric Orientation: alert and oriented x 3 Apperance: appropriately dressed and appropriately groomed Eye Contact: + fair eye contact Motor Behavior: + psychomotor agitation (restless, pulling at her hair) and + akathisia; n tremor Speech: normal rate/rhythm/volume of speech (continues to have odd humming when not speaking) Affect: + depressed affect, + anxious affect, + tearful affect, + labile affect and + irritable affect Mood: + depressed mood, + anxious mood and + irritable mood Thought Process: + perseveration Thought Content: reality based without delusions and + hopelessness Suicidal Thoughts: denies suicidal plan (on unit) and denies suicidal intent; + reports suicidal thoughts Homicidal Thoughts: denies homicidal thoughts Hallucinations: no auditory hallucinations and no visual hallucinations Cognition: language grossly intact; + attention not intact Estimated Intelligence: consistent with education level Insight: + limited insight Judgement: + limited judgement Vital Signs (Past 24 Hours) Last Vital Signs Temp 36.7 C 10/07/21 06:00 Pulse 68 10/07/21 06:54 Resp 16 10/07/21 06:00 BP 110/74 10/07/21 06:54 Pulse Ox 97 10/06/21 06:00 O2 Del Method 10/06/21 06:00 Results & Data ([facility]) Current Inpatient Medications Current Inpatient Medications: Current Inpatient Medications Acetaminophen (Acetaminophen 325 Mg Tab) 650 mg PO Q4H PRN PRN Reason: Headache or Minor Fever Stop: 10/30/21 20:58 Al Hydrox/Mg Hydrox/Simethicone (Aluminum/Magnesium Susp 30 Ml Udc) 30 ml PO Q4H PRN PRN Reason: GI Upset Stop: 10/30/21 20:58 Benztropine Mesylate (Benztropine Mesylate 1 Mg Tab) 1 mg PO Q6 PRN PRN Reason: dystonia/thick tongue Stop: 10/30/21 21:01 Last Admin: 10/01/21 12:04 Dose: 1 mg Bismuth Subsalicylate (Bismuth Subsalicylate Liqd 236 Ml) 15 ml PO PRN PRN PRN Reason: Loose Stool Stop: 10/30/21 20:58 Clonazepam (Clonazepam 0.5 Mg Tab) 0.5 mg PO BIDM [place] Stop: 11/02/21 17:44 Last Admin: 10/07/21 08:24 Dose: 0.5 mg Fluoxetine HCl (Fluoxetine Hcl 20 Mg Cap) 20 mg PO QAM [place] Stop: 11/05/21 08:59 Last Admin: 10/07/21 08:25 Dose: 20 mg Hydrocortisone (Hydrocortisone 1% Crm 30 Gm Tube) 1 appln EXT BID PRN PRN Reason: affected areas Stop: 11/01/21 13:40 Last Admin: 10/06/21 09:58 Dose: 1 appln Hydroxyzine HCl (Hydroxyzine Hcl 25 Mg Tab) 50 mg PO HSZ PRN PRN Reason: Insomnia Stop: 10/30/21 20:58 Hydroxyzine HCl (Hydroxyzine Hcl 25 Mg Tab) 25 mg PO Q4H PRN PRN Reason: Anxiety Stop: 10/30/21 20:58 Last Admin: 10/07/21 16:31 Dose: 25 mg Levothyroxine Sodium (Levothyroxine Sodium 112 Mcg Tablet) [address] [facility] Stop: 10/31/21 06:29 Last Admin: 10/07/21 08:24 Dose: 112 mcg [place] Carbonate ([place] Carbonate 300 Mg Tab) 300 mg PO HS [place] Stop: 11/05/21 21:59 Last Admin: 10/06/21 21:16 Dose: 300 mg Lorazepam (Lorazepam 0.5 Mg Tab) 0.5 mg PO DAILY PRN PRN Reason: Anxiety/Agitation Stop: 11/03/21 14:58 Last Admin: 10/07/21 09:38 Dose: 0.5 mg Magnesium Hydroxide (Magnesium Hydroxide Susp 30 Ml Udc) 30 ml PO DAILY PRN PRN Reason: Constipation Stop: 10/30/21 20:58 Miscellaneous (Remove Nicoderm Patch) 1 each N/A DAILY@0859 [facility] Stop: 11/04/21 08:58 Last Admin: 10/07/21 08:24 Dose: 1 each Neomycin/Polymyxin/Bacitracin (Neomycin/Polymyx/Bacitr Oint 15 Gm Tube) 1 appln EXT BID PRN PRN Reason: Skin Irritation Stop: 10/31/21 08:31 Last Admin: 10/06/21 09:57 Dose: 1 appln Nicotine (Nicotine 21 Mg/24 Hr Tdsy) [address] [facility] Stop: 11/03/21 09:14 Last Admin: 10/07/21 08:30 Dose: 21 mg Nicotine Polacrilex (Nicotine Polacrilex 2 Mg Gum) 1 piece MT PRN PRN PRN Reason: Nicotine Withdrawal Stop: 10/30/21 20:58 Last Admin: 10/03/21 15:35 Dose: 1 piece Pravastatin Sodium (Pravastatin Sod 40 Mg Tab) 40 mg PO DAILY@1700 [place] Stop: 10/31/21 16:59 Last Admin: 10/07/21 16:29 Dose: 40 mg Propranolol HCl (Propranolol Hcl 20 Mg Tab) 20 mg PO BID [place] Stop: 11/04/21 20:59 Last Admin: 10/07/21 08:25 Dose: 20 mg Sodium Chloride (Sodium Chloride 0.65% Na Soln 45 Ml ([place])) 1 - 2 sprays NA PRN PRN PRN Reason: Nasal Dryness/Congestion Stop: 10/30/21 20:58 Trazodone HCl (Trazodone Hcl 100 Mg Tab) 100 mg PO HS [place] Stop: 11/04/21 21:59 Last Admin: 10/06/21 21:16 Dose: 100 mg Mental Health & Subst Abuse Tx Psychiatrist Name of Psychiatrist: John Pena Psychiatrist's Date of Appointment with Psychiatrist: 10/23/21 Time of Appointment with Psychiatrist: 10:30 AM Psychiatric Appointment Comment: [address] [place], [place] Post Discharge Appointments Primary Care Physician Name Of Family Doctor: [facility] Date of Appointment with PCP: 10/12/21 Time of Appointment with PCP: 10:50am Provider Appointment Comment: [address] [facility], [place] [address]
[2021-10-07] MEDS: LITHIUM CARBONATE 300 MG TAB PO SCH (22:19)
[2021-10-07] MEDS: traZODone HCL 100 MG TAB PO SCH (22:20)
[2021-10-08] MEDS: NICOTINE 21 MG/24 HR TDSY TD SCH (08:02)
[2021-10-08] MEDS: FLUoxetine HCL 20 MG CAP PO SCH (08:02)
[2021-10-08] MEDS: LITHIUM CARBONATE 300 MG TAB PO SCH ×2 (08:03→21:11)
[2021-10-08] MEDS: LEVOTHYROXINE SODIUM 112 MCG TABLET PO SCH (08:03)
[2021-10-08] MEDS: clonazePAM 0.5 MG TAB PO SCH ×2 (08:04→16:18)
[2021-10-08] MEDS: PROPRANOLOL HCL 20 MG TAB PO SCH ×2 (08:22→21:11)
--- NOTE | 2021-10-08 08:38 | Psychiatric Progress Note ---
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 MNPR due to extreme anxiety and inability to tolerate a roommate due to constant tearfulness with any conversations. 10/08/21: Remains very anxious with recurrent panic attacks, SI and severe depression. Akathisia seems to have improved now that she has been off of all antipsychotics. Tolerating the lithium. He daily will attempt to discontinue the additional as needed Ativan dose in the next few days minimize excessive benzodiazepine use. If she remains unable to function could consider increasing Klonopin but this will make a taper in the future more difficult will interfere with her goals of driving to work and being independent. (1) Bipolar disorder: Plan 10/08/21: Continue with current medications and treatment plan. 10/07/21: Titrate [place] to 300mg BID. EKG done and normal. 10/06/21: Start [place] carbonate 300mg qhs 10/05/21: Increase propranolol to 20mg BID, taper fluoxetine to 20mg qd due to concern for activation. Discontinue seroquel as seems to be worsening akathisia and schedule trazodone for sleep. 10/04/21: Added propranolol 10mg BID for akathisia. Continue with fluoxetine, Klonopin, seroquel. Additional ativan dose ordered given her level of acute distress. 10/03/21: Titrate Seroquel 200 mg. Increase Klonopin to 0.5 mg BIDM. 10/02/21: Titrate hx Seroquel 150 mg. Change Klonopin from prn to standing. Rash appears stress induced rather than generalized drug rash but will follow. Hydrocortisone cream. 10/01/21: The patient was admitted to the [facility] ([facility] mental health unit) on q15 min checks (behavioral with suicide precautions) for safety. The patient will participate in group, recreational, and milieu therapies and will be offered additional individual and family sessions as clinically appropriate. Risks/benefits/alternatives were reviewed re: antipsychotics for mood and/or psychosis. Discussion included but was not limited to metabolic side effects, risks of TD and suicidal thoughts. There were no abnormal motor movements at baseline. Fasting glucose and lipid panel on file. The patient agrees to a trial of Seroquel 100 mg this hs in place of Risperdal and 25 mg q 6 prn. Patient is having side effects to Risperdal so will not cross taper, dyskinesia unlikely as replacing with Seroquel. Inventory Assets Strengths: family support, future focus re: employment Needs: improve structure of day, outpatient therapy Suicide Risk Level Suicide Risk Level: High-Moderate (q15 min suicide checks) Suicide Risk Level Comments: continues to have depression with SI and severe anxiety with panic attacks but able to safety contract and agrees to go to staff if feeling unsafe or if SI intensifies. Risk Factors Assessment Do You Have Access To A Gun?: No Mental Health Diagnoses: Yes Previous Attempt: Yes Previous Psychiatric Hospitalization: Yes Protective Factors Assessment Employed: Yes ([employer], Start 10/12/21) Supportive Family: Yes Interval History Identifying Information CEDRIC MYERS is a 56-year-old F who currently lives in [facility] with her mother and step-father, has a history of inpatient [facility] July 2021, and was admitted on 09/30/21 20:59 on a 201 voluntary commitment for inability to function. Chief Complaint "I am alright". Review of Systems Sleep Information Total Hours of Sleep: 6.5 Sleep Comments: became anxious around 0400. Received 25mg Vistaril which was somewhat effective Meal Information Percent Meal Consumed - Breakfast: 85 Percent Meal Consumed - Lunch: 0 Percent Meal Consumed - Dinner: 80 Nutrition Comment: pt sleeping - meal saved in fridge Subjective Subjective Patient was seen & assessed and interval progress reviewed with treatment team nursing and social work. Only out of her room for dinner. Still perseverative about work and start date. The afternoon he had significant tearfulness and inability to tolerate nonpharmacological behavioral strategies to cope with anxiety requiring as needed Ativan dose. Overall however she feels that things are a tiny bit better today stating her mood is "alright" that her sleep was good and that her appetite is okay. She continues to feel her anxiety is very bad she is particularly worried about her finances and car payments that is upcoming at the end of the month. She denies any side effects from lithium feels the sense of internal restlessness/akathisia is improving significantly. Physical Exam Psychiatric Orientation: alert and oriented x 3 Apperance: appropriately dressed and appropriately groomed Eye Contact: + fair eye contact Motor Behavior: no abnormal motor movements; n tremor Speech: normal rate/rhythm/volume of speech (continues to have odd humming when not speaking) Affect: + depressed affect, + anxious affect and + tearful affect Mood: + depressed mood and + anxious mood Thought Process: + perseveration Thought Content: reality based without delusions and + hopelessness Suicidal Thoughts: denies suicidal plan (on unit) and denies suicidal intent; + reports suicidal thoughts Homicidal Thoughts: denies homicidal thoughts Hallucinations: no auditory hallucinations and no visual hallucinations Cognition: language grossly intact; + attention not intact Estimated Intelligence: consistent with education level Insight: + limited insight Judgement: + limited judgement Vital Signs (Past 24 Hours) Last Vital Signs Temp 36.4 C 10/08/21 06:00 Pulse 77 10/08/21 06:46 Resp 16 10/08/21 06:00 BP 118/78 10/08/21 08:21 Pulse Ox 97 10/06/21 06:00 O2 Del Method 10/06/21 06:00 Results & Data ([facility]) Current Inpatient Medications Current Inpatient Medications: Current Inpatient Medications Acetaminophen (Acetaminophen 325 Mg Tab) 650 mg PO Q4H PRN PRN Reason: Headache or Minor Fever Stop: 10/30/21 20:58 Al Hydrox/Mg Hydrox/Simethicone (Aluminum/Magnesium Susp 30 Ml Udc) 30 ml PO Q4H PRN PRN Reason: GI Upset Stop: 10/30/21 20:58 Benztropine Mesylate (Benztropine Mesylate 1 Mg Tab) 1 mg PO Q6 PRN PRN Reason: dystonia/thick tongue Stop: 10/30/21 21:01 Last Admin: 10/01/21 12:04 Dose: 1 mg Bismuth Subsalicylate (Bismuth Subsalicylate Liqd 236 Ml) 15 ml PO PRN PRN PRN Reason: Loose Stool Stop: 10/30/21 20:58 Clonazepam (Clonazepam 0.5 Mg Tab) 0.5 mg PO BIDM [place] Stop: 11/02/21 17:44 Last Admin: 10/08/21 08:04 Dose: 0.5 mg Fluoxetine HCl (Fluoxetine Hcl 20 Mg Cap) 20 mg PO QAM [facility] Stop: 11/05/21 08:59 Last Admin: 10/08/21 08:02 Dose: 20 mg Hydrocortisone (Hydrocortisone 1% Crm 30 Gm Tube) 1 appln EXT BID PRN PRN Reason: affected areas Stop: 11/01/21 13:40 Last Admin: 10/06/21 09:58 Dose: 1 appln Hydroxyzine HCl (Hydroxyzine Hcl 25 Mg Tab) 50 mg PO HSZ PRN PRN Reason: Insomnia Stop: 10/30/21 20:58 Hydroxyzine HCl (Hydroxyzine Hcl 25 Mg Tab) 25 mg PO Q4H PRN PRN Reason: Anxiety Stop: 10/30/21 20:58 Last Admin: 10/07/21 16:31 Dose: 25 mg Levothyroxine Sodium (Levothyroxine Sodium 112 Mcg Tablet) 112 mcg PO DAILYBB [facility] Stop: 10/31/21 06:29 Last Admin: 10/08/21 08:03 Dose: 112 mcg [place] Carbonate ([place] Carbonate 300 Mg Tab) 300 mg PO BID [facility] Stop: 11/06/21 20:59 Last Admin: 10/08/21 08:03 Dose: 300 mg Lorazepam (Lorazepam 0.5 Mg Tab) 0.5 mg PO DAILY PRN PRN Reason: Anxiety/Agitation Stop: 11/03/21 14:58 Last Admin: 10/07/21 09:38 Dose: 0.5 mg Magnesium Hydroxide (Magnesium Hydroxide Susp 30 Ml Udc) 30 ml PO DAILY PRN PRN Reason: Constipation Stop: 10/30/21 20:58 Miscellaneous (Remove Nicoderm Patch) 1 each N/A DAILY@0859 [facility] Stop: 11/04/21 08:58 Last Admin: 10/08/21 08:01 Dose: 1 each Neomycin/Polymyxin/Bacitracin (Neomycin/Polymyx/Bacitr Oint 15 Gm Tube) 1 appln EXT BID PRN PRN Reason: Skin Irritation Stop: 10/31/21 08:31 Last Admin: 10/06/21 09:57 Dose: 1 appln Nicotine (Nicotine 21 Mg/24 Hr Tdsy) 21 mg TD QAM [facility] Stop: 11/03/21 09:14 Last Admin: 10/08/21 08:02 Dose: 21 mg Nicotine Polacrilex (Nicotine Polacrilex 2 Mg Gum) 1 piece MT PRN PRN PRN Reason: Nicotine Withdrawal Stop: 10/30/21 20:58 Last Admin: 10/03/21 15:35 Dose: 1 piece Pravastatin Sodium (Pravastatin Sod 40 Mg Tab) 40 mg PO DAILY@1700 [place] Stop: 10/31/21 16:59 Last Admin: 10/07/21 16:29 Dose: 40 mg Propranolol HCl (Propranolol Hcl 20 Mg Tab) 20 mg PO BID [place] Stop: 11/04/21 20:59 Last Admin: 10/08/21 08:22 Dose: 20 mg Sodium Chloride (Sodium Chloride 0.65% Na Soln 45 Ml ([place])) 1 - 2 sprays NA PRN PRN PRN Reason: Nasal Dryness/Congestion Stop: 10/30/21 20:58 Trazodone HCl (Trazodone Hcl 100 Mg Tab) 100 mg PO HS [place] Stop: 11/04/21 21:59 Last Admin: 10/07/21 22:20 Dose: 100 mg Mental Health & Subst Abuse Tx Psychiatrist Name of Psychiatrist: John Pena Psychiatrist's Date of Appointment with Psychiatrist: 10/23/21 Time of Appointment with Psychiatrist: 10:30 AM Psychiatric Appointment Comment: [address] [place], [place] Post Discharge Appointments Primary Care Physician Name Of Family Doctor: [facility] Date of Appointment with PCP: 10/12/21 Time of Appointment with PCP: 10:50am Provider Appointment Comment: [address] [facility], [place] [address]
[2021-10-08] MEDS: LORazepam 0.5 MG TAB PO PRN (13:15)
[2021-10-08] MEDS: NEOMYCIN/POLYMYX/BACITR OINT 15 GM TUBE EXT PRN (16:04)
[2021-10-08] MEDS: PRAVASTATIN SOD 40 MG TAB PO SCH (16:18)
[2021-10-08] MEDS: traZODone HCL 100 MG TAB PO SCH (21:10)
--- NOTE | 2021-10-09 05:31 | Electrocardiogram Report ---
Test Reason : Blood Pressure : / mmHG Vent. Rate : 064 BPM Atrial Rate : 064 BPM P-R Int : 176 ms QRS Dur : 092 ms QT Int : 394 ms P-R-T Axes : 071 072 070 degrees QTc Int : 406 ms Normal sinus rhythm Normal ECG No previous ECG available for comparison Confirmed by Garrett Smith ([id number]) on 10/09/2021 5:31:31 AM Referred By: REFERRED SELF Confirmed By:Garrett Smith
[2021-10-09] MEDS: LEVOTHYROXINE SODIUM 112 MCG TABLET PO SCH (07:48)
[2021-10-09] MEDS: LITHIUM CARBONATE 300 MG TAB PO SCH ×2 (07:48→20:35)
[2021-10-09] MEDS: clonazePAM 0.5 MG TAB PO SCH ×2 (07:48→17:29)
[2021-10-09] MEDS: NICOTINE 21 MG/24 HR TDSY TD SCH (07:48)
[2021-10-09] MEDS: FLUoxetine HCL 20 MG CAP PO SCH (07:49)
[2021-10-09] MEDS: PROPRANOLOL HCL 20 MG TAB PO SCH ×2 (07:49→20:36)
[2021-10-09] MEDS: LORazepam 0.5 MG TAB PO PRN (11:25)
--- NOTE | 2021-10-09 16:26 | Psychiatric Progress Note ---
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 MNPR due to extreme anxiety and inability to tolerate a roommate due to constant tearfulness with any conversations. 10/09/21: Remains completely overwhelmed by anxiety and tearfulness and inability to tolerate any prolonged discussions about treatment nor able to attempt to use any coping skills. Akathisia has significantly improved now that she has been off of all antipsychotics. Tolerating the lithium and willing to increase this. As restlessness has improved clinical picture appears more like severe depression with ruminative anxiety but could be mixed picture and seems to be responding well to lithium so far. Attempt to discontinue the additional as nee ded Ativan dose in the next few days to minimize excessive benzodiazepine use but remains available for severe breakthrough panic attacks symptoms. If she remains unable to function could consider increasing Klonopin but this will make a taper in the future more difficult will interfere with her goals of driving to work and being independent. (1) Bipolar disorder: Plan 10/09/21: Increase [place] to 300mg qAM & 600mg qhs. Continue with other medications. Consider adjustment of fluoxetine if continues to present as more severe depression. 10/08/21: Continue with current medications and treatment plan. 10/07/21: Titrate [place] to 300mg BID. EKG done and normal. 10/06/21: Start [place] carbonate 300mg qhs 10/05/21: Increase propranolol to 20mg BID, taper fluoxetine to 20mg qd due to concern for activation. Discontinue seroquel as seems to be worsening akathisia and schedule trazodone for sleep. 10/04/21: Added propranolol 10mg BID for akathisia. Continue with fluoxetine, Klonopin, seroquel. Additional ativan dose ordered given her level of acute distress. 10/03/21: Titrate Seroquel 200 mg. Increase Klonopin to 0.5 mg BIDM. 10/02/21: Titrate hx Seroquel 150 mg. Change Klonopin from prn to standing. Rash appears stress induced rather than generalized drug rash but will follow. Hydrocortisone cream. 10/01/21: The patient was admitted to the [facility] ([facility] inpatient mental health unit) on q15 min checks (behavioral with suicide precautions) for safety. The patient will participate in group, recreational, and milieu therapies and will be offered additional individual and family sessions as clinically appropriate. Risks/benefits/alternatives were reviewed re: antipsychotics for mood and/or psychosis. Discussion included but was not limited to metabolic side effects, risks of TD and suicidal thoughts. There were no abnormal motor movements at baseline. Fasting glucose and lipid panel on file. The patient agrees to a trial of Seroquel 100 mg this hs in place of Risperdal and 25 mg q 6 prn. Patient is having side effects to Risperdal so will not cross taper, dyskinesia unlikely as replacing with Seroquel. Inventory Assets Strengths: family support, future focus re: employment Needs: improve structure of day, outpatient therapy Suicide Risk Level Suicide Risk Level: High-Moderate (q15 min suicide checks) Suicide Risk Level Comments: continues to have depression with intermittent SI and severe anxiety with panic attacks but able to safety contract and agrees to go to staff if feeling unsafe or if SI intensifies. Risk Factors Assessment Do You Have Access To A Gun?: No Mental Health Diagnoses: Yes Previous Attempt: Yes Previous Psychiatric Hospitalization: Yes Protective Factors Assessment Employed: Yes ([employer], Start 10/12/21) Supportive Family: Yes Interval History Identifying Information CEDRIC MYERS is a 56-year-old F who currently lives in [facility] with her mother and step-father, has a history of inpatient [facility] [facility] July 2021, and was admitted on 09/30/21 20:59 on a 201 voluntary commitment for inability to function. Chief Complaint "I just don't know". Review of Systems Sleep Information Total Hours of Sleep: 6 Sleep Comments: became anxious around 0400. Received 25mg Vistaril which was somewhat effective Meal Information Percent Meal Consumed - Breakfast: 100 Percent Meal Consumed - Lunch: 70 Percent Meal Consumed - Dinner: 75 Nutrition Comment: pt sleeping - meal saved in fridge Subjective Subjective Patient was seen & assessed and interval progress reviewed with treatment team nursing and social work. Had a slightly better morning including attending some groups and tolerating an intrusive peer however by the afternoon became very overwhelmed with periods of tearfulness and unable to tolerate more prolonged discussions about treatment or attend groups. Continues to be isolative to her room from most all of the day laying in bed and during interactions with providers social media specialist RNs quickly becomes extremely tearful. Very focused on medication being the only thing to help and struggling to utilize any other types of coping strategies even with extensive support. Ongoing ruminative anxiety. Today can speak to feeling overwhelmed by her finances and needing to start her job however at the same time acknowledges she is unable to even function in her current state. Discussed possibility of trying to have a family meeting may be on Tuesday she will discuss this further with social work tomorrow. She denies any side effects from lithium or her other medications. No longer has the sense of internal restlessness. Reviewed increasing her lithium at bedtime which she agrees to. Became very tearful at the end of my visit again ruminating about not wanting to be in the hospital but also does not want to sign a 72-hour notice and agrees she cannot function at home seemingly paralyzed by her severe anxiety. Physical Exam Psychiatric Orientation: alert and oriented x 3 Apperance: appropriately dressed and appropriately groomed Eye Contact: + fair eye contact Motor Behavior: no abnormal motor movements; n tremor Speech: normal rate/rhythm/volume of speech (continues to have odd humming when not speaking) Affect: + depressed affect, + anxious affect, + tearful affect and + labile affect Mood: + depressed mood and + anxious mood Thought Process: goal directed thought process and + perseveration Thought Content: reality based without delusions and + hopelessness Suicidal Thoughts: denies suicidal thoughts Homicidal Thoughts: denies homicidal thoughts Hallucinations: no auditory hallucinations and no visual hallucinations Cognition: language grossly intact; + attention not intact Estimated Intelligence: consistent with education level Insight: + limited insight Judgement: + limited judgement Vital Signs (Past 24 Hours) Last Vital Signs Temp 36.9 C 10/09/21 06:00 Pulse 86 10/09/21 06:34 Resp 16 10/09/21 06:00 BP 106/84 10/09/21 06:34 Pulse Ox 98 10/09/21 06:00 O2 Del Method 10/09/21 06:00 Results & Data ([facility]) Current Inpatient Medications Current Inpatient Medications: Current Inpatient Medications Acetaminophen (Acetaminophen 325 Mg Tab) 650 mg PO Q4H PRN PRN Reason: Headache or Minor Fever Stop: 10/30/21 20:58 Al Hydrox/Mg Hydrox/Simethicone (Aluminum/Magnesium Susp 30 Ml Udc) 30 ml PO Q4H PRN PRN Reason: GI Upset Stop: 10/30/21 20:58 Benztropine Mesylate (Benztropine Mesylate 1 Mg Tab) 1 mg PO Q6 PRN PRN Reason: dystonia/thick tongue Stop: 10/30/21 21:01 Last Admin: 10/01/21 12:04 Dose: 1 mg Bismuth Subsalicylate (Bismuth Subsalicylate Liqd 236 Ml) 15 ml PO PRN PRN PRN Reason: Loose Stool Stop: 10/30/21 20:58 Clonazepam (Clonazepam 0.5 Mg Tab) 0.5 mg PO BIDM [facility] Stop: 11/02/21 17:44 Last Admin: 10/09/21 07:48 Dose: 0.5 mg Fluoxetine HCl (Fluoxetine Hcl 20 Mg Cap) 20 mg PO QAM [facility] Stop: 11/05/21 08:59 Last Admin: 10/09/21 07:49 Dose: 20 mg Hydrocortisone (Hydrocortisone 1% Crm 30 Gm Tube) 1 appln EXT BID PRN PRN Reason: affected areas Stop: 11/01/21 13:40 Last Admin: 10/06/21 09:58 Dose: 1 appln Hydroxyzine HCl (Hydroxyzine Hcl 25 Mg Tab) 50 mg PO HSZ PRN PRN Reason: Insomnia Stop: 10/30/21 20:58 Hydroxyzine HCl (Hydroxyzine Hcl 25 Mg Tab) 25 mg PO Q4H PRN PRN Reason: Anxiety Stop: 10/30/21 20:58 Last Admin: 10/07/21 16:31 Dose: 25 mg Levothyroxine Sodium (Levothyroxine Sodium 112 Mcg Tablet) 112 mcg PO DAILYBB [facility] Stop: 10/31/21 06:29 Last Admin: 10/09/21 07:48 Dose: 112 mcg [place] Carbonate ([place] Carbonate 300 Mg Tab) 300 mg PO BID [place] Stop: 11/06/21 20:59 Last Admin: 10/09/21 07:48 Dose: 300 mg Lorazepam (Lorazepam 0.5 Mg Tab) 0.5 mg PO DAILY PRN PRN Reason: Anxiety/Agitation Stop: 11/03/21 14:58 Last Admin: 10/09/21 11:25 Dose: 0.5 mg Magnesium Hydroxide (Magnesium Hydroxide Susp 30 Ml Udc) 30 ml PO DAILY PRN PRN Reason: Constipation Stop: 10/30/21 20:58 Miscellaneous (Remove Nicoderm Patch) 1 each N/A DAILY@0859 [facility] Stop: 11/04/21 08:58 Last Admin: 10/09/21 07:49 Dose: 1 each Neomycin/Polymyxin/Bacitracin (Neomycin/Polymyx/Bacitr Oint 15 Gm Tube) 1 appln EXT BID PRN PRN Reason: Skin Irritation Stop: 10/31/21 08:31 Last Admin: 10/08/21 16:04 Dose: 1 appln Nicotine (Nicotine 21 Mg/24 Hr Tdsy) 21 mg TD QAM [facility] Stop: 11/03/21 09:14 Last Admin: 10/09/21 07:48 Dose: 21 mg Nicotine Polacrilex (Nicotine Polacrilex 2 Mg Gum) 1 piece MT PRN PRN PRN Reason: Nicotine Withdrawal Stop: 10/30/21 20:58 Last Admin: 10/03/21 15:35 Dose: 1 piece Pravastatin Sodium (Pravastatin Sod 40 Mg Tab) 40 mg PO DAILY@1700 [facility] Stop: 10/31/21 16:59 Last Admin: 10/08/21 16:18 Dose: 40 mg Propranolol HCl (Propranolol Hcl 20 Mg Tab) 20 mg PO BID [facility] Stop: 11/04/21 20:59 Last Admin: 10/09/21 07:49 Dose: 20 mg Sodium Chloride (Sodium Chloride 0.65% Na Soln 45 Ml ([place])) 1 - 2 sprays NA PRN PRN PRN Reason: Nasal Dryness/Congestion Stop: 10/30/21 20:58 Trazodone HCl (Trazodone Hcl 100 Mg Tab) 100 mg PO HS [facility] Stop: 11/04/21 21:59 Last Admin: 10/08/21 21:10 Dose: 100 mg Mental Health & Subst Abuse Tx Psychiatrist Name of Psychiatrist: John Pena Psychiatrist's Date of Appointment with Psychiatrist: 10/23/21 Time of Appointment with Psychiatrist: 10:30 AM Psychiatric Appointment Comment: [address] [place], [place] Therapist Name of Therapist: Referral sent to Dr. Re[facility] Post Discharge Appointments Primary Care Physician Name Of Family Doctor: [facility] Date of Appointment with PCP: 10/26/21 Time of Appointment with PCP: 10:50am Provider Appointment Comment: [address] [facility], [place] [address]
[2021-10-09] MEDS: PRAVASTATIN SOD 40 MG TAB PO SCH (17:29)
[2021-10-09] MEDS: traZODone HCL 100 MG TAB PO SCH (20:35)
[2021-10-10] MEDS: clonazePAM 0.5 MG TAB PO SCH ×2 (07:57→16:49)
[2021-10-10] MEDS: LEVOTHYROXINE SODIUM 112 MCG TABLET PO SCH (07:57)
[2021-10-10] MEDS: LITHIUM CARBONATE 300 MG TAB PO SCH ×2 (07:57→21:34)
[2021-10-10] MEDS: FLUoxetine HCL 20 MG CAP PO SCH (07:58)
[2021-10-10] MEDS: PROPRANOLOL HCL 20 MG TAB PO SCH ×2 (07:59→21:34)
[2021-10-10] MEDS: NICOTINE 21 MG/24 HR TDSY TD SCH (07:59)
[2021-10-10] MEDS: LORazepam 0.5 MG TAB PO PRN (12:40)
--- NOTE | 2021-10-10 14:04 | Psychiatric Progress Note ---
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 MNPR due to extreme anxiety and inability to tolerate a roommate due to constant tearfulness with any conversations. 10/10/21: Remains completely overwhelmed by anxiety and tearfulness and inability to tolerate any prolonged discussions about treatment nor able to attempt to use any coping skills. Minimal change. (1) Bipolar disorder: Plan 10/10/21: continue current meds and treatment plan. 10/09/21: Increase [place] to 300mg qAM & 600mg qhs. Continue with other medications. Consider adjustment of fluoxetine if continues to present as more severe depression. 10/08/21: Continue with current medications and treatment plan. 10/07/21: Titrate [place] to 300mg BID. EKG done and normal. 10/06/21: Start [place] carbonate 300mg qhs 10/05/21: Increase propranolol to 20mg BID, taper fluoxetine to 20mg qd due to concern for activation. Discontinue seroquel as seems to be worsening akathisia and schedule trazodone for sleep. 10/04/21: Added propranolol 10mg BID for akathisia. Continue with fluoxetine, Klonopin, seroquel. Additional ativan dose ordered given her level of acute distress. 10/03/21: Titrate Seroquel 200 mg. Increase Klonopin to 0.5 mg BIDM. 10/02/21: Titrate hx Seroquel 150 mg. Change Klonopin from prn to standing. Rash appears stress induced rather than generalized drug rash but will follow. Hydrocortisone cream. 10/01/21: The patient was admitted to [facility] ([facility] inpatient mental health unit) on q15 min checks (behavioral with suicide precautions) for safety. The patient will participate in group, recreational, and milieu therapies and will be offered additional individual and family sessions as clinically appropriate. Risks/benefits/alternatives were reviewed re: antipsychotics for mood and/or psychosis. Discussion included but was not limited to metabolic side effects, risks of TD and suicidal thoughts. There were no abnormal motor movements at baseline. Fasting glucose and lipid panel on file. The patient agrees to a trial of Seroquel 100 mg this hs in place of Risperdal and 25 mg q 6 prn. Patient is having side effects to Risperdal so will not cross taper, dyskinesia unlikely as replacing with Seroquel. Inventory Assets Strengths: family support, future focus re: employment Needs: improve structure of day, outpatient therapy Suicide Risk Level Suicide Risk Level: High-Moderate (q15 min suicide checks) Suicide Risk Level Comments: continues to have depression with intermittent SI and severe anxiety with panic attacks but able to safety contract and agrees to go to staff if feeling unsafe or if SI intensifies. Risk Factors Assessment Do You Have Access To A Gun?: No Mental Health Diagnoses: Yes Previous Attempt: Yes Previous Psychiatric Hospitalization: Yes Protective Factors Assessment Employed: Yes ([employer], Start 10/12/21) Supportive Family: Yes Interval History Identifying Information CEDRIC MYERS is a 56-year-old F who currently lives in [facility] with her mother and step-father, has a history of inpatient [facility] July 2021, and was admitted on 09/30/21 20:59 on a 201 voluntary commitment for inability to function. Chief Complaint "I just don't know what to do." Review of Systems Sleep Information Total Hours of Sleep: 6.5 Sleep Comments: became anxious around 0400. Received 25mg Vistaril which was somewhat effective Meal Information Percent Meal Consumed - Breakfast: 100 Percent Meal Consumed - Lunch: 70 Percent Meal Consumed - Dinner: 75 Subjective Subjective Patient was seen & assessed and interval progress reviewed with nursing and social work. Patient is asking for a family meeting. 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 Tolerating medication changes (lithium). She said "people just want to lock me away" and reviewed her voluntary status and recognize not being able to smoke is a stressor for her. Physical Exam Psychiatric Orientation: alert Eye Contact: + poor eye contact Motor Behavior: no abnormal motor movements Speech: normal rate/rhythm/volume of speech (continues to have odd humming when not speaking) Affect: + depressed affect, + anxious affect and + tearful affect Mood: + depressed mood and + anxious mood Thought Process: goal directed thought process and + perseveration Thought Content: reality based without delusions Suicidal Thoughts: denies suicidal thoughts, denies suicidal plan (on unit) and denies suicidal intent Homicidal Thoughts: denies homicidal thoughts Hallucinations: no auditory hallucinations and no visual hallucinations Cognition: language grossly intact; + attention not intact Estimated Intelligence: consistent with education level Insight: + limited insight Judgement: + limited judgement Vital Signs (Past 24 Hours) Last Vital Signs Temp 36.9 C 10/10/21 06:40 Pulse 78 10/10/21 06:42 Resp 16 10/10/21 06:40 BP 114/79 10/10/21 06:42 Pulse Ox 98 10/09/21 06:00 O2 Del Method 10/09/21 06:00 Results & Data ([facility]) Current Inpatient Medications Current Inpatient Medications: Current Inpatient Medications Acetaminophen (Acetaminophen 325 Mg Tab) 650 mg PO Q4H PRN PRN Reason: Headache or Minor Fever Stop: 10/30/21 20:58 Al Hydrox/Mg Hydrox/Simethicone (Aluminum/Magnesium Susp 30 Ml Udc) 30 ml PO Q4H PRN PRN Reason: GI Upset Stop: 10/30/21 20:58 Benztropine Mesylate (Benztropine Mesylate 1 Mg Tab) 1 mg PO Q6 PRN PRN Reason: dystonia/thick tongue Stop: 10/30/21 21:01 Last Admin: 10/01/21 12:04 Dose: 1 mg Bismuth Subsalicylate (Bismuth Subsalicylate Liqd 236 Ml) 15 ml PO PRN PRN PRN Reason: Loose Stool Stop: 10/30/21 20:58 Clonazepam (Clonazepam 0.5 Mg Tab) 0.5 mg PO BIDM [place] Stop: 11/02/21 17:44 Last Admin: 10/10/21 07:57 Dose: 0.5 mg Fluoxetine HCl (Fluoxetine Hcl 20 Mg Cap) 20 mg PO QAM [place] Stop: 11/05/21 08:59 Last Admin: 10/10/21 07:58 Dose: 20 mg Hydrocortisone (Hydrocortisone 1% Crm 30 Gm Tube) 1 appln EXT BID PRN PRN Reason: affected areas Stop: 11/01/21 13:40 Last Admin: 10/06/21 09:58 Dose: 1 appln Hydroxyzine HCl (Hydroxyzine Hcl 25 Mg Tab) 50 mg PO HSZ PRN PRN Reason: Insomnia Stop: 10/30/21 20:58 Hydroxyzine HCl (Hydroxyzine Hcl 25 Mg Tab) 25 mg PO Q4H PRN PRN Reason: Anxiety Stop: 10/30/21 20:58 Last Admin: 10/07/21 16:31 Dose: 25 mg Levothyroxine Sodium (Levothyroxine Sodium 112 Mcg Tablet) 112 mcg PO DAILYBB [facility] Stop: 10/31/21 06:29 Last Admin: 10/10/21 07:57 Dose: 112 mcg [place] Carbonate ([place] Carbonate 300 Mg Tab) 300 mg PO QD@08 [facility] Stop: 11/09/21 07:59 Last Admin: 10/10/21 07:57 Dose: 300 mg [place] Carbonate ([place] Carbonate 300 Mg Tab) 600 mg PO HS [facility] Stop: 11/08/21 21:59 Last Admin: 10/09/21 20:35 Dose: 600 mg Lorazepam (Lorazepam 0.5 Mg Tab) 0.5 mg PO DAILY PRN PRN Reason: Anxiety/Agitation Stop: 11/03/21 14:58 Last Admin: 10/10/21 12:40 Dose: 0.5 mg Magnesium Hydroxide (Magnesium Hydroxide Susp 30 Ml Udc) 30 ml PO DAILY PRN PRN Reason: Constipation Stop: 10/30/21 20:58 Miscellaneous (Remove Nicoderm Patch) 1 each N/A DAILY@0859 [facility] Stop: 11/04/21 08:58 Last Admin: 10/10/21 07:59 Dose: 1 each Neomycin/Polymyxin/Bacitracin (Neomycin/Polymyx/Bacitr Oint 15 Gm Tube) 1 appln EXT BID PRN PRN Reason: Skin Irritation Stop: 10/31/21 08:31 Last Admin: 10/08/21 16:04 Dose: 1 appln Nicotine (Nicotine 21 Mg/24 Hr Tdsy) 21 mg TD QAM [facility] Stop: 11/03/21 09:14 Last Admin: 10/10/21 07:59 Dose: 21 mg Nicotine Polacrilex (Nicotine Polacrilex 2 Mg Gum) 1 piece MT PRN PRN PRN Reason: Nicotine Withdrawal Stop: 10/30/21 20:58 Last Admin: 10/03/21 15:35 Dose: 1 piece Pravastatin Sodium (Pravastatin Sod 40 Mg Tab) 40 mg PO DAILY@1700 [facility] Stop: 10/31/21 16:59 Last Admin: 10/09/21 17:29 Dose: 40 mg Propranolol HCl (Propranolol Hcl 20 Mg Tab) 20 mg PO BID [place] Stop: 11/04/21 20:59 Last Admin: 10/10/21 07:59 Dose: 20 mg Sodium Chloride (Sodium Chloride 0.65% Na Soln 45 Ml ([place])) 1 - 2 sprays NA PRN PRN PRN Reason: Nasal Dryness/Congestion Stop: 10/30/21 20:58 Trazodone HCl (Trazodone Hcl 100 Mg Tab) 100 mg PO HS [facility] Stop: 11/04/21 21:59 Last Admin: 10/09/21 20:35 Dose: 100 mg Mental Health & Subst Abuse Tx Psychiatrist Name of Psychiatrist: John Pena Psychiatrist's Date of Appointment with Psychiatrist: 10/23/21 Time of Appointment with Psychiatrist: 10:30 AM Psychiatric Appointment Comment: [address] [place], [place] Therapist Name of Therapist: Referral sent to Dr. Reinos[facility] Post Discharge Appointments Primary Care Physician Name Of Family Doctor: [facility] Date of Appointment with PCP: 10/26/21 Time of Appointment with PCP: 10:50am Provider Appointment Comment: [address] [facility], [place] [address]
[2021-10-10] MEDS: PRAVASTATIN SOD 40 MG TAB PO SCH (16:50)
[2021-10-10] MEDS: traZODone HCL 100 MG TAB PO SCH (21:35)
[2021-10-11] MEDS: clonazePAM 0.5 MG TAB PO SCH (08:49)
[2021-10-11] MEDS: LEVOTHYROXINE SODIUM 112 MCG TABLET PO SCH (08:50)
[2021-10-11] MEDS: LITHIUM CARBONATE 300 MG TAB PO SCH (08:50)
[2021-10-11] MEDS: FLUoxetine HCL 20 MG CAP PO SCH (08:50)
[2021-10-11] MEDS: PROPRANOLOL HCL 20 MG TAB PO SCH (08:50)
[2021-10-11] MEDS: NICOTINE 21 MG/24 HR TDSY TD SCH (09:00)
--- NOTE | 2021-10-11 10:45 | Discharge Summary ---
Date of Service October 11, 2021 History of Present Illness Patient familiar to our service from her last stay where she had impulsively quit her job of [address] [place] country with her ex, used meth, and ended up with psychotic symptoms. She did not have insurance until recently so follow up was with primary care and she states that [facility] wasn't a great fit for her so she stopped going to therapy after 3 sessions. She doesn't "do much" around the house as either in bed or then feeling restless/go out for a cigarette. Reviewed med rec and records from PCP office, doesn't appear she has been taking her medications as prescribed. She has been taking 1 mg Risperdal in the am and 2 mg in pm plus prn (?double prescribed) and admits to taking extra 20 mg Prozac, sounded regularly, later stated only twice as "felt desperate" to have something help her mood. She has been having difficulty forming words, tongue feels numb and appears to have some restless legs on exam. Patient did have benefit from 1 dose of Cogentin last night. Given her history of burning self in June and recent stay, ED became concerned for her passive suicidal statements and she was interested in voluntary admission. She denies thought disorganized, just "racing thoughts" and denies hallucinations. She's rather non-specific re: sleep, appetite, etc. "I just can't focus." Physical Exam Psychiatric See admission H&P and DOD assessment. Vital Signs (Past 24 Hours) Last Vital Signs Temp 37 C 10/11/21 06:48 Pulse 83 10/11/21 06:49 Resp 16 10/11/21 06:48 BP 110/76 10/11/21 06:49 Pulse Ox 98 10/09/21 06:00 O2 Del Method 10/09/21 06:00 Principal Diagnosis bipolar disorder Psychiatric Data See daily stay summary. In short, safety was maintained and the patient was generally cooperative with care. Medication changes included d/c Risperdal due to dystonia and akathisia in favor of a trial of Seroquel which also seemed to contribute to restlessness so she was started on lithium later in stay. She remained overwhelmed and tearful at times, primarily around her upcoming job start but consistently denied SI and did not exhibit any evidence of impulsivity on the unit. 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 She ultimately agreed to outpatient therapy, pursuing more realistic job prospects, and requested discharge. Mother expressed no concerns re: discharge today and her safety plan was completed prior to discharge. The patient was not taking her medications as prescribed prior to admission resulting in side effects/overmedication. She was made aware of toxicity of lithium in OD and preference for Tylenol over NSAIDs. Reviewed need to therapeutic drug level as early as 10/14 but certainly at least 2 days prior to her [facility] appointment and a lab slip was given. Her daughter will fill weekly pill minder while mother secures the remaining medication. Day of Discharge Assessment Today the patient voices readiness for discharge. They note improvement in mood and anxiety and deny thoughts to harm self or others. Thoughts remain organized and they are improved from admission. There is no evidence of psychosis. They agree to take mediations as prescribed and keep follow-up appointments. They are stable for discharge to outpatient level of care. 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 Suicide Risk Level Suicide Risk Level Comments: continues to have depression with intermittent SI and severe anxiety with panic attacks but able to safety contract and agrees to go to staff if feeling unsafe or if SI intensifies. Risk Factors Assessment Do You Have Access To A Gun?: No Mental Health Diagnoses: Yes Previous Attempt: Yes Previous Psychiatric Hospitalization: Yes Protective Factors Assessment Employed: Yes ([employer], Start 10/12/21) Supportive Family: Yes Total Time Total Time Spent: Greater Than 30 Minutes Total Time Includes: Examination of the patient, Discharge Planning and Medication Reconciliation Discharge Data Procedures Performed EKG for screening for lithium Lab Results 09/30/21 09/30/21 09/30/21 12:55 12:55 12:55 WBC 8.14 RBC 4.41 Hgb 13.4 Hct 40.5 MCV 91.8 MCH 30.4 MCHC 33.1 RDW Std Deviation 43.1 RDW Coeff of Anette 12.7 Plt Count 208 MPV 10.0 Immature Gran % (Auto) 0.4 Neut % (Auto) 65.3 Lymph % (Auto) 25.8 Frio % (Auto) 7.9 Eos % (Auto) 0.2 Baso % (Auto) 0.4 Neut # (Auto) 5.32 Lymph # (Auto) 2.10 Frio # (Auto) 0.64 Eos # (Auto) 0.02 Baso # (Auto) 0.03 Immature Gran # (Auto) 0.03 H Sodium 135 L Potassium 4.3 Chloride 101 Carbon Dioxide 26 Anion Gap 8 BUN 7 Creatinine 0.73 Est Cr Clr Drug Dosing 73.7 Est GFR ( Amer) 107.5 Est GFR (Non-Af Amer) 92.7 BUN/Creatinine Ratio 9.6 L Glucose 101 H Calcium 10.0 Total Bilirubin 0.4 AST 15 ALT 8 Alkaline Phosphatase 54 Total Protein 7.2 Albumin 4.6 Globulin 2.6 Albumin/Globulin Ratio 1.8 TSH 2.491 Urine Color Urine Appearance Urine pH Ur Specific Stopover Urine Protein Urine Glucose (UA) Urine Ketones Urine Blood Urine Nitrite Urine Bilirubin Urine Urobilinogen Ur Leukocyte Esterase Salicylates Urine Opiates Screen Ur Methadone, Qual Acetaminophen Urine Barbiturates Ur Phencyclidine (PCP) U Amphetamin/Meth Scrn MDMA (Ecstasy) Screen U Benzodiazepines Scrn Ur Cocaine Metabolite U Marijuana (THC) Screen Ethyl Alcohol mg/dL SARS-CoV-2, RNA, NAAT 09/30/21 09/30/21 09/30/21 12:55 12:55 12:55 WBC RBC Hgb Hct MCV MCH MCHC RDW Std Deviation RDW Coeff of Anette Plt Count MPV Immature Gran % (Auto) Neut % (Auto) Lymph % (Auto) Frio % (Auto) Eos % (Auto) Baso % (Auto) Neut # (Auto) Lymph # (Auto) Frio # (Auto) Eos # (Auto) Baso # (Auto) Immature Gran # (Auto) Sodium Potassium Chloride Carbon Dioxide Anion Gap BUN Creatinine Est Cr Clr Drug Dosing Est GFR ( Amer) Est GFR (Non-Af Amer) BUN/Creatinine Ratio Glucose Calcium Total Bilirubin AST ALT Alkaline Phosphatase Total Protein Albumin Globulin Albumin/Globulin Ratio TSH Urine Color Yellow Urine Appearance Clear Urine pH 6.5 Ur Specific Stopover 1.005 Urine Protein Negative Urine Glucose (UA) Negative Urine Ketones Negative Urine Blood Negative Urine Nitrite Negative Urine Bilirubin Negative Urine Urobilinogen Negative Ur Leukocyte Esterase Negative Salicylates < 3.0 L Urine Opiates Screen Ur Methadone, Qual Acetaminophen < 3 L Urine Barbiturates Ur Phencyclidine (PCP) U Amphetamin/Meth Scrn MDMA (Ecstasy) Screen U Benzodiazepines Scrn Ur Cocaine Metabolite U Marijuana (THC) Screen Ethyl Alcohol mg/dL < 10.0 SARS-CoV-2, RNA, NAAT 09/30/21 09/30/21 12:55 13:29 WBC RBC Hgb Hct MCV MCH MCHC RDW Std Deviation RDW Coeff of Anette Plt Count MPV Immature Gran % (Auto) Neut % (Auto) Lymph % (Auto) Frio % (Auto) Eos % (Auto) Baso % (Auto) Neut # (Auto) Lymph # (Auto) Frio # (Auto) Eos # (Auto) Baso # (Auto) Immature Gran # (Auto) Sodium Potassium Chloride Carbon Dioxide Anion Gap BUN Creatinine Est Cr Clr Drug Dosing Est GFR ( Amer) Est GFR (Non-Af Amer) BUN/Creatinine Ratio Glucose Calcium Total Bilirubin AST ALT Alkaline Phosphatase Total Protein Albumin Globulin Albumin/Globulin Ratio TSH Urine Color Urine Appearance Urine pH Ur Specific Stopover Urine Protein Urine Glucose (UA) Urine Ketones Urine Blood Urine Nitrite Urine Bilirubin Urine Urobilinogen Ur Leukocyte Esterase Salicylates Urine Opiates Screen Neg Ur Methadone, Qual Neg Acetaminophen Urine Barbiturates Neg Ur Phencyclidine (PCP) Neg U Amphetamin/Meth Scrn Neg MDMA (Ecstasy) Screen Neg U Benzodiazepines Scrn Neg Ur Cocaine Metabolite Neg U Marijuana (THC) Screen Neg Ethyl Alcohol mg/dL SARS-CoV-2, RNA, NAAT NEGATIVE Hospital Course (1) Bipolar disorder: Plan 10/10/21: continue current meds and treatment plan. 10/09/21: Increase Newman to 300mg qAM & 600mg qhs. Continue with other medications. Consider adjustment of fluoxetine if continues to present as more severe depression. 10/08/21: Continue with current medications and treatment plan. 10/07/21: Titrate Newman to 300mg BID. EKG done and normal. 10/06/21: Start Newman carbonate 300mg qhs 10/05/21: Increase propranolol to 20mg BID, taper fluoxetine to 20mg qd due to concern for activation. Discontinue seroquel as seems to be worsening akathisia and schedule trazodone for sleep. 10/04/21: Added propranolol 10mg BID for akathisia. Continue with fluoxetine, Klonopin, seroquel. Additional ativan dose ordered given her level of acute distress. 10/03/21: Titrate Seroquel 200 mg. Increase Klonopin to 0.5 mg BIDM. 10/02/21: Titrate hx Seroquel 150 mg. Change Klonopin from prn to standing. Rash appears stress induced rather than generalized drug rash but will follow. Hydrocortisone cream. 10/01/21: The patient was admitted to the [facility] ([facility] mental [facility]) on q15 min checks (behavioral with suicide precautions) for safety. The patient will participate in group, recreational, and milieu therapies and will be offered additional individual and family sessions as clinically appropriate. Risks/benefits/alternatives were reviewed re: antipsychotics for mood and/or psychosis. Discussion included but was not limited to metabolic side effects, risks of TD and suicidal thoughts. There were no abnormal motor movements at baseline. Fasting glucose and lipid panel on file. The patient agrees to a trial of Seroquel 100 mg this hs in place of Risperdal and 25 mg q 6 prn. Patient is having side effects to Risperdal so will not cross taper, dyskinesia unlikely as replacing with Seroquel. Mental Health & Subst Abuse Tx Psychiatrist Name of Psychiatrist: [facility] Date of Appointment with Psychiatrist: 10/23/21 Time of Appointment with Psychiatrist: 10:30 AM Psychiatric Appointment Comment: [address] [place], [place] Therapist Name of Therapist: Referral sent to [facility] The[facility]ist's Time of Therapist Appointment: Follow up to schedule Therapy Appointment Comment: [id number], [place] [address] Post Discharge Appointments Primary Care Physician Name Of Family Doctor: [facility] Date of Appointment with PCP: 10/26/21 Time of Appointment with PCP: 10:50am Provider Appointment Comment: [address] [facility] [facility], [place] [address] Contact Information Discharge Discharge Address: [address] [place] [address] [place] [address] Discharge Plan Discharge Items Patient Disposition: Home - Self-Care Reason For Visit: MAJOR DEPRESSION Discharge Diagnosis: bipolar disorder Condition on Discharge: Good Activity: Resume your previous activity Non-emergency contact: Primary Care Provider, Psychiatrist and Therapist Call non-emergency contact if: you have any medication questions and your symptoms worsen Follow-up/Referrals: Janelle Nguyen [Primary Care Provider] - Diet: Regular Addtl Attending Provider Instructions: SPECIAL CARE INSTRUCTIONS: 1. Follow through with your scheduled aftercare appointments. If unable to keep an appointment, please call to reschedule. 2. Take your medication only as prescribed. Medication should not be changed or stopped without the approval of your doctor. In the event of worsening symptoms or concerns about side effects, contact your doctor immediately. 3. Utilize new healthy coping skills, anger management skills, and stress management skills learned during your hospitalization. Journal feelings and process them with a support person. Identify stressors or situations that may result in relapse, deterioration or inappropriate behaviors and develop a plan to deal with those issues. 4. If your coping skills are ineffective and you are in crisis, contact your outpatient providers for direction. If unable to reach your providers, please call the [facility] CRISIS LINE AT , go to the [facility] walk-in center at [address], [address], [place], or go to the closest Emergency Room. 5. Avoid alcohol and un-prescribed drugs. 6. You have been provided with the Mental Health Advance Directives Pamphlet for your review. 7. Your condition is stable for discharge to outpatient level of care, but recovery is an ongoing process. Ifthoughts to harm yourself or others return, follow the safety plan developed during your stay. Planning for a safe return home includes securing weapons. Our treatment team recommends weaponsbe removed from the home until your outpatient provider reassesses your progress. In rare cases where the items themselvescannot be removed, guns and ammunitionshould be secured separatelyand keys stored by a reliable personoutside of the home. If you were admitted on an involuntary commitment, the police or other legal authorities may be involved in this process. AFTERCARE APPOINTMENTS: * Please call your insurance company prior to your scheduled appointment to confirm your aftercare providers are covered. Take your insurance information to your appointments. WHO TO CALL AND WHEN: Medical Emergencies: For questions or emergencies related to your hospital stay, please contact the Inpatient Behavioral Health Unit at [phone]. A media liaison officer is on-call 20/09 for the Behavioral Health Unit for emergencies At any time you feel your situation is an emergency, you may also call 911 immediately. Pending Studies at Discharge: No Stand-Alone Forms: My [facility], Smoking Cessation Medications and DC Order Prescriptions: New propranolol 20 mg Tablet 20 mg PO BID Qty: 60 0RF trazodone 100 mg Tablet 100 mg PO HS Qty: 30 0RF fluoxetine 20 mg Capsule 20 mg PO QAM Qty: 30 0RF lithium carbonate 300 mg Tablet 300 mg PO .am Qty: 30 0RF Rx Instructions: and 2 tabs po qhs acetaminophen 325 mg Tablet 650 mg PO Q4H PRN (Reason: fever or pain) Qty: 1 0RF Rx Instructions: use instead of NSAIDS like Ibuprofen as they can affect lithium levels Triple Antibiotic 3.5mg-400 unit- 5,000 unit/gram Ointment 1 applic EXT BID PRN (Reason: skin irritation) Qty: 9 0RF hydrocortisone 1 % Ointment 1 applic EXT BID PRN (Reason: itching) Qty: 28.35 0RF Continued levothyroxine 112 mcg tablet 112 mcg PO DAILY Qty: 90 3RF pravastatin 40 mg tablet 40 mg PO DAILY clonazepam 0.5 mg tablet 0.5 mg PO BID Qty: 30 0RF Discontinued fluoxetine 20 mg capsule 40 mg PO DAILY Rx Instructions: Take 2 capsules by mouth once daily risperidone 0.5 mg tablet 0.5 mg PO QAM risperidone 0.5 mg Tablet 0.5 mg PO BID PRN (Reason: Anxiety) risperidone 1 mg tablet 1 mg PO HS trazodone 150 mg tablet 75 mg PO HS Rx Instructions: pt reports she is taking 75 mg Discharge Orders: Discharge Order (Routine); Ordered 10/11/21 Ordered By: Liat Guzman Admission Data Admit Date/Time: 09/30/21 20:59 Attending Provider: Liat Guzman Admit Provider: Liat Guzman Primary Care Provider: Janelle Nguyen Coding Level of Care Code 89902 D/C day mgmt > 30 min Diagnoses Bipolar disorder F31.9
[2021-10-11] MEDS: LORazepam 0.5 MG TAB PO PRN (12:31)
[2021-10-11] MEDS ORDERED: DESTROY THIS MEDICATION ONE (14:15)
== END 2021-10-11 15:00 | disposition home or self-care (01) | DRG 885 ==
LOC: ED 12:31 → 3S 20:59
DX: E78.5 Hyperlipidemia, unspecified; Z91.14 Patient's other noncompliance with medication regimen; F31.9 Bipolar disorder, unspecified; F41.9 Anxiety disorder, unspecified; F17.210 Nicotine dependence, cigarettes, uncomplicated; Z88.2 Allergy status to sulfonamides; I10 Essential (primary) hypertension